=== PATIENT | male | born 1945 | race Caucasian/White ===

== ENCOUNTER 2018-10-14 09:51 | Inpatient (IN) | payer OTHER, MEDICARE ==
[2018-10-14] MEDS ORDERED: SODIUM CHLORIDE 0.9% 500 ML INFUS.BAG IV ONE ×2 (10:48→13:15)
[2018-10-14] MEDS ORDERED: PIPERACILLIN/TAZOB 3.375 GM 3.375 GM in DEXTROSE 5%-WATER - 50 ML IVPB ONE (10:48)
[2018-10-14] MEDS ORDERED: ACETAMINOPHEN 1000 MG/100 ML VIAL (NON FORMULARY) IVPB ONE (10:48)
[2018-10-14] MEDS ORDERED: ACETAMINOPHEN INJECTION 100 ML IVPB ONE (11:03)
[2018-10-14] MEDS ORDERED: PIPERACILLIN/TAZOB 3.375 GM 3.375 GM/50 ML BAG IVPB ONE (11:04)
[2018-10-14 11:12] LABS: BASO % 0.4 % (0-2.0); HEMATOCRIT 39.5 % (35.4-49); HEMOGLOBIN 13.2 GM/dL (11.7-16.9); LYMPH % 9.4 % (8-40); MCH 31.5 pg (25.7-33.7); MCHC 33.4 g/dl (32.0-35.9); MEAN CELL VOLUME 94.1 fl (80-96); MEAN PLT VOLUME 10.1 fl (7.5-11.1); MONO % 7.1 % (3.8-10.2); NEUT % 83.1 % (42.8-82.8); PLATELET COUNT 66 K/MM3 (134-434); RDW 14.4 % (11.9-15.9); WHITE BLOOD COUNT 3.6 K/mm3 (4.0-10.0)
[2018-10-14 11:15] LABS: VENOUS PC02 43.5 mmHg (38-52); VENOUS PH 7.4 (7.32-7.42); VENOUS PO2 30.5 mmHg (28-48)
[2018-10-14 11:27] LABS: INR 1.04 (0.83-1.09); PROTHROMBIN TIME (PATIENT) 12.3 SEC (9.7-13.0)
--- NOTE | 2018-10-14 11:35 | PDOC ---
History of Present Illness - General Chief Complaint: Respiratory Stated Complaint: COUGHING Time Seen by Provider: 10/14/18 10:43 - History of Present Illness Initial Comments: Curtis Meek is a 73yo man with a PMH of b/l kidney transplant on immunosuppresive therapy (tacrolimus, mycophenylate, prednisone), CAD s/p SC, s/ p unknown heart valve surgery, HTN, HLD who presents with 4 days of fever, productive cough, hiccups, and watery diarrhea. He reports that he is most concerned with the hiccups, but he does note a productive cough with blood-tinged sputum. He and his daughter felt that the cough might be due to breathing in dust at work several days ago. He has additionally had a subjective fever at home, but he has not taken any acetaminophen or any other medication for the fever. Mr Meek usually follows at [facility], but his daughter brought him to [facility] today because she was concerned the ED wait at [facility] would be too long. Neither knows whether Mr Meek received a flu shot this year, but they do report that he is compliant with his medications. He denies any nasal congestion , sore throat, known sick contacts, vomiting, or chills. He does report that his hiccups are continuos and prevent him from sleeping. He states that he has been eating/drinking normally but admits to some nausea and multiple episodes of watery diarrhea yesterday. Past History - Past Medical History Allergies/Adverse Reactions: Allergies Allergy/AdvReac Type Severity Reaction Status Date / Time No Known Allergies Allergy Verified 10/14/18 09:58 Home Medications: Ambulatory Orders Nifedipine [Nifedical Xl] 30 mg PO DAILY 08/24/16 Prednisone 5 mg PO DAILY 08/24/16 Tacrolimus [Prograf] 1 mg PO QID 08/24/16 Aspirin [ASA -] 81 mg PO DAILY 10/14/18 Atorvastatin Ca [Lipitor] 10 mg PO HS 10/14/18 Dapsone 100 mg PO DAILY 10/14/18 Mycophenolate Sodium [Mycophenolic Acid] 360 mg PO BID 10/14/18 Pantoprazole Sodium [Protonix -] 40 mg PO DAILY 10/14/18 Anemia: No Asthma: No Cancer: No Cardiac Disorders: Yes (2014) CVA: Yes (stroke 2006) COPD: No Dementia: No Diabetes: No GI Disorders: No Disorders: No HTN: Yes Liver Disease: No Seizures: No Thyroid Disease: No - Surgical History Cardiac Surgery: Yes (heart valve replacement 2014) Orthopedic Surgery: Yes (right knee fluid drained) - Suicide/Smoking/Psychosocial Hx Smoking History: Never smoked Have you smoked in the past 12 months: No Hx Alcohol Use: No Drug/Substance Use Hx: No Substance Use Type: None Review of Systems - Review of Systems Comments:: General: No weight or appetite change, no malaise. +Fever, +immunosuppressed HEENT: No changes in vision, no changes in hearing, no congestion, no sore throat CV: No chest pain, no palpitations, no LE edema. h/o SC and valve replacement Pulm: +Cough, see HPI GI: +nausea, +diarrhea. No vomiting. : No frequency, no urgency, no dysuria. h/o b/l kidney transplant Musc: No back pain, no joint swelling, no recent injury Skin: No rash, no lesions, no erythema Endo: No excessive thirst, no heat/cold intolerance Heme: No unusual bruising or bleeding, no swollen glands Neuro: No syncope, no numbness/tingling, no focal weakness Vasc: No claudication Psych: No recent change in mood, no SI or HI *Physical Exam - Vital Signs Last Vital Signs Temp Pulse Resp BP Pulse Ox 101.7 F H 94 H 20 111/56 L 97 10/14/18 09:54 10/14/18 09:54 10/14/18 09:54 10/14/18 09:54 10/14/18 09:54 - Physical Exam Comments: General: Comfortable, no acute distress HEENT: PERRL, EOMI, MMM, voice normal, normal neck ROM, no LAD Cards: RRR, no murmur appreciated Pulm: Comfortable on room air, cough with deep breaths Abd: Soft, nontender, nondistended Ext: Atraumatic. No LE edema. ROM intact. Strength 5/5 and equal bilaterally Vasc: Extremities WWP. Palpable radial and pedal pulses bilaterally Skin: Normal color, no rashes or lesions Neuro: A&Ox3, CN grossly intact, normal speech, motor/sensory grossly intact and symmetric Psych: Mood appropriate to situation Moderate Sedation - Procedure Monitoring Vital Signs: Procedure Monitoring Vital Signs Temperature 101.7 F H 10/14/18 09:54 Pulse Rate 94 H 10/14/18 09:54 Respiratory Rate 20 10/14/18 09:54 Blood Pressure 111/56 L 10/14/18 09:54 O2 Sat by Pulse Oximetry (%) 97 10/14/18 09:54 ED Treatment Course - LABORATORY CBC & Chemistry Diagram: 10/14/18 11:00 10/14/18 11:00 - RADIOLOGY Radiology Studies Ordered: Category Date Time Status CHEST X-RAY PORTABLE* [RAD] Stat Radiology 10/14/18 10:47 Ordered Medical Decision Making - Medical Decision Making 10/14/18 10:51 Curtis Meek is a 73yo man with a PMH of b/l kidney transplant on immunosuppresive therapy (tacrolimus, mycophenylate, prednisone), CAD s/p SC, s/ p unknown heart valve surgery, HTN, HLD who presents with 4 days of fever, productive cough, hiccups, and watery diarrhea. He was febrile to 101.7F on arrival to the ED. - Given fever and immunosuppresion, will start sepsis workup. With cough and diarrhea, may have influenza. - CBC, CMP, coags, trop, EKG, CXR, lactate, blood cultures, influenza - Will check tacrolimus level - 1L NS for sepsis, 1g IV tylenol for fever - Empiric vanc/zosyn 10/14/18 11:45 - Labs pending - CXR completed. Shows elevated R hemidiaphragm (previously seen) and RLL infiltrate. - EKG completed. NSR w/ a PVC. - Plan to admit for pneumonia once labs resulted. 10/14/18 12:28 - Labs reviewed. Notable for elevated Cr at 1.4, likely ALONSO. Trop 0.3. Though this could be chronic given h/o kidney transplant, valve replacement or related to elevated HR at 94, will need to repeat trop. - Will page for admission for pneumonia, trop elevation, ALONSO. 10/14/18 13:14 - Spoke with hospitalist, will accept for admission to telemetry. Requested cardiology consult, 1x dose plavix. 10/14/18 13:28 - Pt follows with Dr Murray; spoke to Dr Yun (on-call surgical scrub technician covering for Dr Murray). Reports that pt had TAVR on 05/27/16. Also has h/o DVT, mitral regurgitation, osteoporosis. Had most recent cath in 05/03/16 shows 2nd diagonal stenosis. He will either see Mr Meek or make sure that Dr Murray is Discussed with Dr Love. Sierra Palomo PGY1 *DC/Admit/Observation/Transfer Diagnosis at time of Disposition: Elevated troponin, Elevated serum creatinine, Pneumonia - Discharge Dispostion Decision to Admit order: Yes - Referrals - Patient Instructions - Post Discharge Activity
[2018-10-14 11:49] LABS: ALBUMIN 3.7 g/dl (3.4-5.0); ALK PHOS 52 U/L (45-117); ANION GAP 10 MMOL/L (8-16); BILIRUBIN,TOTAL 1.1 mg/dL (0.2-1); BLOOD UREA NITROGEN 21 mg/dL (7-18); CALCIUM 8.1 mg/dL (8.5-10.1); CHLORIDE 97 mmol/L (98-107); CO2 26 mmol/L (21-32); CREATININE 1.4 mg/dL (0.55-1.3); GLUCOSE,RANDOM 119 mg/dL (74-106); POTASSIUM 3.9 mmol/L (3.5-5.1); SGOT/AST 66 U/L (15-37); SGPT/ALT 21 U/L (13-61); SODIUM 133 mmol/L (136-145); TOT PROT 6.2 g/dl (6.4-8.2)
--- NOTE | 2018-10-14 11:57 | PDOC ---
Attending Attestation - Medical Decision Making 10/14/18 13:[address] Murray, patient's railcar carpenter, call returned from Dr. David Yun (pet resort concierge for Dr. Murray) case discussed with resident Dr. Palomo. <James Navarro - Last Filed: 10/14/18 13:22> - Resident Resident Name: Sierra Palomo - ED Attending Attestation I have performed the following: I have examined & evaluated the patient, The case was reviewed & discussed with the resident, I agree w/resident's findings & plan, Exceptions are as noted - HPI HPI: 10/14/18 11:51 The patient is a 73 year old male, with a significant past medical history of hypertension, hyperlipidemia, GERD, CAD (s/p [place] and unknown valve replacement), and kidney transplants, who presents to the emergency department with, 3 days of congestion, cough and fever. He denies any recent headache or dizziness. He denies any recent nausea, vomit, diarrhea or constipation. He denies any recent chest pain or shortness of breath. He denies any recent dysuria, frequency, urgency or hematuria. Allergies: NKDA Past surgical history: Bilateral kidney transplant, Unknown valve replaced. Social History: Nonsmoker. Denies EtOH use and recreational drug use. - Physicial Exam PE: 10/14/18 11:57 GENERAL: Awake, alert, and fully oriented, in no acute distress. HEAD: No signs of trauma EYES: PERRLA, EOMI, sclera anicteric, conjunctiva clear ENT: Auricles normal inspection, hearing grossly normal, nares patent, oropharynx clear without exudates. Moist mucosa NECK: Nontender, no stepoffs, Normal ROM, supple, no lymphadenopathy, JVD, or masses LUNGS: Breath sounds equal, clear to auscultation bilaterally. No wheezes, and no crackles HEART: Regular rate and rhythm, normal S1 and S2, no murmurs, rubs or gallops ABDOMEN: Soft, nontender, normoactive bowel sounds. No guarding, no rebound. No masses EXTREMITIES: Normal range of motion, no edema. No clubbing or cyanosis. No cords, erythema, or tenderness NEUROLOGICAL: Cranial nerves II through XII intact. 5/5 strength and sensation in all extremities, Normal speech, normal gait, normal cerebellar function SKIN: Warm, Dry, normal turgor, no rashes or lesions noted. - Critical Care Time Total Critical Care Time: 60 Critical Care Statement: The care of this patient involved high complexity decision making to prevent further life threatening deterioration of the patient 's condition and/or to evaluate & treat vital organ system(s) failure or risk of failure. - Medical Decision Making 10/14/18 11:57 73 M with renal transplant, on immunosuppression, presenting with fever. Will evaluate for sepsis. - Labs, cultures - CXR, UA - IVF, tylenol - Vanc, zosyn - Admit 10/14/18 12:08 CXR shows RLL PNA <Caleb Love - Last Filed: 10/18/18 09:40> Attestations - Attestations 10/14/18 13:25 Documentation prepared by James Navarro, acting as resident medical officer for Caleb Love MD. <James Navarro - Last Filed: 10/14/18 13:22>
[2018-10-14] MEDS ORDERED: CLOPIDOGREL BISULFATE 75 MG TABLET (FP) PO ONE (13:15)
[2018-10-14] MEDS ORDERED: CLOPIDOGREL BISULFATE 75 MG TABLET (FP) ONE (13:32)
[2018-10-14 13:53] LABS: URINE APPEARANCE CLEAR; URINE BILIRUBIN NEGATIVE (<2.0 mg/dL); URINE GLUCOSE (UA) NEGATIVE (NEGATIVE); URINE KETONE NEGATIVE (NEGATIVE); URINE LEUK ESTERASE NEGATIVE (NEGATIVE); URINE NITRITE NEGATIVE (NEGATIVE); URINE PROTEIN 2+ (NEGATIVE); URINE UROBILINOGEN NEGATIVE mg/dL (0.2-1.0)
[2018-10-14 14:07] LABS: URINE COLOR DK YELLOW
[2018-10-14 14:08] LABS: EPI CELLS RARE /HPF (FEW); URINE MUCUS RARE
[2018-10-14] MEDS ORDERED: AZITHROMYCIN IVPB 500 MG/250 ML BAG IVPB ONE (14:25)
--- NOTE | 2018-10-14 14:25 | HP ---
CHIEF COMPLAINT:cough , fever and hiccough PCP: Damian HISTORY OF PRESENT ILLNESS: The patient is a 73 year old male, with a significant past medical history of hypertension, hyperlipidemia, GERD, CAD (s/p AR and unknown valve replacement), and kidney transplants, who presents to the emergency department with, 3 days of congestion, cough and fever. He denies any recent headache or dizziness. He denies any recent nausea, vomit, diarrhea or constipation. He denies any recent chest pain or shortness of breath. He denies any recent dysuria, frequency, urgency or hematuria. Daughter on bed side and ER course was notable for: (1)pneumonia (2)elevated troponin (3) immuno suppressed Recent Travel:non PAST MEDICAL HISTORY: hypertension, hyperlipidemia, GERD, CAD (s/p AR and unknown valve replacement) , and kidney transplants, PAST SURGICAL HISTORY: heart valve replacement Social History: Smoking:none Alcohol:none Drugs: none Family History: Allergies none No Known Allergies Allergy (Verified 10/14/18 09:58) HOME MEDICATIONS: Home Medications Medication Instructions Recorded Nifedipine [Nifedical Xl] 30 mg PO DAILY 08/24/16 Prednisone 5 mg PO DAILY 08/24/16 Tacrolimus [Prograf] 1 mg PO QID 08/24/16 Aspirin [ASA -] 81 mg PO DAILY 10/14/18 Atorvastatin Ca [Lipitor] 10 mg PO HS 10/14/18 Dapsone 100 mg PO DAILY 10/14/18 Mycophenolate Sodium [Mycophenolic 360 mg PO BID 10/14/18 Acid] Pantoprazole Sodium [Protonix -] 40 mg PO DAILY 10/14/18 REVIEW OF SYSTEMS CONSTITUTIONAL: present fever, chills, diaphoresis, generalized weakness, malaise, loss of appetite, weight change HEENT: Absent: rhinorrhea, nasal congestion, throat pain, throat swelling, difficulty swallowing, mouth swelling, ear pain, eye pain, visual changes CARDIOVASCULAR: Absent: chest pain, syncope, palpitations, irregular heart rate, lightheadedness , peripheral edema RESPIRATORY: cough, shortness of breath, dyspnea with exertion, wheezing, negative stridor , hemoptysis GASTROINTESTINAL: Absent: abdominal pain, abdominal distension, nausea, vomiting, diarrhea, constipation, melena, hematochezia GENITOURINARY: Absent: dysuria, frequency, urgency, hesitancy, hematuria, flank pain, genital pain MUSCULOSKELETAL: Absent: myalgia, arthralgia, joint swelling, back pain, neck pain SKIN: Absent: rash, itching, pallor HEMATOLOGIC/IMMUNOLOGIC: Absent: easy bleeding, easy bruising, lymphadenopathy, frequent infections ENDOCRINE: Absent: unexplained weight gain, unexplained weight loss, heat intolerance, cold intolerance NEUROLOGIC: Absent: headache, focal weakness or paresthesias, dizziness, unsteady gait, seizure, mental status changes, bladder or bowel incontinence PSYCHIATRIC: Absent: anxiety, depression, suicidal or homicidal ideation, hallucinations. PHYSICAL EXAMINATION Vital Signs - 24 hr 10/14/18 10/14/18 09:54 11:20 Temperature 101.7 F H Pulse Rate 94 H Respiratory 20 Rate Blood Pressure 111/56 L O2 Sat by Pulse 97 98 Oximetry (%) GENERAL: Awake, alert, and fully oriented, congested HEAD: Normal with no signs of trauma. EYES: Pupils equal, round and reactive to light, extraocular movements intact, sclera anicteric, conjunctiva clear. No lid lag. EARS, NOSE, THROAT: Ears normal, nares patent, oropharynx clear without exudates. Moist mucous membranes. NECK: Normal range of motion, supple without lymphadenopathy, JVD, or masses. LUNGS: Breath sounds equal, he has bronchial breathing rt lower lung HEART: Regular rate and rhythm, normal S1 and S2 with murmur, rub or gallop. ABDOMEN: Soft, nontender, not distended, normoactive bowel sounds, no guarding, no rebound, no masses. No hepatomegaly or splenomegaly. MUSCULOSKELETAL: Normal range of motion at all joints. No bony deformities or tenderness. No CVA tenderness. UPPER EXTREMITIES: 2+ pulses, warm, well-perfused. No cyanosis. No clubbing. No peripheral edema. LOWER EXTREMITIES: 2+ pulses, warm, well-perfused. No calf tenderness. No peripheral edema. NEUROLOGICAL: Cranial nerves II-XII intact. Normal speech. Normal gait. PSYCHIATRIC: Cooperative. Good eye contact. Appropriate mood and affect. SKIN: Warm, dry, normal turgor, no rashes or lesions noted, normal capillary refill. Laboratory Results - last 24 hr 10/14/18 10/14/18 10/14/18 11:00 11:00 11:00 WBC 3.6 L RBC 4.20 Hgb 13.2 Hct 39.5 MCV 94.1 MCH 31.5 MCHC 33.4 RDW 14.4 Plt Count 66 L MPV 10.1 D Absolute Neuts (auto) 3.0 Neutrophils % 83.1 H Lymphocytes % 9.4 D Monocytes % 7.1 Eosinophils % 0.0 D Basophils % 0.4 Nucleated RBC % 0 PT with INR 12.30 INR 1.04 PTT (Actin FS) 31.0 VBG pH 7.40 POC VBG pCO2 43.5 POC VBG pO2 30.5 Mixed VBG HCO3 26.2 H Sodium Potassium Chloride Carbon Dioxide Anion Gap BUN Creatinine Creat Clearance w eGFR Random Glucose Lactic Acid Calcium Total Bilirubin AST ALT Alkaline Phosphatase Troponin I Total Protein Albumin Urine Color Urine Appearance Urine pH Ur Specific Cocoa Urine Protein Urine Glucose (UA) Urine Ketones Urine Blood Urine Nitrite Urine Bilirubin Urine Urobilinogen Ur Leukocyte Esterase Urine WBC (Auto) Urine RBC (Auto) Ur Epithelial Cells Urine Mucus Influenza A (Rapid) Influenza B (Rapid) 10/14/18 10/14/18 10/14/18 11:00 11:00 11:00 WBC RBC Hgb Hct MCV MCH MCHC RDW Plt Count MPV Absolute Neuts (auto) Neutrophils % Lymphocytes % Monocytes % Eosinophils % Basophils % Nucleated RBC % PT with INR INR PTT (Actin FS) VBG pH POC VBG pCO2 POC VBG pO2 Mixed VBG HCO3 Sodium 133 L Potassium 3.9 Chloride 97 L Carbon Dioxide 26 Anion Gap 10 BUN 21 H Creatinine 1.4 H Creat Clearance w eGFR 49.96 Random Glucose 119 H Lactic Acid 1.4 Calcium 8.1 L Total Bilirubin 1.1 H AST 66 H ALT 21 Alkaline Phosphatase 52 Troponin I 0.30 H Total Protein 6.2 L Albumin 3.7 Urine Color Urine Appearance Urine pH Ur Specific Cocoa Urine Protein Urine Glucose (UA) Urine Ketones Urine Blood Urine Nitrite Urine Bilirubin Urine Urobilinogen Ur Leukocyte Esterase Urine WBC (Auto) Urine RBC (Auto) Ur Epithelial Cells Urine Mucus Influenza A (Rapid) Influenza B (Rapid) 10/14/18 10/14/18 11:00 13:45 WBC RBC Hgb Hct MCV MCH MCHC RDW Plt Count MPV Absolute Neuts (auto) Neutrophils % Lymphocytes % Monocytes % Eosinophils % Basophils % Nucleated RBC % PT with INR INR PTT (Actin FS) VBG pH POC VBG pCO2 POC VBG pO2 Mixed VBG HCO3 Sodium Potassium Chloride Carbon Dioxide Anion Gap BUN Creatinine Creat Clearance w eGFR Random Glucose Lactic Acid Calcium Total Bilirubin AST ALT Alkaline Phosphatase Troponin I Total Protein Albumin Urine Color Dk yellow Urine Appearance Clear Urine pH 5.0 Ur Specific Cocoa 1.034 Urine Protein 2+ H Urine Glucose (UA) Negative Urine Ketones Negative Urine Blood Negative Urine Nitrite Negative Urine Bilirubin Negative Urine Urobilinogen Negative Ur Leukocyte Esterase Negative Urine WBC (Auto) 1 Urine RBC (Auto) None Ur Epithelial Cells Rare Urine Mucus Rare Influenza A (Rapid) Negative Influenza B (Rapid) Negative ASSESSMENT/PLAN: The patient is a 73 year old male, with a significant past medical history of hypertension, hyperlipidemia, GERD, CAD (s/p AR and unknown valve replacement), and kidney transplants, who presents to the emergency department with, 3 days of congestion, cough and fever. Pneuomnia will start on pip and zithromax blood c/s oxygnen bronchodilator prn oxygen htn nefidipine elevaed cardiac enzymes admit to tele , aspirin cardiac consult called and md aware serial troponins Kidney transplant start on his usual medication high lipids start lipitor gerd protonox dvt prophylaxis zeus stocking no need for heaprin dw daughter in detail about prognosis.' 6 pm his 2nd troponin is coming down and he has no chest pains
[2018-10-14] MEDS: AZITHROMYCIN IVPB 500 MG/250 ML BAG IVPB SCH (14:27)
[2018-10-14] MEDS: DAPSONE 100 MG TABLET PO SCH ×2 (15:03→15:05)
[2018-10-14] MEDS ORDERED: PIPERACILLIN/TAZOBACTAM 4.5 GM VIAL IVPB SCH (18:00)
--- NOTE | 2018-10-14 18:14 | CON.CARD ---
Cardiology Consult (text) - Consultation Consultation Note: I had a long telephone conversation with Dr. Palomo in ED regarding Mr. Meek 's cardiac history at 2:00 PM. I did not realized it was an official consult. I did ask Dr. Palomo whether I should see the patient. Mr. Meek is a 73 year-old with a PMHx hypertension, non-obstructive CAD, cardiac cath 05/31/2016 at [facility] showed only D2 stenosis. 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 LVEF = 65%, normal function AV and mild MR. also history of TIA, cardiac arrest 04/14/15, received 200J shock x1 in the field, [facility] and hypothermia protocol , DVT, ESRD s/p first renal transplant 10/24/2001 amd re-transplant 01/22/2010 with good baseline transplant renal function, thrombocytopenia treated with steroids for ITP. Mr. Meek was brought to ED 10/14/2018 with 4 days of fever, productive cough, hiccups, and watery diarrhea. He was found to have RLL pneumonia. Mildly elevated troponin noted. There is no reported angina. Mr. Meek has no significant CAD. The mildly elevated troponin could be caused be demand ischemia. Therefore, he should not be treated for acute coronary syndrome. Please call us if additional question arises.
[2018-10-14] MEDS ORDERED: PIPERACILLIN/TAZOB 4.5 GM 4.5 GM/100 ML BAG IVPB ONE (18:30)
--- NOTE | 2018-10-14 18:30 | EKG ---
Test Reason : Blood Pressure : / mmHG Vent. Rate : 079 BPM Atrial Rate : 079 BPM P-R Int : 202 ms QRS Dur : 100 ms QT Int : 340 ms P-R-T Axes : 059 -27 040 degrees QTc Int : 389 ms SINUS RHYTHM WITH PREMATURE VENTRICULAR COMPLEXES WHEN COMPARED WITH ECG OF 25-MAY-2015 23:17, PREMATURE VENTRICULAR COMPLEXES ARE NOW PRESENT VENT. RATE HAS INCREASED BY 27 BPM Confirmed by DEEPA SCOTT, TRACEY ([id number]) on 10/14/2018 6:30:32 PM Referred By: Confirmed By:TRACEY ARENAS MD
[2018-10-14] MEDS: PIPERACILLIN/TAZOB 4.5 GM 4.5 GM in DEXTROSE 5%-WATER 100 ML IVPB SCH (18:35)
[2018-10-14] MEDS: TACROLIMUS ANHYDROUS 1 MG CAPSULE PO SCH ×2 (18:49→23:07)
[2018-10-14] MEDS ORDERED: ATORVASTATIN CA 10 MG TABLET (FP) ONE (23:04)
[2018-10-14] MEDS: ATORVASTATIN CA 10 MG TABLET (FP) PO SCH (23:06)
[2018-10-14] MEDS: MYCOPHENOLATE SODIUM 360 MG TABLET.DR PO SCH (23:06)
[2018-10-14] MEDS ORDERED: INSULIN (LEVEMIR) 100 UNITS/ML UNITS SQ ONE (23:50)
[2018-10-14] MEDS ORDERED: INSULIN (NOVOLOG) ASPART 100 UNITS/ML 10ML VIAL ONE (23:51)
[2018-10-15 00:58] VITALS: BMI 26.8
[2018-10-15] MEDS ORDERED: PIPERACILLIN/TAZOBACTAM 4.5 GM VIAL IVPB ONE ×2 (01:39→09:28)
[2018-10-15] MEDS ORDERED: DEXTROSE 5%-WATER 100 ML IVPB ONE ×2 (01:40→09:28)
[2018-10-15] MEDS: PIPERACILLIN/TAZOB 4.5 GM 4.5 GM in DEXTROSE 5%-WATER 100 ML IVPB SCH ×3 (01:42→20:44)
[2018-10-15 07:19] LABS: BASO % 0.3 % (0-2.0); HEMATOCRIT 37.5 % (35.4-49); HEMOGLOBIN 12.6 GM/dL (11.7-16.9); LYMPH % 12.9 % (8-40); MCH 31.6 pg (25.7-33.7); MCHC 33.6 g/dl (32.0-35.9); MEAN CELL VOLUME 93.9 fl (80-96); MONO % 6.3 % (3.8-10.2); NEUT % 80.5 % (42.8-82.8); PLATELET COUNT 61 K/MM3 (134-434); RDW 14.4 % (11.9-15.9); WHITE BLOOD COUNT 3.2 K/mm3 (4.0-10.0)
[2018-10-15 07:44] LABS: ALBUMIN 3.3 g/dl (3.4-5.0); ALK PHOS 43 U/L (45-117); ANION GAP 10 MMOL/L (8-16); BILIRUBIN,TOTAL 1.1 mg/dL (0.2-1); BLOOD UREA NITROGEN 19 mg/dL (7-18); CALCIUM 7.7 mg/dL (8.5-10.1); CHLORIDE 100 mmol/L (98-107); CO2 23 mmol/L (21-32); CREATININE 1.2 mg/dL (0.55-1.3); GLUCOSE,RANDOM 91 mg/dL (74-106); POTASSIUM 3.9 mmol/L (3.5-5.1); SGOT/AST 69 U/L (15-37); SGPT/ALT 20 U/L (13-61); SODIUM 133 mmol/L (136-145); TOT PROT 5.7 g/dl (6.4-8.2)
--- NOTE | 2018-10-15 07:57 | PN ---
Progress Note, Physician History of Present Illness: 24H events: -admitted for RLL PNA being treated with azithromycin and zosyn -called pts pharmacy to verify meds list, tacro dosing is 3mg BID -spoke with pt's transplant provider at [facility] Dr. Kavon Whitley -WBC continues to slowly downtrend -pt with pervasive hiccups, which interrupt his sleep -pt reports orthopnea - Current Medication List Current Medications: Active Medications Aspirin (Asa -) 81 mg PO DAILY [facility] Atorvastatin Calcium (Lipitor -) 10 mg PO HS [facility] Last Admin: 10/14/18 23:06 Dose: 10 mg Dapsone (Dapsone -) 100 mg PO DAILY [facility] Last Admin: 10/14/18 15:05 Dose: Not Given Azithromycin (Zithromax 500mg Ivpb (Pre-Docked)) 500 mg in 250 mls @ 250 mls/ hr IVPB DAILY [facility] Last Admin: 10/14/18 14:27 Dose: 250 mls/hr Piperacillin Sod/Tazobactam (Sod 4.5 gm/ Dextrose) 100 mls @ 200 mls/hr IVPB Q8H-IV [facility] Stop: 10/15/18 17:59 Last Admin: 10/15/18 01:42 Dose: 200 mls/hr Piperacillin Sod/Tazobactam (Sod 4.5 gm/ Dextrose) 100 mls @ 200 mls/hr IVPB Q8H-IV [facility] Ipratropium [place] (Atrovent 0.02% Nebulizer -) 1 amp NEB Q4H PRN PRN Reason: WHEEZING Mycophenolate Sodium (Mycophenolic Acid) 360 mg PO BID [facility] Last Admin: 10/14/18 23:06 Dose: 360 mg Nifedipine (Procardia Xl -) 30 mg PO DAILY [facility] Pantoprazole Sodium (Protonix -) 40 mg PO DAILY [facility] Prednisone (Deltasone -) 5 mg PO DAILY [facility] Tacrolimus (Prograf) 1 mg PO QID [facility] Last Admin: 10/14/18 23:07 Dose: 1 mg - Objective Vital Signs: Vital Signs Temperature 100.1 F H 10/15/18 06:00 Pulse Rate 91 H 10/15/18 06:00 Respiratory Rate 20 10/15/18 06:00 Blood Pressure 122/60 10/15/18 06:00 O2 Sat by Pulse Oximetry (%) 96 10/15/18 01:00 Constitutional: Yes: Calm, Mild Distress (due to hiccups) Eyes: Yes: Conjunctiva Clear HENT: Yes: Atraumatic, Normocephalic Neck: Yes: Supple Cardiovascular: Yes: Regular Rate and Rhythm Respiratory: Yes: Diminished, Orthopnea Gastrointestinal: Yes: Soft, Hypoactive Bowel Sounds ...Rectal Exam: Yes: Deferred Musculoskeletal: Yes: Muscle Weakness Extremities: Yes: WNL Edema: No Peripheral Pulses WNL: Yes Peripheral Pulses: Left Radial: 2+, Right Radial: 2+, Left Doralis Pedis: 1+, Right Dorsalis Pedis: 1+ Neurological: Yes: Alert, Oriented, Weakness ...Motor Strength: WNL Psychiatric: Yes: Alert, Oriented Labs: CBC, BMP 10/15/18 06:30 10/15/18 06:30 INR, PTT INR 1.04 (0.83-1.09) 10/14/18 11:00 Problem List - Problems (1) Right lower lobe pneumonia Assessment/Plan: -trend fever curve and WBC -APAP PRN temp > 101 -zosyn 3.375gm Q8hrs -consult ID for recommendations due to h/o renal transplant Code(s): J18.1 - LOBAR PNEUMONIA, UNSPECIFIED ORGANISM (2) Renal transplant recipient Assessment/Plan: pt written for tacro 1mg QID, will dose BID since 4x per day is not customary -tacro home dose is 3mg BID, decrease to 2mg BID in light of infectious process and leukopenia hold cellcept 360mg due to leukopenia dapsone 100mg daily prednisone 5mg daily Code(s): Z94.0 - KIDNEY TRANSPLANT STATUS (3) HTN (hypertension) Assessment/Plan: cardiac diet procardia XL 30mg Code(s): I10 - ESSENTIAL (PRIMARY) HYPERTENSION (4) Prophylactic measure Assessment/Plan: GI: senna and colace. PPI DVT PPX w/ SCDs, hold off on heparin SC due to thrombocytopenia DISPO: Full code Code(s): Z29.9 - ENCOUNTER FOR PROPHYLACTIC MEASURES, UNSPECIFIED (5) Hyperlipidemia Assessment/Plan: ASA 81mg daily lipitor 10mg qhs Code(s): E78.5 - HYPERLIPIDEMIA, UNSPECIFIED Impression/Plan Impression/Plan: bowel regimen with senna and colace Full code Visit type - Emergency Visit Emergency Visit: Yes ED Registration Date: 10/14/18 Care time: The patient presented to the Emergency Department on the above date and was hospitalized for further evaluation of their emergent condition. - New Patient This patient is new to me today: Yes Date on this admission: 10/15/18 - Critical Care Critical Care patient: No - Discharge Referral [facility]erred to [facility] No
[2018-10-15] MEDS ORDERED: SENNOSIDES 8.6MG TABLET (FP) PO PRN (08:00)
[2018-10-15] MEDS ORDERED: DOCUSATE SODIUM 100 MG CAPSULE (FP) PO PRN (08:00)
[2018-10-15] MEDS ORDERED: PT OWN MED DRAWER 7, Y5N ONE ×2 (09:29→21:21)
[2018-10-15] MEDS: MYCOPHENOLATE SODIUM 360 MG TABLET.DR PO SCH (09:45)
[2018-10-15] MEDS: DAPSONE 100 MG TABLET PO SCH (09:45)
[2018-10-15] MEDS: ASPIRIN 81 MG CHEWABLE TABLETS PO SCH (09:45)
[2018-10-15] MEDS: predniSONE 5 MG TABLET (UD) PO SCH (09:45)
[2018-10-15] MEDS: NIFEdipine E.R. 30 MG TABLET (FP) PO SCH (09:45)
[2018-10-15] MEDS: TACROLIMUS ANHYDROUS 1 MG CAPSULE PO SCH ×3 (09:46→21:23)
[2018-10-15] MEDS: PANTOPRAZOLE 40 MG TABLET (FP) PO SCH (09:46)
[2018-10-15] MEDS ORDERED: TACROLIMUS ANHYDROUS 1 MG CAPSULE PO SCH (10:00)
--- NOTE | 2018-10-15 10:13 | CON.CARD ---
Consult Consult Specialty:: Cardiology Referred by:: ER Reason for Consultation:: elevated troponin - History of Present Illness Chief Complaint: cough, sob, hiccups, fever History of Present Illness: 73 year-old with a PMHx hypertension, non-obstructive CAD, cardiac cath [address] [facility] showed only D2 stenosis. 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 LVEF = 65%, normal function AV and mild MR. also history of TIA, cardiac arrest 04/14/15, received 200J shock x1 in the field, taken to [facility] where he was started on amiodarone and hypothermia protocol, DVT , ESRD s/p first renal transplant 10/24/2001 amd re-transplant 01/22/2010 with good baseline transplant renal function, thrombocytopenia treated with steroids for ITP. Now admitted 10/14/2018 with 4 days of fever, productive cough, hiccups, and watery diarrhea. He was found to have RLL pneumonia. Mildly elevated troponin noted. Pt was seen and examined today in [facility]. He continues to have hiccups and is uncomfortable due to this. Denies any chest pain no pnd, orthopnea or le edema, no lightheadedness or dizziness. - History Source History Provided By: Patient Limitations to Obtaining History: No Limitations - Past Medical History REFERRAL AGENT: Yes: CVA Cardio/Vascular: Yes: Aortic Stenosis, CAD, Deep Vein Thrombosis, HTN, Hyperlipdemia, Murmur Renal/: Yes: Renal Failure, Other (s/p renal TX) - Past Surgical History Past Surgical History: Yes: AV Fistula/Graft, Kidney Transplant - Alcohol/Substance Use Hx Alcohol Use: No History of Substance Use: reports: None - Smoking History Smoking history: Never smoked Have you smoked in the past 12 months: No - Social History ADL: Independent History of Recent Travel: No Home Medications - Allergies Allergies/Adverse Reactions: Allergies Allergy/AdvReac Type Severity Reaction Status Date / Time No Known Allergies Allergy Verified 10/14/18 09:58 - Home Medications Home Medications: Ambulatory Orders Nifedipine [Nifedical Xl] 30 mg PO DAILY 08/24/16 Prednisone 5 mg PO DAILY 08/24/16 Tacrolimus [Prograf] 1 mg PO QID 08/24/16 Aspirin [ASA -] 81 mg PO DAILY 10/14/18 Atorvastatin Ca [Lipitor] 10 mg PO HS 10/14/18 Dapsone 100 mg PO DAILY 10/14/18 Mycophenolate Sodium [Mycophenolic Acid] 360 mg PO BID 10/14/18 Pantoprazole Sodium [Protonix -] 40 mg PO DAILY 10/14/18 Family Disease History - Family Disease History Family History: Denies Review of Systems - Review of Systems Constitutional: reports: Chills, Fever, Malaise. denies: No Symptoms, Diaphoresis, Lethargy, Loss of Appetite, Night Sweats, Unintentional Wgt. Loss, Weakness, Other Eyes: denies: No Symptoms, Blind Spots, Blurred Vision, Double Vision, Eye Pain , Floaters, Photophobia, Recent Change in Vision, Other HENT: denies: No Symptoms, Difficult Swallowing, Ear Discharge, Ear Pain, Epistaxis, Gingival Bleeding, Hearing Loss, Mouth Swelling, Nasal Congestion, Ocular Prosthesis, Throat Pain, Toothache, Ringing in Ears, Other Neck: denies: No Symptoms, Decreased ROM, Lumps, Pain on Movement, Stiffness, Swollen Glands, Tenderness, Other Cardiovascular: reports: Shortness of Breath. denies: No Symptoms, Chest Pain, Edema, Palpitations, Other Respiratory: reports: Cough, SOB. denies: No Symptoms, Exercise Intolerance, Hemoptysis, Orthopnea, PND, Snoring, SOB on Exertion, Wheezing, Other Gastrointestinal: denies: No Symptoms, Abdominal Pain, Bloating, Constipation, Diarrhea, Dysphagia, Indigestion, Melena, Nausea, Rectal Bleeding, Vomiting, Vomiting Blood, Other Genitourinary: denies: No Symptoms, Burning, Discharge, Dysuria, Flank Pain, Frequency, Hematuria, Incontinence, Lesions, Menses, Pain, Testicular Mass, Testicular Pain, Testicular Swelling, Urgency, Vaginal Bleeding, Other Breasts: denies: No Symptoms Reported, See HPI, Breast Implants, Discharge from Nipple, Lumps, Pain, Skin Changes, Other Musculoskeletal: denies: No Symptoms, Back Pain, Crepitus, Decreased ROM, Extremity Pain, Joint Pain, Joint Swelling, Muscle Pain, Muscle Cramps, Muscle Weakness, Other Integumentary: denies: No Symptoms, Blister, Bruising, Change in Color, Eczema, Erythema, Incision, Lesions, Lump, Pallor, Pruritis, Rash, Wound, Other Neurological: denies: No Symptoms, Change in LOC, Change in Speech, Confusion, Dizziness, Headache, Incoordination, Numbness, Parasthesia, Pre-Existing Deficit , Seizure, Syncope, Tremors, Unsteady Gait, Weakness, Other Endocrine: denies: No Symptoms, Excessive Sweating, Flushing, Increased Hunger, Increased Thirst, Intolerance to Cold, Intolerance to Heat, Unexplained Weight Gain, Unexplained Weight Loss, Other Hematology/Lymphatic: denies: No Symptoms, Easily Bruised, Excessive Bleeding, Swollen Glands, Other Psychiatric: denies: No Symptoms, Altered Sleep Pattern, Anxiety, Depression, Hallucinations, Panic, Paranoia, Suicidal, Other Vital Signs: Vital Signs Temperature 100.1 F H 10/15/18 09:51 Pulse Rate 83 10/15/18 09:51 Respiratory Rate 20 10/15/18 09:51 Blood Pressure 131/76 10/15/18 09:51 O2 Sat by Pulse Oximetry (%) 96 10/15/18 01:00 Constitutional: Yes: No Distress, Calm Eyes: Yes: Conjunctiva Clear, EOM Intact HENT: Yes: Atraumatic, Normocephalic Neck: Yes: Supple, Trachea Midline Respiratory: Yes: Regular, Diminished, Rhonchi. No: Rales, SOB, Wheezes Gastrointestinal: Yes: Normal Bowel Sounds, Soft. No: Distention, Tenderness Cardiovascular: Yes: Regular Rate and Rhythm. No: Bradycardia, Tachycardia, Pulse Irregular, Gallop, Rub, Varicosities JVD: No Carotid Bruit: No PMI: Non-Displaced Heart Sounds: Yes: S1, S2. No: Split S2, S3, S4, Clicks, Gallop, Rub, Bruit Murmur: Yes: Systolic Murmur, Grade 2 Extremities: Yes: WNL Edema: No Peripheral Pulses WNL: Yes Neurological: Yes: Alert, Oriented Psychiatric: Yes: Alert, Oriented - Other Data Labs, Other Data: CBC, BMP 10/15/18 06:30 10/15/18 06:30 INR, PTT INR 1.04 (0.83-1.09) 10/14/18 11:00 Troponin, BNP 10/14/18 10/14/18 11:00 14:58 Troponin I 0.30 H 0.26 H Troponin, BNP 10/14/18 10/14/18 11:00 14:58 Troponin I 0.30 H 0.26 H ekg nsr, 79bpm with frequent pvcs, no sig St abnl Echo: Report Reviewed Prior Cardiac Procedures: Cardiac Catheterization, Valve Surgery Imaging - Results Chest X-ray: Report Reviewed, Image Reviewed EKG: Report Reviewed, Image Reviewed Other: Report Reviewed, Image Reviewed (tele-nsr, frequent pvcs, V couplets and V triplets, artifact) Assessment/Plan 73 year-old with a PMHx hypertension, non-obstructive CAD, cardiac cath [address] [facility] showed only D2 stenosis. 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 LVEF = 65%, normal function AV and mild MR. also history of TIA, cardiac arrest 04/14/15, received 200J shock x1 in the field, [facility] amiodarone and hypothermia protocol, DVT , ESRD s/p first renal transplant 10/24/2001 amd re-transplant 01/22/2010 with good baseline transplant renal function, thrombocytopenia treated with steroids for ITP. Now admitted 10/14/2018 with 4 days of fever, productive cough, hiccups, and watery diarrhea. He was found to have RLL pneumonia. Mildly elevated troponin noted. He continues to have hiccups and is uncomfortable due to this. Denies any chest pain no pnd, orthopnea or le edema, no lightheadedness or dizziness. Elevated troponin -mildly elevated and trending down with no chest pain and known mild non-obs CAD with only D2 stenosis on prior cardiac cath -unlikely ACS -more likely secondary to PNA, ADELINA -cont home cardiac meds, ASA 81mg daily, Lipitor -presume not currently on metoprolol due to history of bradycardia, last time listed as active in [facility] EMR was 11/09/17, can hold for now and re-evaluate as outpatient -no further inpatient ischemic or other cardiac work up is needed at this point. -cont treatment for PNA -ok to dc tele -close outpatient fup with Dr. Murray. Please call with any additional questions.
[2018-10-15 10:32] LABS: BILIRUBIN,DIRECT 0.4 mg/dL (0.0-0.2); MAGNESIUM 1.8 mg/dL (1.8-2.4); PHOSPHOROUS 2.9 mg/dL (2.5-4.9)
[2018-10-15] MEDS: AZITHROMYCIN IVPB 500 MG/250 ML BAG IVPB SCH (10:37)
[2018-10-15] MEDS: ACETAMINOPHEN 325 MG TABLET (FP) PO PRN (15:48)
[2018-10-15] MEDS ORDERED: PIPERACILLIN/TAZOBACTAM 3.375 GM VIAL IVPB ONE (17:37)
[2018-10-15] MEDS ORDERED: DEXTROSE 5%-WATER - 50 ML IVPB ONE (17:38)
[2018-10-15] MEDS: PIPERACILLIN/TAZOB 3.375 GM 3.375 GM in DEXTROSE 5%-WATER - 50 ML IVPB SCH (17:47)
[2018-10-15] MEDS: ATORVASTATIN CA 10 MG TABLET (FP) PO SCH (21:23)
--- NOTE | 2018-10-15 23:26 | PN ---
Progress Note (short form) - Note Progress Note: ID CONSULT DICTATED RLL PNEUMONIA S/P RENAL TRANSPLANT S/TAVR PENDING SEPSIS WORKUP EMPIRIC ZOSYN
--- NOTE | 2018-10-16 00:32 | CONS ---
DATE OF CONSULTATION: DATE OF DICTATION: 10/15/2018 HISTORY OF PRESENT ILLNESS: The patient is a 73-year-old male status post renal transplant, evaluated for pneumonia. Patient was admitted to the hospital on October 14, 2018, with a 4-day history of worsening shortness of breath, subjective fever and cough productive of blood-tinged sputum. He presented to the emergency room where a chest x-ray showed a right lower lobe infiltrate. He was empirically treated with Zithromax and Zosyn. Family member reports that he became ill after working outdoors. He was exposed to fumes and dust and this precipitated his respiratory tract illness. He denies any ill contacts. He is a nonsmoker. He is unsure whether or not he received influenza vaccine. The patient is status post renal transplant and is on immunosuppressive therapy. PAST MEDICAL HISTORY: Positive for renal transplant, DVT, coronary artery disease, myocardial infarction, hypertension, hyperlipidemia, history of cardiac arrest. PAST SURGICAL HISTORY: Status post renal transplant, status post TAVR in May 2016. ALLERGIES: No known allergies. MEDICATIONS: At the present time include prednisone 5 mg daily, Colace, nifedipine, Lipitor, Prograf, aspirin, dapsone, mycophenolate. SOCIAL HISTORY: He lives in the community with his family. He is a nonsmoker, nondrinker. REVIEW OF SYSTEMS: Neurologic: No loss of consciousness, seizure activity, focal weakness. Cardiac: Negative for chest pain or palpitations. Respiratory: As per HPI. Gastrointestinal: Negative vomiting or diarrhea. Genitourinary: Status post renal transplant. LABORATORY DATA: White count 3.2, 80 neutrophils, 11 lymphocytes, 6 monocytes. BUN 19, creatinine 1.2, total bilirubin 1.2, alkaline phosphatase 43, AST 69. Influenza swab is negative. Urinalysis: 1 white cell. Blood culture: Preliminarily negative. Urine legionella and pneumococcal antigens negative. PHYSICAL EXAMINATION: General: He is awake and alert. He is out of bed to chair. Vital Signs: Temperature 101.1, blood pressure 129/58, pulse 83 and regular, respirations 20 per minute. HEENT: Sclerae are anicteric. Heart Sounds: S1, S2. Lungs: Crepitations in the bases bilaterally. Abdomen: Soft, nontender. Extremities: 1+ edema. IMPRESSION: 1. Community-acquired versus atypical right lower lobe pneumonia. 2. Renal transplant on immunosuppressive therapy. 3. Status post transcatheter aortic valve replacement. 4. Leukopenia. PLAN: Await culture results. Obtain sputum culture. Continue empiric antibiotic coverage with Zosyn, pending cultures. Continue dapsone prophylaxis, antirejection medications. Will follow. Thank you for the kind referral. ALVAREZ ZIMMERMAN M.D. [id number]
[2018-10-16] MEDS ORDERED: PIPERACILLIN/TAZOBACTAM 3.375 GM VIAL IVPB ONE ×3 (02:24→16:29)
[2018-10-16] MEDS ORDERED: DEXTROSE 5%-WATER - 50 ML IVPB ONE ×3 (02:24→16:29)
[2018-10-16] MEDS: PIPERACILLIN/TAZOB 3.375 GM 3.375 GM in DEXTROSE 5%-WATER - 50 ML IVPB SCH ×3 (02:28→17:21)
[2018-10-16] MEDS: ACETAMINOPHEN 325 MG TABLET (FP) PO PRN (05:15)
[2018-10-16 07:12] LABS: HEMATOCRIT 38.3 % (35.4-49); HEMOGLOBIN 12.8 GM/dL (11.7-16.9); MCHC 33.5 g/dl (32.0-35.9); MEAN CELL VOLUME 92.6 fl (80-96); MEAN PLT VOLUME 10.7 fl (7.5-11.1); PLATELET COUNT 66 K/MM3 (134-434); RBC 4.14 M/mm3 (4.00-5.60); RDW 14.2 % (11.9-15.9); WHITE BLOOD COUNT 3.2 K/mm3 (4.0-10.0)
[2018-10-16 07:36] LABS: ALBUMIN 3.3 g/dl (3.4-5.0); ALK PHOS 44 U/L (45-117); ANION GAP 12 MMOL/L (8-16); BILIRUBIN,TOTAL 1.1 mg/dL (0.2-1); BLOOD UREA NITROGEN 19 mg/dL (7-18); CHLORIDE 98 mmol/L (98-107); CO2 23 mmol/L (21-32); CREATININE 1.1 mg/dL (0.55-1.3); GLUCOSE,RANDOM 93 mg/dL (74-106); MAGNESIUM 2.1 mg/dL (1.8-2.4); POTASSIUM 3.5 mmol/L (3.5-5.1); SGOT/AST 74 U/L (15-37); SGPT/ALT 21 U/L (13-61); SODIUM 133 mmol/L (136-145); TOT PROT 5.8 g/dl (6.4-8.2)
[2018-10-16] MEDS ORDERED: PT OWN MED DRAWER 7, Y5N ONE ×4 (09:24→22:12)
--- NOTE | 2018-10-16 09:26 | PN ---
Physical Exam: SUBJECTIVE: Patient seen and examined. tells me he has not slept since secondary to persistent hiccups. OBJECTIVE: case monitor with irregular hr, pvcs rate 80-90s bilateral kidney trsplat 2001 and 2009 persistent hiccups since , will give one dose of baclophen and monitor response Vital Signs Period Temp Pulse Resp BP Sys/Ko Pulse Ox Last 24 Hr 98.4 F-101.1 F 76-91 18-20 112-144/56-77 92 GENERAL: The patient is awake, alert, and fully oriented, in no acute distress. HEAD: Normal with no signs of trauma. EYES: PERRL, extraocular movements intact, sclera anicteric, conjunctiva clear. No ptosis. ENT: Ears normal, nares patent, oropharynx clear without exudates, moist mucous membranes. NECK: Trachea midline, full range of motion, supple. LUNGS: Breath sounds equal, diminished left lower lobe. has rll pna, but rll sounds clear HEART: Regular rate and rhythm, ABDOMEN: Soft, nontender, nondistended, normoactive bowel sounds EXTREMITIES: left upper arm fistula with engored vein NEUROLOGICAL: Normal speech, gait not observed. PSYCH: Normal mood, normal affect. SKIN: Warm, dry, normal turgor, no rashes or lesions noted Laboratory Results - last 24 hr 10/15/18 10/16/18 10/16/18 06:30 05:30 05:30 WBC 3.2 L RBC 4.14 Hgb 12.8 Hct 38.3 MCV 92.6 MCH 31.0 MCHC 33.5 RDW 14.2 Plt Count 66 L MPV 10.7 Sodium 133 L 133 L Potassium 3.9 3.5 Chloride 100 98 Carbon Dioxide 23 23 Anion Gap 10 12 BUN 19 H 19 H Creatinine 1.2 1.1 Creat Clearance w eGFR 59.68 > 60 Random Glucose 91 93 Calcium 7.7 L 8.0 L Phosphorus 2.9 Magnesium 1.8 2.1 Total Bilirubin 1.1 H 1.1 H Direct Bilirubin 0.4 H AST 69 H 74 H ALT 20 21 Alkaline Phosphatase 43 L 44 L Total Protein 5.7 L 5.8 L Albumin 3.3 L 3.3 L Active Medications Generic Name Dose Route Start Last Admin Trade Name Freq PRN Reason Stop Dose Admin Acetaminophen 650 mg 10/15/18 15:44 10/16/18 05:15 Tylenol - PO 650 mg Q6H PRN Administration FEVER Aspirin 81 mg 10/15/18 10:00 10/15/18 09:45 Asa - PO 81 mg DAILY LIDIA Administration Atorvastatin Calcium 10 mg 10/14/18 22:00 10/15/18 21:23 Lipitor - PO 10 mg HS LIDIA Administration Dapsone 100 mg 10/14/18 14:30 10/15/18 09:45 Dapsone - PO 100 mg DAILY LIDIA Administration Docusate Sodium 100 mg 10/15/18 08:00 Colace - PO BID PRN CONSTIPATION Piperacillin Sod/Tazobactam 50 mls @ 100 mls/hr 10/15/18 18:00 10/16/18 02:28 Sod 3.375 gm/ Dextrose IVPB 100 mls/hr Q8H-IV LIDIA Administration Protocol Ipratropium [place] 1 amp 10/14/18 14:07 Atrovent 0.02% Nebulizer - NEB Q4H PRN WHEEZING Nifedipine 30 mg 10/15/18 10:00 10/15/18 09:45 Procardia Xl - PO 30 mg DAILY LIDIA Administration Pantoprazole Sodium 40 mg 10/15/18 10:00 10/15/18 09:46 Protonix - PO 40 mg DAILY LIDIA Administration Prednisone 5 mg 10/15/18 10:00 10/15/18 09:45 Deltasone - PO 5 mg DAILY LIDIA Administration Senna 2 tab 10/15/18 08:00 Senna - PO HS PRN CONSTIPATION Tacrolimus 2 mg 10/15/18 22:00 10/15/18 21:23 Prograf PO 2 mg BID LIDIA Administration ASSESSMENT/PLAN: Patient is a 73 year male with a significant past medical history of hypertension, hyperlipidemia, GERD, CAD (s/p SD and unknown valve replacement), and bilateral kidney transplants. He presents to the Ed with 3 days of congestion, cough and fever. imaging: chest xray with rll Pulmonary Right lower lobe pneumonia Monitor closely patient is immunocompromised 2/2 to anti rejection meds for kidney transplants. Trend fevers, vitals and labs On supplemental oxygen, maintain saturations >90% on 2-3 liters. wean off as tolerated. On Zosyn (day #2) ID following. Renal: s/p bilateral kidney replacement Has left upper arm active fistula with engorged veins renal function is improving. Renal consulted On prednisone, cellcept, dapsone renal dose medications. Card: Hypertension On procardia xl 30mg daily HLD. on asa 81mg daily lipitor 10mg @ hs fen tolerating po monitor electrolytes renal diet prophylaxis senna/colace SCDs, ambulation Visit type - Emergency Visit Emergency Visit: Yes ED Registration Date: 10/14/18 Care time: The patient presented to the Emergency Department on the above date and was hospitalized for further evaluation of their emergent condition. - New Patient This patient is new to me today: Yes Date on this admission: 10/16/18 - Critical Care Critical Care patient: No - Discharge Referral Referred to [facility] Med [facility] No
[2018-10-16] MEDS: DAPSONE 100 MG TABLET PO SCH (09:38)
[2018-10-16] MEDS: ASPIRIN 81 MG CHEWABLE TABLETS PO SCH (09:38)
[2018-10-16] MEDS: TACROLIMUS ANHYDROUS 1 MG CAPSULE PO SCH ×2 (09:39→22:10)
[2018-10-16] MEDS: predniSONE 5 MG TABLET (UD) PO SCH (09:39)
[2018-10-16] MEDS: NIFEdipine E.R. 30 MG TABLET (FP) PO SCH (09:39)
[2018-10-16] MEDS: PANTOPRAZOLE 40 MG TABLET (FP) PO SCH (09:39)
[2018-10-16] MEDS ORDERED: BACLOFEN 10 MG TABLET (FP) PO ONE (09:43)
--- NOTE | 2018-10-16 09:45 | CONSULT ---
Consult Consult Specialty:: Nephrology Referred by:: Nory Reason for Consultation:: Hx of renal transplant x2 - History of Present Illness Chief Complaint: Cough, SOB History of Present Illness: The patient is a 73 year old male, with a significant past medical history of hypertension, hyperlipidemia, GERD, CAD (s/p SD and unknown valve replacement), and kidney transplants, also history of TIA, cardiac arrest 04/14/15, received 200J shock x1 in the field, taken to [facility] where he was started on amiodarone and hypothermia protocol, DVT, ESRD s/p first renal transplant 10/24/2001 and re-transplant 01/22/2010 with good baseline transplant renal function, thrombocytopenia treated with steroids for ITP, who presents to the emergency department with, 3 days of congestion, cough and fever, and we were consulted because of hx of renal transplant. Pt is a poor historian does not know his baseline Cr or or antirejection medication. C/O of hiccups since , and cough. No hematuria, oliguria, flank pain, n/v. 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 Cardio/Vascular: Yes: Aortic Stenosis, CAD, Deep Vein Thrombosis, HTN, Hyperlipdemia, Murmur Renal/: Yes: Renal Failure, Other (s/p renal TX) - Past Surgical History Past Surgical History: Yes: AV Fistula/Graft, Kidney Transplant - Alcohol/Substance Use Hx Alcohol Use: No History of Substance Use: reports: None - Smoking History Smoking history: Never smoked Have you smoked in the past 12 months: No - Social History ADL: Independent History of Recent Travel: No Home Medications - Allergies Allergies/Adverse Reactions: Allergies Allergy/AdvReac Type Severity Reaction Status Date / Time No Known Allergies Allergy Verified 10/14/18 09:58 - Home Medications Home Medications: Ambulatory Orders Nifedipine [Nifedical Xl] 30 mg PO DAILY 08/24/16 Prednisone 5 mg PO DAILY 08/24/16 Tacrolimus [Prograf] 1 mg PO QID 08/24/16 Aspirin [ASA -] 81 mg PO DAILY 10/14/18 Atorvastatin Ca [Lipitor] 10 mg PO HS 10/14/18 Dapsone 100 mg PO DAILY 10/14/18 Mycophenolate Sodium [Mycophenolic Acid] 360 mg PO BID 10/14/18 Pantoprazole Sodium [Protonix -] 40 mg PO DAILY 10/14/18 Review of Systems - Review of Systems Constitutional: denies: Fever Cardiovascular: denies: Chest Pain Respiratory: reports: Cough Gastrointestinal: denies: Abdominal Pain, Vomiting Genitourinary: denies: Burning, Discharge, Dysuria, Flank Pain Musculoskeletal: reports: No Symptoms Neurological: denies: Change in LOC, Confusion Physical Exam Vital Signs: Vital Signs Temperature 100.3 F H 10/16/18 05:15 Pulse Rate 90 10/16/18 05:15 Respiratory Rate 10/16/18 05:15 Blood Pressure 144/77 10/16/18 05:15 O2 Sat by Pulse Oximetry (%) 92 L 10/15/18 20:28 Constitutional: Yes: Well Nourished Eyes: Yes: EOM Intact HENT: Yes: Atraumatic Neck: Yes: Supple Cardiovascular: Yes: S1, S2 Respiratory: Yes: CTA Bilaterally Gastrointestinal: Yes: Other (R transplant kidney palpable, soft, bruit present) . No: Distention Renal/: No: Anuria, Bladder Distention Edema: Yes Edema: LLE: Trace, RLE: Trace Peripheral Pulses WNL: Yes Neurological: Yes: Alert, Oriented ...Motor Strength: WNL, LUE, LLE, RUE, RLE Psychiatric: Yes: Alert, Oriented Labs: CBC, BMP 10/16/18 05:30 10/16/18 05:30 Imaging - Results Chest X-ray: Report Reviewed Assessment/Plan The patient is a 73 year old male, with a signif PMHx of HTN, HLD, GERD, CAD (s/ p SD and unknown valve replacement), and kidney transplants x2, also history of TIA, cardiac arrest 04/14/15, received 200J shock x1 in the field[facility] amiodarone and hypothermia protocol, DVT, ESRD s/p first renal transplant 10/24/2001 and re-transplant 2009 with good baseline transplant renal function, thrombocytopenia treated with steroids for ITP, who presents to the emergency department with, 3 days of congestion, cough and fever, and we were consulted because of hx of renal transplant. 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 - New Patient This patient is new to me today: Yes Date on this admission: 10/16/18 - Critical Care Critical Care patient: No
--- NOTE | 2018-10-16 17:04 | PN ---
Teaching Attending Note Name of Resident: Nancy Campos (Nephrology) ATTENDING PHYSICIAN STATEMENT I saw and evaluated the patient. I reviewed the resident's note and discussed the case with the resident. I agree with the resident's findings and plan as documented. Nephrology Pt is a 73 year old male with pmhx of CKD, kidney transplant, gerd cad, cardiac arrest and hld who presents to the ER with cough and fever. He was admited for treatments of PNA. He is awake and alert. He complains of cough but feels that it is improving. 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 His renal function is improving. I did call the transplant center. Will cont prograf and prednisone and will hold myfortic until he improves. Pt is also leukopenic. Pt is a poor historian. He denies dysuria or hematuria. He denies abdominal pain. pmhx ckd cad gerd cad cardiac arrest pshx kidney transplant nkda family hx denies soc hx neg ros cough Current Medications Generic Name Dose Route Start Last Admin Trade Name Freq PRN Reason Stop Dose Admin Acetaminophen 650 mg 10/15/18 15:44 10/16/18 05:15 Tylenol - PO 650 mg Q6H PRN Administration FEVER Aspirin 81 mg 10/15/18 10:00 10/16/18 09:38 Asa - PO 81 mg DAILY LIDIA Administration Atorvastatin Calcium 10 mg 10/14/18 22:00 10/15/18 21:23 Lipitor - PO 10 mg HS LIDIA Administration Dapsone 100 mg 10/14/18 14:30 10/16/18 09:38 Dapsone - PO 100 mg DAILY LIDIA Administration Docusate Sodium 100 mg 10/15/18 08:00 Colace - PO BID PRN CONSTIPATION Piperacillin Sod/Tazobactam 50 mls @ 100 mls/hr 10/15/18 18:00 10/16/18 09:40 Sod 3.375 gm/ Dextrose IVPB 100 mls/hr Q8H-IV LIDIA Administration Protocol Ipratropium [place] 1 amp 10/14/18 14:07 Atrovent 0.02% Nebulizer - NEB Q4H PRN WHEEZING Nifedipine 30 mg 10/15/18 10:00 10/16/18 09:39 Procardia Xl - PO 30 mg DAILY LIDIA Administration Pantoprazole Sodium 40 mg 10/15/18 10:00 10/16/18 09:39 Protonix - PO 40 mg DAILY LIDIA Administration Prednisone 5 mg 10/15/18 10:00 10/16/18 09:39 Deltasone - PO 5 mg DAILY LIDIA Administration Senna 2 tab 10/15/18 08:00 Senna - PO HS PRN CONSTIPATION Tacrolimus 2 mg 10/15/18 22:00 10/16/18 09:39 Prograf PO 2 mg BID LIDIA Administration Laboratory Tests 10/14/18 10/14/18 10/16/18 11:00 13:45 05:30 Urine Protein 2+ H Urine Blood Negative Tacrolimus Pending Influenza A (Rapid) Negative Influenza B (Rapid) Negative Last Vital Signs Temp Pulse Resp BP Pulse Ox 98.9 F 84 18 135/73 91 L 10/16/18 14:18 10/16/18 14:18 10/16/18 14:18 10/16/18 14:18 10/16/18 09:00 cardio s1s2 pulm wheeze GI soft gu graft soft and non tender ext neg edema neuro awake and alert skin neg rash Impression 1. kidney transplant 2. ckd 3. gerd 4. dev 5. PNA 6. leukopenia 7. cad 8. 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
[2018-10-16] MEDS: IPRATROPIUM BR 0.02% 0.5 MG/2.5 ML VIAL.NEB. NEB PRN ×2 (18:05→21:15)
[2018-10-16] MEDS: ATORVASTATIN CA 10 MG TABLET (FP) PO SCH (22:10)
--- NOTE | 2018-10-16 22:11 | HOSP ---
Subjective - Review of Symptoms Events since last encounter: Hospitalist Encounter Notified by primary RN, that the patient reports increased dyspnea, spo2 80's with Venturi Mask 50%. Subjective: Arrived to bedside, patient is awake, alert and oriented x2, confused to place sitting upright in bed on Venturi Mask + abdominal accessory muscles. Patient reports having difficulty breathing x 4 days, he was unable to discern if breathing is worse now. Per RN patient just completed Atrovent neb treatment PE see EMR Assessment: Patient is a 73 year male with a significant past medical history of hypertension, hyperlipidemia, GERD, CAD (s/p [place] and unknown valve replacement), and bilateral kidney transplants. He presents to the ED with 3 days of congestion, cough and fever. imaging: chest xray with RLL infiltrate Plan: Stat ABG Consider BIPAP- pending ABG results Will add Albuterol neb to medication regimen Continue current regimen Pulmonary: Yes: Dyspnea Neurological: Yes: Confusion Physical Examination Vital Signs: Vital Signs Temperature 97.8 F 10/16/18 18:00 Pulse Rate 90 10/16/18 18:00 Respiratory Rate 18 10/16/18 18:00 Blood Pressure 147/66 10/16/18 18:00 O2 Sat by Pulse Oximetry (%) 91 L 10/16/18 09:00 Constitutional: Yes: Mild Distress, Pallor Eyes: Yes: WNL, Conjunctiva Clear, EOM Intact, PERRL HENT: Yes: WNL, Atraumatic, Normocephalic Neck: Yes: WNL, Supple, Trachea Midline Cardiovascular: Yes: Pulse Irregular, S1, S2 Respiratory: Yes: Accessory Muscle Use, Diminished, On Venti-Mask, Orthopnea, SOB, SOB on Exertion Gastrointestinal: Yes: WNL, Normal Bowel Sounds, Soft Breast(s): Yes: WNL Musculoskeletal: Yes: WNL Extremities: Yes: WNL Peripheral Pulses WNL: Yes Neurological: Yes: WNL, Alert, Oriented, Cran Nerves II-XII Intact ...Motor Strength: WNL Psychiatric: Yes: WNL, Alert, Oriented (x2) Labs: CBC, BMP 10/16/18 05:30 10/16/18 05:30 Laboratory Results - last 24 hr 10/14/18 10/16/18 10/16/18 11:00 05:30 05:30 WBC 3.2 L RBC 4.14 Hgb 12.8 Hct 38.3 MCV 92.6 MCH 31.0 MCHC 33.5 RDW 14.2 Plt Count 66 L MPV 10.7 Sodium 133 L Potassium 3.5 Chloride 98 Carbon Dioxide 23 Anion Gap 12 BUN 19 H Creatinine 1.1 Creat Clearance w eGFR > 60 Random Glucose 93 Calcium 8.0 L Magnesium 2.1 Total Bilirubin 1.1 H AST 74 H ALT 21 Alkaline Phosphatase 44 L Total Protein 5.8 L Albumin 3.3 L U Random Total Protein Ur Random Sodium Ur Random Potassium Ur Random Chloride Urine Creatinine Protein/Creatinin Ratio Tacrolimus 2.1 10/16/18 10/16/18 12:50 12:50 WBC RBC Hgb Hct MCV MCH MCHC RDW Plt Count MPV Sodium Potassium Chloride Carbon Dioxide Anion Gap BUN Creatinine Creat Clearance w eGFR Random Glucose Calcium Magnesium Total Bilirubin AST ALT Alkaline Phosphatase Total Protein Albumin U Random Total Protein 51.0 H Cancelled Ur Random Sodium < 18 L Ur Random Potassium 12.8 L Ur Random Chloride < 11 L Urine Creatinine 67.0 H Cancelled Protein/Creatinin Ratio 0.760 Cancelled Tacrolimus Hospitalist Encounter Outcome: ABG-normal PH 7.35, PCO2 35, PO2 70.2, HCO3 22.9, PO2 91% Patient took off leads and Venti Mask and was found walking in the hallway Nat restraint ordered Fall precautions Patient placed on NRB Will continue to monitor
[2018-10-16] MEDS: BACLOFEN 10 MG TABLET (FP) PO SCH (22:14)
[2018-10-16 23:00] LABS: ARTERIAL BLD GAS O2 SATURATION 91.4 % (90-98.9); ARTERIAL BLOOD GAS BASE EXCESS -0.5 meq/l (-2-2); ARTERIAL BLOOD GAS PO2 70.2 mmHg (70-100); ARTERIAL BLOOD GAS pH 7.43 (7.35-7.45)
[2018-10-16 23:18] LABS: ALLENS TEST POSITIVE
[2018-10-17] MEDS: ALBUTEROL SO4 0.083% IH SOL 2.5 MG/3 ML VIAL.NEB. NEB PRN ×3 (00:07→20:29)
[2018-10-17] MEDS ORDERED: PIPERACILLIN/TAZOBACTAM 3.375 GM VIAL IVPB ONE ×2 (01:43→09:26)
[2018-10-17] MEDS ORDERED: DEXTROSE 5%-WATER - 50 ML IVPB ONE ×2 (01:44→09:26)
[2018-10-17] MEDS: PIPERACILLIN/TAZOB 3.375 GM 3.375 GM in DEXTROSE 5%-WATER - 50 ML IVPB SCH ×2 (01:49→09:40)
[2018-10-17] MEDS: ACETAMINOPHEN 325 MG TABLET (FP) PO PRN ×2 (01:49→13:20)
[2018-10-17] MEDS: BACLOFEN 10 MG TABLET (FP) PO SCH ×3 (07:02→21:07)
[2018-10-17] MEDS ORDERED: PT OWN MED DRAWER 7, Y5N ONE ×5 (07:16→21:04)
[2018-10-17 07:25] LABS: BASO % 0.4 % (0-2.0); HEMATOCRIT 38.5 % (35.4-49); HEMOGLOBIN 12.7 GM/dL (11.7-16.9); LYMPH % 13.1 % (8-40); MCH 30.8 pg (25.7-33.7); MCHC 33.1 g/dl (32.0-35.9); MEAN CELL VOLUME 93.2 fl (80-96); MEAN PLT VOLUME 11.3 fl (7.5-11.1); MONO % 7.6 % (3.8-10.2); NEUT % 78.9 % (42.8-82.8); PLATELET COUNT 83 K/MM3 (134-434); RBC 4.13 M/mm3 (4.00-5.60); RDW 14.9 % (11.9-15.9); WHITE BLOOD COUNT 3.8 K/mm3 (4.0-10.0)
[2018-10-17 08:04] LABS: ALBUMIN 3.4 g/dl (3.4-5.0); ALK PHOS 45 U/L (45-117); ANION GAP 11 MMOL/L (8-16); BILIRUBIN,TOTAL 1.2 mg/dL (0.2-1); BLOOD UREA NITROGEN 17 mg/dL (7-18); CALCIUM 7.9 mg/dL (8.5-10.1); CHLORIDE 97 mmol/L (98-107); CO2 23 mmol/L (21-32); CREATININE 1.1 mg/dL (0.55-1.3); GLUCOSE,RANDOM 99 mg/dL (74-106); POTASSIUM 3.9 mmol/L (3.5-5.1); SGOT/AST 79 U/L (15-37); SGPT/ALT 25 U/L (13-61); SODIUM 132 mmol/L (136-145)
--- NOTE | 2018-10-17 08:50 | PN ---
Physical Exam: SUBJECTIVE: Patient seen and examined at the bedside. His son is present. overnight notes reviewed, he required more oxygen to maintain sats in the 90s, now on a nrb [phone] OBJECTIVE: fevers overnight, accessory muscle use chest xray now maintain on nrb. bi pap ordered icu consulted-accepted but no beds available at [facility]. 1pm: called [facility] and discussed case with Dr. Julien who accepted patient to [facility] ICU. Vital Signs Period Temp Pulse Resp BP Sys/Ko Pulse Ox Last 24 Hr 97.8 F-100.8 F 82-101 18-20 127-147/61-84 91-93 GENERAL: The patient is awake, lethargic sitting in chair. now with nrb with sats of only 88-92%. abg normal, no c02 retention. HEAD: Normal with no signs of trauma. EYES: PERRL, extraocular movements intact, sclera anicteric, conjunctiva clear. No ptosis. ENT: Ears normal, nares patent, oropharynx clear without exudates, moist mucous membranes. NECK: Trachea midline, full range of motion, supple. LUNGS: diminished right lung, left lung diminished, clear with accessory muscle use HEART: Regular rate and rhythm, ABDOMEN: Soft, nontender, nondistended, normoactive bowel sounds EXTREMITIES: left upper arm fistula with engorged vein NEUROLOGICAL: Normal speech PSYCH: calm, cooperative, weak appearing Laboratory Results - last 24 hr 10/14/18 10/16/18 10/16/18 11:00 12:50 12:50 WBC RBC Hgb Hct MCV MCH MCHC RDW Plt Count MPV Absolute Neuts (auto) Neutrophils % Lymphocytes % Monocytes % Eosinophils % Basophils % Nucleated RBC % Anticoagulation Therapy Puncture Site ABG pH ABG pCO2 at Pt Temp ABG pO2 at Pt Temp ABG HCO3 ABG O2 Sat (Measured) ABG O2 Content ABG Base Excess Yimi Test O2 Delivery Device Oxygen Flow Rate Vent Mode Vent Rate Mechanical Rate Pressure Support Vent Sodium Potassium Chloride Carbon Dioxide Anion Gap BUN Creatinine Creat Clearance w eGFR Random Glucose Calcium Total Bilirubin AST ALT Alkaline Phosphatase Total Protein Albumin U Random Total Protein 51.0 H Cancelled Ur Random Sodium < 18 L Ur Random Potassium 12.8 L Ur Random Chloride < 11 L Urine Creatinine 67.0 H Cancelled Protein/Creatinin Ratio 0.760 Cancelled Tacrolimus 2.1 10/16/18 10/17/18 10/17/18 21:26 07:00 07:00 WBC 3.8 L RBC 4.13 Hgb 12.7 Hct 38.5 MCV 93.2 MCH 30.8 MCHC 33.1 RDW 14.9 Plt Count 83 L D MPV 11.3 H Absolute Neuts (auto) 3.0 Neutrophils % 78.9 Lymphocytes % 13.1 Monocytes % 7.6 Eosinophils % 0.0 Basophils % 0.4 Nucleated RBC % 0 Anticoagulation Therapy No Result Required. Puncture Site Right brachial ABG pH 7.43 ABG pCO2 at Pt Temp 35.0 ABG pO2 at Pt Temp 70.2 ABG HCO3 22.9 ABG O2 Sat (Measured) 91.4 ABG O2 Content 15.1 ABG Base Excess -0.5 Yimi Test Positive O2 Delivery Device Ventimask Oxygen Flow Rate 50 Vent Mode No Result Required. Vent Rate No Result Required. Mechanical Rate No Result Required. Pressure Support Vent No Result Required. Sodium 132 L Potassium 3.9 Chloride 97 L Carbon Dioxide 23 Anion Gap 11 BUN 17 Creatinine 1.1 Creat Clearance w eGFR > 60 Random Glucose 99 Calcium 7.9 L Total Bilirubin 1.2 H AST 79 H ALT 25 Alkaline Phosphatase 45 Total Protein 6.0 L Albumin 3.4 U Random Total Protein Ur Random Sodium Ur Random Potassium Ur Random Chloride Urine Creatinine Protein/Creatinin Ratio Tacrolimus Active Medications Generic Name Dose Route Start Last Admin Trade Name Freq PRN Reason Stop Dose Admin Acetaminophen 650 mg 10/15/18 15:44 10/17/18 01:49 Tylenol - PO 650 mg Q6H PRN Administration FEVER Albuterol Sulfate 1 amp 10/16/18 23:07 10/17/18 00:07 Ventolin 0.083% Nebulizer Soln - NEB 1 amp Q6H PRN Administration SHORT OF BREATH/WHEEZING Aspirin 81 mg 10/15/18 10:00 10/16/18 09:38 Asa - PO 81 mg DAILY LIDIA Administration Atorvastatin Calcium 10 mg 10/14/18 22:00 10/16/18 22:10 Lipitor - PO 10 mg HS LIDIA Administration Baclofen 10 mg 10/16/18 22:00 10/17/18 07:02 Lioresal - PO 10 mg TID LIDIA Administration Dapsone 100 mg 10/14/18 14:30 10/16/18 09:38 Dapsone - PO 100 mg DAILY LIDIA Administration Docusate Sodium 100 mg 10/15/18 08:00 Colace - PO BID PRN CONSTIPATION Piperacillin Sod/Tazobactam 50 mls @ 100 mls/hr 10/15/18 18:00 10/17/18 01:49 Sod 3.375 gm/ Dextrose IVPB 100 mls/hr Q8H-IV LIDIA Administration Protocol Ipratropium [place] 1 amp 10/14/18 14:07 10/16/18 21:15 Atrovent 0.02% Nebulizer - NEB 1 amp Q4H PRN Administration WHEEZING Nifedipine 30 mg 10/15/18 10:00 10/16/18 09:39 Procardia Xl - PO 30 mg DAILY LIDIA Administration Pantoprazole Sodium 40 mg 10/15/18 10:00 10/16/18 09:39 Protonix - PO 40 mg DAILY LIDIA Administration Prednisone 5 mg 10/15/18 10:00 10/16/18 09:39 Deltasone - PO 5 mg DAILY LIDIA Administration Senna 2 tab 10/15/18 08:00 Senna - PO HS PRN CONSTIPATION Tacrolimus 2 mg 10/15/18 22:00 10/16/18 22:10 Prograf PO 2 mg BID LIDIA Administration ASSESSMENT/PLAN: Patient is a 73 year male with a significant past medical history of hypertension, hyperlipidemia, GERD, CAD (s/p [place] and unknown valve replacement). Per cardiology his other medical history includes: non-obstructive CAD, cardiac cath 05/31/2016 at [facility] showed only D2 stenosis. 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 LVEF = 65%, normal function AV and mild MR. also history of TIA, cardiac arrest 04/14/15. His other medical history includes bilateral kidney transplants (2001 and 2009) and hx of thrombocytopenia. He presents to the ED with 3 days of congestion, cough and fever. Hospitalization complicated when patient became increasingly short of breath overnight with accessory muscle use, requiring placement of a non rebreather mask to maintain his saturations stable. However, even with the NRB, his saturations were between 88-92%. ABG were within normal limits and without c02 retention. Bipap placed to ease the work of breathing. A chest xray showed worsening right lower lobe pneumonia. He was seen by ID and his antibiotics were switched to meropenem and vancomycin from zosyn. Seen by cardiology, pulmonary and renal. Patient will be transferred to [facility] to medical ICU. He was accepted to the ICU here at [facility], however no beds available at this time. Further, his primary senior financial accountant and primary renal physician are both located at [facility]. Patient is immnocompromised 2/ 2 to bilateral kidney transplants and now with a worsening pneumonia. Currently patient is receiving his anti rejection medications, hower, myfortic on hold secondary to acute infection (pneumonia). Plan: given lasix 40mg x 1 continue bipap, may need intubation if respiratory status continues to decline Pulmonary following, recommendation appreciated Discussed with ICU resident, patient accepted. also dicussed with Dr. Poole. No icu beds available. transfer to [facility] ICU imaging: chest xray 10/17/2018 with right lower lobe worsening pneumonia Pulmonary Right lower lobe pneumonia, worse. now requiring bipap therapy. febrile overnight. seen by ID. Zosyn stopped and started on Vanco and Meropenem. Monitor closely patient is immunocompromised 2/2 to anti rejection meds for kidney transplants. Trend fevers, vitals and labs Keep on bipap ID following. Renal: s/p bilateral kidney replacement Has left upper arm active fistula with engorged veins renal function is improving and stable. Renal consulted and following, noted reviewed On prednisone, cellcept, dapsone myfortic on hold renal dose medications. Card: Hypertension On procardia xl 30mg daily HLD. on asa 81mg daily lipitor 10mg @ hs fen tolerating po monitor electrolytes renal diet prophylaxis senna/colace SCDs, ambulation Disposition: Transfer to [facility] for further management. He has been accepted to [facility] ICU by Dr. Padilla. All transfer forms filled out. Visit type - Emergency Visit Emergency Visit: Yes ED Registration Date: 10/14/18 Care time: The patient presented to the Emergency Department on the above date and was hospitalized for further evaluation of their emergent condition. - New Patient This patient is new to me today: No - Critical Care Critical Care patient: Yes Total Critical Care Time (in minutes): 60 Critical Care Statement: The care of this patient involved high complexity decision making to prevent further life threatening deterioration of the patient 's condition and/or to evaluate & treat vital organ system(s) failure or risk of failure.
[2018-10-17] MEDS: predniSONE 5 MG TABLET (UD) PO SCH (09:41)
[2018-10-17] MEDS: PANTOPRAZOLE 40 MG TABLET (FP) PO SCH (09:41)
[2018-10-17] MEDS: NIFEdipine E.R. 30 MG TABLET (FP) PO SCH (09:41)
[2018-10-17] MEDS: ASPIRIN 81 MG CHEWABLE TABLETS PO SCH (09:41)
[2018-10-17] MEDS: DAPSONE 100 MG TABLET PO SCH (09:43)
[2018-10-17] MEDS: TACROLIMUS ANHYDROUS 1 MG CAPSULE PO SCH ×2 (09:44→21:07)
[2018-10-17] MEDS: IPRATROPIUM BR 0.02% 0.5 MG/2.5 ML VIAL.NEB. NEB PRN (09:55)
--- NOTE | 2018-10-17 10:15 | PN ---
Progress Note, Physician History of Present Illness: Pt seen and examined at bedside. He had a fever last night. He also feels more short of breath today. - Current Medication List Current Medications: Active Medications Acetaminophen (Tylenol -) 650 mg PO Q6H PRN PRN Reason: FEVER Last Admin: 10/17/18 01:49 Dose: 650 mg Albuterol Sulfate (Ventolin 0.083% Nebulizer Soln -) 1 amp NEB Q6H PRN PRN Reason: SHORT OF BREATH/WHEEZING Last Admin: 10/17/18 00:07 Dose: 1 amp Aspirin (Asa -) 81 mg PO DAILY [facility] Last Admin: 10/17/18 09:41 Dose: 81 mg Atorvastatin Calcium (Lipitor -) 10 mg PO HS [facility] Last Admin: 10/16/18 22:10 Dose: 10 mg Baclofen (Lioresal -) 10 mg PO TID [facility] Last Admin: 10/17/18 07:02 Dose: 10 mg Dapsone (Dapsone -) 100 mg PO DAILY [facility] Last Admin: 10/17/18 09:43 Dose: 100 mg Docusate Sodium (Colace -) 100 mg PO BID PRN PRN Reason: CONSTIPATION Piperacillin Sod/Tazobactam (Sod 3.375 gm/ Dextrose) 50 mls @ 100 mls/hr IVPB Q8H-IV LIDIA; Protocol Last Admin: 10/17/18 09:40 Dose: 100 mls/hr Ipratropium [place] (Atrovent 0.02% Nebulizer -) 1 amp NEB Q4H PRN PRN Reason: WHEEZING Last Admin: 10/17/18 09:55 Dose: 1 amp Nifedipine (Procardia Xl -) 30 mg PO DAILY [facility] Last Admin: 10/17/18 09:41 Dose: 30 mg Pantoprazole Sodium (Protonix -) 40 mg PO DAILY [facility] Last Admin: 10/17/18 09:41 Dose: 40 mg Prednisone (Deltasone -) 5 mg PO DAILY [facility] Last Admin: 10/17/18 09:41 Dose: 5 mg Senna (Senna -) 2 tab PO HS PRN PRN Reason: CONSTIPATION Tacrolimus (Prograf) 2 mg PO BID [facility] Last Admin: 10/17/18 09:44 Dose: 2 mg - Objective Vital Signs: Vital Signs Temperature 98.1 F 10/17/18 05:53 Pulse Rate 82 10/17/18 05:53 Respiratory Rate 18 10/17/18 05:53 Blood Pressure 144/82 10/17/18 05:53 O2 Sat by Pulse Oximetry (%) 96 10/17/18 09:59 Constitutional: Yes: Mild Distress Eyes: Yes: Conjunctiva Clear Cardiovascular: Yes: S1, S2 Respiratory: Yes: On Venti-Mask, Rales Gastrointestinal: Yes: Soft Genitourinary: Yes: WNL, Other (graft soft and non tender) Musculoskeletal: Yes: WNL Edema: No Integumentary: Yes: WNL Neurological: Yes: Oriented Psychiatric: Yes: Oriented Labs: CBC, BMP 10/17/18 07:00 10/17/18 07:00 INR, PTT INR 1.04 (0.83-1.09) 10/14/18 11:00 - ....Imaging Chest X-ray: Report Reviewed Problem List - Problems (1) Elevated serum creatinine Code(s): R79.89 - OTHER SPECIFIED ABNORMAL FINDINGS OF BLOOD CHEMISTRY (2) HTN (hypertension) Code(s): I10 - ESSENTIAL (PRIMARY) HYPERTENSION (3) Renal transplant recipient Code(s): Z94.0 - KIDNEY TRANSPLANT STATUS Assessment/Plan Current Medications Generic Name Dose Route Start Last Admin Trade Name Freq PRN Reason Stop Dose Admin Acetaminophen 650 mg 10/15/18 15:44 10/17/18 01:49 Tylenol - PO 650 mg Q6H PRN Administration FEVER Albuterol Sulfate 1 amp 10/16/18 23:07 10/17/18 00:07 Ventolin 0.083% Nebulizer Soln - NEB 1 amp Q6H PRN Administration SHORT OF BREATH/WHEEZING Aspirin 81 mg 10/15/18 10:00 10/17/18 09:41 Asa - PO 81 mg DAILY LIDIA Administration Atorvastatin Calcium 10 mg 10/14/18 22:00 10/16/18 22:10 Lipitor - PO 10 mg HS LIDIA Administration Baclofen 10 mg 10/16/18 22:00 10/17/18 07:02 Lioresal - PO 10 mg TID LIDIA Administration Dapsone 100 mg 10/14/18 14:30 10/17/18 09:43 Dapsone - PO 100 mg DAILY LIDIA Administration Docusate Sodium 100 mg 10/15/18 08:00 Colace - PO BID PRN CONSTIPATION Piperacillin Sod/Tazobactam 50 mls @ 100 mls/hr 10/15/18 18:00 10/17/18 09:40 Sod 3.375 gm/ Dextrose IVPB 100 mls/hr Q8H-IV LIDIA Administration Protocol Ipratropium [place] 1 amp 10/14/18 14:07 10/17/18 09:55 Atrovent 0.02% Nebulizer - NEB 1 amp Q4H PRN Administration WHEEZING Nifedipine 30 mg 10/15/18 10:00 10/17/18 09:41 Procardia Xl - PO 30 mg DAILY LIDIA Administration Pantoprazole Sodium 40 mg 10/15/18 10:00 10/17/18 09:41 Protonix - PO 40 mg DAILY LIDIA Administration Prednisone 5 mg 10/15/18 10:00 10/17/18 09:41 Deltasone - PO 5 mg DAILY LIDIA Administration Senna 2 tab 10/15/18 08:00 Senna - PO HS PRN CONSTIPATION Tacrolimus 2 mg 10/15/18 22:00 10/17/18 09:44 Prograf PO 2 mg BID LIDIA Administration Laboratory Tests 10/14/18 10/16/18 11:00 05:30 Tacrolimus 2.1 Pending Impression 1. kidney transplant 2. ckd 3. gerd 4. dev 5. PNA 6. leukopenia 7. cad 8. hx of cardiac arrest Plan - follow repeat prograf level - myfortic on hold - cont prednisone - called renal transplant center to give update, waiting for callback - discussed with family and daughter - pulm/ICU eval - consider transfer to [facility] care center - monitor wbc - cont to monitor renal function closely Dr Hobson
--- NOTE | 2018-10-17 12:29 | PN ---
Progress Note (short form) - Note Progress Note: PULMONARY CONSULTATION DICTATED 10/17/18 IMP ACUTE HYPOXEMIC RESPIRATORY FAILURE EXTENSIVE R LUNG PNEUMONIA S/P RENAL TRANSPLANT ON IMMUNOSUPPRESIVE THERAPY ASHD S/P TX S/P AVR H/O CARDIAC ARREST + TROPONINS HTN HLD THROMBOCYTOPENIA HYPONATREMIA HICCUPS PLAN IV ABX PER ID CULTURES MEDROL INHALED BRONCHODILATORS O2 NIPPV TO HELP REDUCE WORK OF BREATHING F/U CHEST X-RAYS CHEST CT WHEN STABLE MONITOR LYTES,NA MONITOR PLT CT TREND TROPONINS ICU MONITORING DR FARAH Problem List - Problems (1) Acute hypoxemic respiratory failure Code(s): J96.01 - ACUTE RESPIRATORY FAILURE WITH HYPOXIA (2) Elevated troponin Code(s): R74.8 - ABNORMAL LEVELS OF OTHER SERUM ENZYMES (3) HTN (hypertension) Code(s): I10 - ESSENTIAL (PRIMARY) HYPERTENSION (4) Hyperlipidemia Code(s): E78.5 - HYPERLIPIDEMIA, UNSPECIFIED (5) Pneumonia Code(s): J18.9 - PNEUMONIA, UNSPECIFIED ORGANISM (6) Renal transplant recipient Code(s): Z94.0 - KIDNEY TRANSPLANT STATUS (7) Right lower lobe pneumonia Code(s): J18.1 - LOBAR PNEUMONIA, UNSPECIFIED ORGANISM (8) Intractable hiccups Code(s): R06.6 - HICCOUGH (9) Aortic valve replaced Code(s): Z95.2 - PRESENCE OF PROSTHETIC HEART VALVE (10) ASHD (arteriosclerotic heart disease) Code(s): I25.10 - ATHSCL HEART DISEASE OF [place] CORONARY ARTERY W/O ANG PCTRS
--- NOTE | 2018-10-17 12:35 | PN ---
Progress Note, Physician Chief Complaint: Shortness of breath - Current Medication List Current Medications: Active Medications Acetaminophen (Tylenol -) 650 mg PO Q6H PRN PRN Reason: FEVER Last Admin: 10/17/18 01:49 Dose: 650 mg Albuterol Sulfate (Ventolin 0.083% Nebulizer Soln -) 1 amp NEB Q6H PRN PRN Reason: SHORT OF BREATH/WHEEZING Last Admin: 10/17/18 11:55 Dose: 1 amp Aspirin (Asa -) 81 mg PO DAILY [facility] Last Admin: 10/17/18 09:41 Dose: 81 mg Atorvastatin Calcium (Lipitor -) 10 mg PO HS [facility] Last Admin: 10/16/18 22:10 Dose: 10 mg Baclofen (Lioresal -) 10 mg PO TID [facility] Last Admin: 10/17/18 07:02 Dose: 10 mg Dapsone (Dapsone -) 100 mg PO DAILY [facility] Last Admin: 10/17/18 09:43 Dose: 100 mg Docusate Sodium (Colace -) 100 mg PO BID PRN PRN Reason: CONSTIPATION Piperacillin Sod/Tazobactam (Sod 3.375 gm/ Dextrose) 50 mls @ 100 mls/hr IVPB Q8H-IV LIDIA; Protocol Last Admin: 10/17/18 09:40 Dose: 100 mls/hr Ipratropium [place] (Atrovent 0.02% Nebulizer -) 1 amp NEB Q4H PRN PRN Reason: WHEEZING Last Admin: 10/17/18 09:55 Dose: 1 amp Nifedipine (Procardia Xl -) 30 mg PO DAILY [facility] Last Admin: 10/17/18 09:41 Dose: 30 mg Pantoprazole Sodium (Protonix -) 40 mg PO DAILY [facility] Last Admin: 10/17/18 09:41 Dose: 40 mg Prednisone (Deltasone -) 5 mg PO DAILY [facility] Last Admin: 10/17/18 09:41 Dose: 5 mg Senna (Senna -) 2 tab PO HS PRN PRN Reason: CONSTIPATION Tacrolimus (Prograf) 2 mg PO BID [facility] Last Admin: 10/17/18 09:44 Dose: 2 mg - Objective Vital Signs: Vital Signs Temperature 99.8 F H 10/17/18 10:00 Pulse Rate 95 H 10/17/18 10:00 Respiratory Rate 20 10/17/18 10:00 Blood Pressure 138/64 10/17/18 10:00 O2 Sat by Pulse Oximetry (%) 92 L 10/17/18 11:56 Constitutional: Yes: Well Nourished, Mild Distress Eyes: Yes: WNL, Conjunctiva Clear, EOM Intact HENT: Yes: WNL Neck: Yes: WNL, Supple, Trachea Midline Cardiovascular: Yes: WNL, Regular Rate and Rhythm, S1, S2 Respiratory: Yes: Accessory Muscle Use, Cough, On BiPap, Rhonchi, SOB Gastrointestinal: Yes: WNL, Normal Bowel Sounds, Soft ...Rectal Exam: Yes: Deferred Genitourinary: Yes: WNL Breast(s): Yes: WNL Musculoskeletal: Yes: WNL Extremities: Yes: WNL Edema: LLE: Trace, RLE: Trace Peripheral Pulses: Left Radial: 2+, Right Radial: 2+, Left Doralis Pedis: 2+, Right Dorsalis Pedis: 2+, Left Femoral: 2+, Right Femoral: 2+ Integumentary: Yes: WNL Neurological: Yes: WNL, Alert, Oriented ...Motor Strength: WNL Psychiatric: Yes: WNL Labs: CBC, BMP 10/17/18 07:00 10/17/18 07:00 INR, PTT INR 1.04 (0.83-1.09) 10/14/18 11:00 Assessment/Plan 73 year-old with a PMHx hypertension, non-obstructive CAD, cardiac cath 2015 at [facility] showed only D2 stenosis. 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 LVEF = 65%, normal function AV and mild MR. also history of TIA, cardiac arrest 04/14/15, received 200J shock x1 in the field, [facility] and hypothermia protocol, DVT , ESRD s/p first renal transplant 10/24/2001 amd re-transplant 01/22/2010 with good baseline transplant renal function, thrombocytopenia treated with steroids for ITP. Now admitted 10/14/2018 with 4 days of fever, productive cough, hiccups, and watery diarrhea. He was found to have RLL pneumonia. Mildly elevated troponin noted. The patient's respiratory status is somewhat worse today. He denies chest pains nor any other associated symptoms. Would give Lasix 40 mg IV, once. May repeat if symptoms do not improve. Continue BiPAP and antibiotics as currently. Would strongly consider a consultation with a card processing clerk. Cardiac stable at this point. No important events on telemetry at this point.
[2018-10-17] MEDS ORDERED: methylPREDNISolone NA SUCC 40 MG/1 ML VIAL IVPUSH SCH (12:45)
--- NOTE | 2018-10-17 13:01 | PN ---
Progress Note, Physician History of Present Illness: Breathing more labored today CXR worsening R infiltrate OOB in chair tachypneic on Bipap Low grade temp Leukopenic WBC 3.8 ANC 3.0 BC (-) Sputum c/s normal fransisca legionella/ pneumococcal ag (-) - Current Medication List Current Medications: Active Medications Acetaminophen (Tylenol -) 650 mg PO Q6H PRN PRN Reason: FEVER Last Admin: 10/17/18 01:49 Dose: 650 mg Albuterol Sulfate (Ventolin 0.083% Nebulizer Soln -) 1 amp NEB Q6H PRN PRN Reason: SHORT OF BREATH/WHEEZING Last Admin: 10/17/18 11:55 Dose: 1 amp Aspirin (Asa -) 81 mg PO DAILY [facility] Last Admin: 10/17/18 09:41 Dose: 81 mg Atorvastatin Calcium (Lipitor -) 10 mg PO HS [facility] Last Admin: 10/16/18 22:10 Dose: 10 mg Baclofen (Lioresal -) 10 mg PO TID [facility] Last Admin: 10/17/18 07:02 Dose: 10 mg Dapsone (Dapsone -) 100 mg PO DAILY [facility] Last Admin: 10/17/18 09:43 Dose: 100 mg Docusate Sodium (Colace -) 100 mg PO BID PRN PRN Reason: CONSTIPATION Piperacillin Sod/Tazobactam (Sod 3.375 gm/ Dextrose) 50 mls @ 100 mls/hr IVPB Q8H-IV [facility]; Protocol Last Admin: 10/17/18 09:40 Dose: 100 mls/hr Ipratropium [place] (Atrovent 0.02% Nebulizer -) 1 amp NEB Q4H PRN PRN Reason: WHEEZING Last Admin: 10/17/18 09:55 Dose: 1 amp Methylprednisolone Sodium Succinate (Solu-Medrol -) 60 mg IVPUSH DAILY [facility] Last Admin: 10/17/18 12:53 Dose: 60 mg Nifedipine (Procardia Xl -) 30 mg PO DAILY [facility] Last Admin: 10/17/18 09:41 Dose: 30 mg Pantoprazole Sodium (Protonix -) 40 mg PO DAILY [facility] Last Admin: 10/17/18 09:41 Dose: 40 mg Prednisone (Deltasone -) 5 mg PO DAILY [facility] Last Admin: 10/17/18 09:41 Dose: 5 mg Senna (Senna -) 2 tab PO HS PRN PRN Reason: CONSTIPATION Tacrolimus (Prograf) 2 mg PO BID [facility] Last Admin: 10/17/18 09:44 Dose: 2 mg - Objective Vital Signs: Vital Signs Temperature 99.8 F H 10/17/18 10:00 Pulse Rate 95 H 10/17/18 10:00 Respiratory Rate 10/17/18 10:00 Blood Pressure 138/64 10/17/18 10:00 O2 Sat by Pulse Oximetry (%) 92 L 10/17/18 11:56 Constitutional: Yes: Mild Distress Eyes: Yes: Conjunctiva Clear Cardiovascular: Yes: Regular Rate and Rhythm, S1, S2 Respiratory: Yes: Other (+ crepitations at bases) Gastrointestinal: Yes: Normal Bowel Sounds, Soft. No: Tenderness Edema: Yes Edema: LLE: 1+, RLE: 1+ Labs: CBC, BMP 10/17/18 07:00 10/17/18 07:00 INR, PTT INR 1.04 (0.83-1.09) 10/14/18 11:00 Assessment/Plan R pneumonia S/P renal transplant S/P TAVR Leukopenia In light of worsening resp status and CXR will broden coverage IV meropenem/ vancomycin Pt on PCP prophylaxis Transfer to transplant center Discussed with pulmonary
[2018-10-17] MEDS ORDERED: FUROSEMIDE 40 MG/4 ML INJECTABLE VIAL IVPUSH ONE (13:15)
--- NOTE | 2018-10-17 13:16 | EKG ---
Test Reason : Blood Pressure : / mmHG Vent. Rate : 096 BPM Atrial Rate : 096 BPM P-R Int : 180 ms QRS Dur : 110 ms QT Int : 356 ms P-R-T Axes : 046 -26 049 degrees QTc Int : 449 ms SINUS RHYTHM WITH OCCASIONAL PREMATURE VENTRICULAR COMPLEXES AND PREMATURE ATRIAL COMPLEXES OTHERWISE NORMAL ECG WHEN COMPARED WITH ECG OF 14-OCT-2018 11:08, PREMATURE ATRIAL COMPLEXES ARE NOW PRESENT QT HAS LENGTHENED PATIENT SITTING IN CHAIR DURING EKG Confirmed by LINDSEY ALMARAZ MD ([id number]) on 10/17/2018 1:16:33 PM Referred By: Tata BEJARANO Confirmed By:LINDSEY ALMARAZ MD
--- NOTE | 2018-10-17 13:17 | CONS ---
DATE OF CONSULTATION: 10/17/2018 REFERRING PHYSICIAN: Allie Cueto NP HISTORY: The patient is a 73-year-old male, past medical history of bilateral renal transplant on immunosuppressive therapy of tacrolimus, mycophenolate, and prednisone; ASHD status post GA, status post aortic valve replacement in 2004, hypertension, hyperlipidemia, nonsmoker, admitted to [facility] with the complaint of 4-day history of fevers, cough productive of yellow sputum, hiccups, and watery diarrhea. Patient states that he started developing symptoms approximately 3 days prior to admission. He was apparently cleaning out his back yard of some construction material and was exposed to bat droppings, rat droppings, and chemicals. He also states that his has been ill at home with flu-like symptoms. He started developing increasing shortness of breath, cough, and chest congestion. He denied any nausea, vomiting, or diaphoresis. He did have diarrhea. He presented to the emergency room with the above. In the ER he was noted to have small right lower lobe infiltrate. He was started on broad-spectrum antibiotics per infectious disease. Yesterday he started developing increasing respiratory distress and became progressively hypoxemic requiring first 50% O2 Ventimask and then subsequently placed on BiPAP with some improvement. Followup chest x-ray reveals worsening right-sided pneumonia. He is unsure whether received a flu shot this year. There is no history of recent travel. He is retired. He was born in [place], moved to the [facility] approximately 50 years ago. 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 He denies any history of COPD or asthma in the past. complaining of hiccups for approximately a week. PAST MEDICAL HISTORY: Again includes renal transplants on immunosuppressive therapy, tacrolimus, mycophenolate, and prednisone. ASHD status post GA, status post aortic valve replacement. Hypertension, hyperlipidemia. REVIEW OF SYSTEMS: Positive shortness of breath, positive cough, positive chest congestion, positive hiccups, positive fever, chills. No nausea, no vomiting. Positive diarrhea. CURRENT MEDICATIONS: Include Tylenol, piperacillin, prednisone 5, senna, Atrovent, , Lipitor, Prograf, aspirin, Protonix, and dapsone. PHYSICAL EXAMINATION: General: The patient is a well-developed, well-nourished male, awake, alert, dyspneic and tachypneic on nasal O2. O2 saturation is 83%. Vital Signs: Temperature is 99.8, blood pressure 138/64, respiratory rate is 20. HEENT: Exam is normocephalic, atraumatic. Neck: Supple. Heart: Regular, S1, S2. Chest: Diffuse crackles on the right. Abdomen: Soft. Bowel sounds are positive. Extremities: No cyanosis or edema. LABORATORY: WBC is 3.8, hemoglobin 12.7, hematocrit 38.5, with a platelet count of 83,000. INR is 1.04. Blood gas: pH of 7.43, PCO2 of 35, a PO2 of 70, bicarbonate of 22, and saturating 91.4 on 50% Ventimask. Sodium is 132, BUN 17, creatinine 1.1. ALT is 79, troponin 0.16. Chest x-ray: Progressive right-sided infiltrate. IMPRESSION: Acute hypoxemic respiratory failure secondary to: 1. Right-sided pneumonia. 2. Positive troponins, likely demand ischemia. 3. Status post renal transplants on immunosuppressive therapy. 4. 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 5. Status post aortic valve replacement. 6. Hypertension. 7. Hiccups. 8. Hyponatremia. PLAN: IV antibiotics, supplemental O2, BiPAP, Medrol, and cultures. Also transfer to ICU for further close monitoring of respiratory status. Obtain followup chest x-ray as well as CT scan of the chest when clinically stable. Also trend troponins, monitor electrolytes. Monitor sodium level. [address] LANE/[id number]
[2018-10-17] MEDS ORDERED: FUROSEMIDE 40 MG/4 ML INJECTABLE VIAL ONE (13:18)
[2018-10-17] MEDS ORDERED: VANCOMYCIN 1 GRAM (PRE-DOCKED) 1,000 MG/250 ML BAG IVPB SCH (13:30)
--- NOTE | 2018-10-17 15:02 | ECHO ---
Name: GRAY YORKIO Exam:Adult Echocardiogram Study Date: 10/17/2018 01:50 PM Age: 73 yrs Reason For Study: SOB Height: 65 in Weight: 161 lb BSA: 1.8 m2 MMode/2D Measurements & Calculations IVSd: 1.2 cm Ao root diam: 3.2 cm LVIDd: 5.5 cm LA dimension: 4.5 cm LVIDs: 4.1 cm LVPWd: 1.2 cm EDV(Teich): 150.1 ml ESV(Teich): 73.1 ml Doppler Measurements & Calculations MV E max roman: 99.3 cm/sec Ao V2 max: 325.8 cm/sec MV A max roman: 132.7 cm/sec Ao max P.5 mmHg MV E/A: 0.75 AI P1/2t: 359.1 msec MV dec time: 0.27 sec AI max roman: 379.0 cm/sec LV V1 max P.0 mmHg AI max P.5 mmHg LV V1 max: 100.3 cm/sec AI dec slope: 309.1 cm/sec2 MR max roman: 393.1 cm/sec TR max roman: 257.0 cm/sec MR max P.8 mmHg TR max P.5 mmHg Med Peak E' Roman: 5.9 cm/sec Med E/e': 16.8 Lat Peak E' Roman: 3.9 cm/sec Lat E/e': 25.2 Procedure A two-dimensional transthoracic echocardiogram with color flow and Doppler was performed. The study w as technically difficult with many images being suboptimal in quality. Left Ventricle The left ventricular size, thickness and function are normal. The left ventricular ejection fraction is normal. E/A reversal consistent with but not diagnostic of poor LV compliance. The left ventricular w all motion is normal. Right Ventricle The right ventricle is normal in size and function. Atria The left atrium is moderately dilated. The right atrium is moderately dilated. Mitral Valve There is mild mitral valve thickening. The mitral valve is not well visualized. cannot r/o significan t mitral stenosis. There is trace mitral regurgitation. Tricuspid Valve There is mild tricuspid valve thickening. There is no tricuspid stenosis. There is mild tricuspid regurgitation. Right ventricular systolic pressure is elevated at 30-40mmHg. Aortic Valve The aortic valve is not well visualized. Hemodynamically significant valvular aortic stenosis cannot be excluded. Mild to moderate aortic regurgitation. Pulmonic Valve The pulmonic valve is not well visualized. Great Vessels The aortic root is normal size. Pericardium/Pleura There is no pericardial effusion. Interpretation Summary The left ventricular size, thickness and function are normal The left ventricular ejection fraction is normal. The left ventricular wall motion is normal. The left atrium is moderately dilated. The right atrium is moderately dilated. There is mild tricuspid regurgitation. Right ventricular systolic pressure is elevated at 30-40mmHg. Mild to moderate aortic regurgitation. Hemodynamically significant valvular aortic stenosis cannot be excluded. The study was technically difficult with many images being suboptimal in quality. The mitral valve is not well visualized. cannot r/o significant mitral stenosis There is trace mitral regurgitation. E/A reversal consistent with but not diagnostic of poor LV compliance MD Eriberto Davis 10/17/2018 03:01 PM
[2018-10-17] MEDS: MEROPENEM 1 GM in DEXTROSE 5%-WATER 100 ML IVPB SCH ×2 (15:38→18:02)
--- NOTE | 2018-10-17 18:33 | DS ---
Physical Exam: SUBJECTIVE: Patient seen and examined Patient seen and examined at the bedside. His son is present. overnight notes reviewed, he required more oxygen to maintain sats in the 90s, now on a nrb OBJECTIVE: fevers overnight, accessory muscle use chest xray now maintain on nrb. bi pap ordered icu consulted-accepted but no beds available at [facility]. 1pm: called [facility] and discussed case with Dr. Julien who accepted patient to [facility] ICU. Vital Signs Period Temp Pulse Resp BP Sys/Ko Pulse Ox Last 24 Hr 98.1 F-100.8 F 82-101 18-29 127-144/64-84 90-96 PHYSICAL EXAM GENERAL: The patient is awake, lethargic sitting in chair. now with nrb with sats of only 88-92%. abg normal, no c02 retention. HEAD: Normal with no signs of trauma. EYES: PERRL, extraocular movements intact, sclera anicteric, conjunctiva clear. No ptosis. ENT: Ears normal, nares patent, oropharynx clear without exudates, moist mucous membranes. NECK: Trachea midline, full range of motion, supple. LUNGS: diminished right lung, left lung diminished, clear with accessory muscle use HEART: Regular rate and rhythm, ABDOMEN: Soft, nontender, nondistended, normoactive bowel sounds EXTREMITIES: left upper arm fistula with engorged vein NEUROLOGICAL: Normal speech PSYCH: calm, cooperative, weak appearing LABS Laboratory Results - last 24 hr 10/16/18 10/16/18 10/17/18 12:50 21:26 07:00 WBC 3.8 L RBC 4.13 Hgb 12.7 Hct 38.5 MCV 93.2 MCH 30.8 MCHC 33.1 RDW 14.9 Plt Count 83 L D MPV 11.3 H Absolute Neuts (auto) 3.0 Neutrophils % 78.9 Lymphocytes % 13.1 Monocytes % 7.6 Eosinophils % 0.0 Basophils % 0.4 Nucleated RBC % 0 Anticoagulation Therapy No Result Required. Puncture Site Right brachial ABG pH 7.43 ABG pCO2 at Pt Temp 35.0 ABG pO2 at Pt Temp 70.2 ABG HCO3 22.9 ABG O2 Sat (Measured) 91.4 ABG O2 Content 15.1 ABG Base Excess -0.5 Yimi Test Positive O2 Delivery Device Ventimask Oxygen Flow Rate 50 Vent Mode No Result Required. Vent Rate No Result Required. Mechanical Rate No Result Required. Pressure Support Vent No Result Required. Sodium Potassium Chloride Carbon Dioxide Anion Gap BUN Creatinine Creat Clearance w eGFR Random Glucose Calcium Total Bilirubin AST ALT Alkaline Phosphatase Troponin I Total Protein Albumin Ur Random Potassium 12.8 L 10/17/18 07:00 WBC RBC Hgb Hct MCV MCH MCHC RDW Plt Count MPV Absolute Neuts (auto) Neutrophils % Lymphocytes % Monocytes % Eosinophils % Basophils % Nucleated RBC % Anticoagulation Therapy Puncture Site ABG pH ABG pCO2 at Pt Temp ABG pO2 at Pt Temp ABG HCO3 ABG O2 Sat (Measured) ABG O2 Content ABG Base Excess Yimi Test O2 Delivery Device Oxygen Flow Rate Vent Mode Vent Rate Mechanical Rate Pressure Support Vent Sodium 132 L Potassium 3.9 Chloride 97 L Carbon Dioxide 23 Anion Gap 11 BUN 17 Creatinine 1.1 Creat Clearance w eGFR > 60 Random Glucose 99 Calcium 7.9 L Total Bilirubin 1.2 H AST 79 H ALT 25 Alkaline Phosphatase 45 Troponin I 0.16 H Total Protein 6.0 L Albumin 3.4 Ur Random Potassium HOSPITAL COURSE: Date of Admission:10/14/18 Date of Discharge: 10/17/18 Patient is a 73 year male with a significant past medical history of hypertension, hyperlipidemia, GERD, CAD (s/p IL and unknown valve replacement). Per cardiology his other medical history includes: non-obstructive CAD, cardiac cath 05/31/2016 at [facility] showed only D2 stenosis. 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 LVEF = 65%, normal function AV and mild MR. also history of TIA, cardiac arrest 04/14/15. His other medical history includes bilateral kidney transplants (2001 and 2009) and hx of thrombocytopenia. He presents to the ED with 3 days of congestion, cough and fever. Hospitalization complicated when patient became increasingly short of breath overnight with accessory muscle use, requiring placement of a non rebreather mask to maintain his saturations stable. However, even with the NRB, his saturations were between 88-92%. ABG were within normal limits and without c02 retention. Bipap placed to ease the work of breathing. A chest xray showed worsening right lower lobe pneumonia. He was seen by ID and his antibiotics were switched to meropenem and vancomycin from zosyn. Seen by cardiology, pulmonary and renal. Patient will be transferred to [facility] to medical ICU. He was accepted to the ICU here at [facility], however no beds available at this time. Further, his primary turbine mechanic and primary renal physician are both located at [facility]. Patient is immnocompromised 2/ 2 to bilateral kidney transplants and now with a worsening pneumonia. Currently patient is receiving his anti rejection medications, hower, myfortic on hold secondary to acute infection (pneumonia). Plan: given lasix 40mg x 1 continue bipap, may need intubation if respiratory status continues to decline Pulmonary following, recommendation appreciated Discussed with ICU resident, patient accepted. also dicussed with Dr. Poole. No icu beds available. transfer to [facility] ICU imaging: chest xray 10/17/2018 with right lower lobe worsening pneumonia Pulmonary Right lower lobe pneumonia, worse. now requiring bipap therapy. febrile overnight. seen by ID. Zosyn stopped and started on Vanco and Meropenem. Monitor closely patient is immunocompromised 2/2 to anti rejection meds for kidney transplants. Trend fevers, vitals and labs Keep on bipap ID following. Renal: s/p bilateral kidney replacement Has left upper arm active fistula with engorged veins renal function is improving and stable. Renal consulted and following, noted reviewed On prednisone, cellcept, dapsone myfortic on hold renal dose medications. Card: Hypertension On procardia xl 30mg daily HLD. on asa 81mg daily lipitor 10mg @ hs fen tolerating po monitor electrolytes renal diet prophylaxis senna/colace SCDs, ambulation Disposition: Transfer to [facility] for further management. He has been accepted to [facility] ICU by Dr. Padilla. All transfer forms filled out. Minutes to complete discharge: 60 Discharge Summary Reason For Visit: HGIH SERUM CREATINE,ELEV TROPO LEVEL,PNEUMONIA Current Active Problems ASHD (arteriosclerotic heart disease) (Acute) Acute hypoxemic respiratory failure (Acute) Aortic valve replaced (Acute) Elevated serum creatinine (Acute) Elevated troponin (Acute) HTN (hypertension) (Acute) Hyperlipidemia (Acute) Intractable hiccups (Acute) Pneumonia (Acute) Prophylactic measure (Acute) Renal transplant recipient (Acute) Right lower lobe pneumonia (Acute) Condition: Critical - Instructions Diet, Activity, Other Instructions: TRANSFER TO [facility] ICU Disposition: TRANSFER ACUTE CARE/OTHER HOSP - Home Medications Comprehensive Discharge Medication List: Ambulatory Orders Nifedipine [Nifedical Xl] 30 mg PO DAILY 08/24/16 Prednisone 5 mg PO DAILY 08/24/16 Tacrolimus [Prograf] 1 mg PO QID 08/24/16 Aspirin [ASA -] 81 mg PO DAILY 10/14/18 Atorvastatin Ca [Lipitor] 10 mg PO HS 10/14/18 Dapsone 100 mg PO DAILY 10/14/18 Mycophenolate Sodium [Mycophenolic Acid] 360 mg PO BID 10/14/18 Pantoprazole Sodium [Protonix -] 40 mg PO DAILY 10/14/18 Prednisone 5 mg PO DAILY 10/16/18 This patient is new to me today: No Emergency Visit: Yes ED Registration Date: 10/14/18 Care time: The patient presented to the Emergency Department on the above date and was hospitalized for further evaluation of their emergent condition. Critical Care patient: Yes Total Critical Care Time (in minutes): 60 Critical Care Statement: The care of this patient involved high complexity decision making to prevent further life threatening deterioration of the patient 's condition and/or to evaluate & treat vital organ system(s) failure or risk of failure. - Discharge Referral Referred to [facility] Med P.[facility].: No
[2018-10-17 20:25] VITALS: BP 128/73; PULSE 79; TEMP 97.8
[2018-10-17] MEDS: ATORVASTATIN CA 10 MG TABLET (FP) PO SCH (21:07)
[2018-10-17] MEDS ORDERED: MUPIROCIN 2% TOPICAL OINTMENT FOR DECOLONIZATION NS SCH (22:00)
[2018-10-17] MEDS ORDERED: CHLORHEXIDINE GLUCONATE 4% CLEANSER FOR DECOLONIZATION TP SCH (22:00)
== END 2018-10-17 22:00 | disposition short-term general hospital (02) | DRG 193 ==
LOC: JER 09:51 → JERBED 12:32 → J4S 10-15 00:08
PROVIDERS: ADMIT Internal Medicine; ATTEND Nurse Practitioner Family
DX: J18.9 Pneumonia, unspecified organism (principal); J96.01 Acute respiratory failure with hypoxia; Z94.0 Kidney transplant status; E87.1 Hypo-osmolality and hyponatremia; I25.10 Atherosclerotic heart disease of native coronary artery without angina pectoris; I25.2 Old myocardial infarction; I10 Essential (primary) hypertension; E78.5 Hyperlipidemia, unspecified; Z95.2 Presence of prosthetic heart valve; M81.0 Age-related osteoporosis without current pathological fracture; K21.9 Gastro-esophageal reflux disease without esophagitis; Z86.74 Personal history of sudden cardiac arrest; R06.6 Hiccough; D69.6 Thrombocytopenia, unspecified; D72.819 Decreased white blood cell count, unspecified
CPT/HCPCS: 36415; 36600; 71045-TC-FY; 80053; 80076; 80197; 81003; 81015; 82436; 82550; 82553; 82570; 82803; 83605; 83735; 84100; 84133; 84156; 84300; 84484; 85025; 85027; 85610; 85730; 87040; 87070; 87086; 87205; 87804; 87899; 93005; 93010; 93306-TC; 94640; 97116-GP; 97161-GP; 99285-25; J0131; J0475

== ENCOUNTER 2019-04-11 15:00 | Inpatient (IN) | payer OTHER, MEDICARE ==
--- NOTE | 2019-04-11 15:12 | PDOC ---
Rapid Medical Evaluation Chief Complaint: Cold Symptoms Time Seen by Provider: 04/11/19 15:09 Medical Evaluation: Allergies Allergy/AdvReac Type Severity Reaction Status Date / Time No Known Allergies Allergy Verified 10/14/18 09:58 04/11/19 15:10 I have performed a brief in-person evaluation of this patient. The patient presents with a chief complaint of: ? UTI, fevers, + hematuria- post kidney transplant 2009 Pertinent physical exam findings: pale, mild abd pain I have ordered the following: UA/ UcG The patient will proceed to the ED for further evaluation. Discharge Disposition - Diagnosis Fever - Referrals - Patient Instructions - Post Discharge Activity
[2019-04-11 15:13] VITALS: BMI 26.9
[2019-04-11 15:48] LABS: HYALINE CASTS 27 /lpf (0-8); URINE APPEARANCE TURBID; URINE BACTERIA 4345.9 /hpf (NEGATIVE); URINE BILIRUBIN 1+ (NEGATIVE); URINE COLOR ORANGE; URINE GLUCOSE (UA) NEGATIVE (NEGATIVE); URINE KETONE TRACE (NEGATIVE); URINE LEUK ESTERASE 3+ (NEGATIVE); URINE NITRITE POSITIVE (NEGATIVE); URINE PROTEIN 2+ (NEGATIVE); URINE RBC 8 /hpf (0-4); URINE WBC 520 /hpf (0-5)
[2019-04-11] MEDS ORDERED: SODIUM CHLORIDE 2,204 ML IV ONE (17:17)
--- NOTE | 2019-04-11 17:19 | PDOC ---
History of Present Illness - General Chief Complaint: Urinary Problem Stated Complaint: FEVER/ BLOOD IN THE URINE Time Seen by Provider: 04/11/19 15:09 - History of Present Illness Initial Comments: 04/11/19 17:12 CHIEF COMPLAINT: urinary problem HISTORY OF PRESENT ILLNESS: 74 yo M with hx of cardiac arrest (2015), heart valve replacement (2016), b/l kidney transplants, and stroke "years ago" ago presents to ED with weakness,burning with urination, chills, and fever, since yesterday. Patient reports the symptoms have improved but he still has intermittment burning on urination. Patient denies current nausea but states he did have it yesterday and earlier today. Denies vomiting but reports 3-4 episodes of twice this morning. Patient's daughter reports that his transplant doctor Dr. Schuster at 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 No recent travel or sick contacts. PAST MEDICAL HISTORY: as per HPI FAMILY HISTORY: Denies SOCIAL HISTORY: Denies tobacco, alcohol, illicit drug use. SURGICAL HISTORY: valve replacement, kidney transplants ALLERGIES: No known drug allergies REVIEW OF SYSTEMS General/Constitutional: Fever, chills, weakness, x 2 days. HEENT: Denies change in vision. Denies ear pain or discharge. Denies sore throat. Cardiovascular: Denies chest pain or shortness of breath. Respiratory: Denies cough, wheezing, or hemoptysis. Gastrointestinal: Denies nausea, vomiting, diarrhea or constipation. Denies rectal bleeding. Genitourinary: Dysuria, hematuria x 2 days. Denies frequency, or change in urination. Musculoskeletal: Denies joint or muscle swelling or pain. Denies neck or back pain. Skin and breasts: Denies rash or easy bruising. Neurologic: Denies headache, vertigo, loss of consciousness, or loss of sensation. PHYSICAL EXAM General Appearance: Well-appearing, appropriately dressed. No apparent distress. HEENT: EOMI, PERRLA, normal ENT inspection, normal voice, TMs normal, pharynx normal. No conjunctival pallor. No photophobia, scleral icterus. Neck: Supple. Trachea midline. No tenderness, rigidity, carotid bruit, stridor , lymphadenopathy, or thyromegaly. Respiratory/Chest: Lungs CTAB. No shortness of breath, chest tenderness, respiratory distress, accessory muscle use. No crackles, rales, rhonchi, stridor , wheezing, dullness Cardiovascular: RRR. S1, S2. No JVD, murmur, bradycardia, tachycardia. Vascular Pulses: Dorsalis-Pedis (R): 2+, Dorsalis-Pedis (L): 2+ Gastrointestinal/Abdominal: Normal bowel sounds. Abdomen soft, non-distended. No tenderness or rebound tenderness. No organomegaly, pulsatile mass, guarding , hernia, hepatomegaly, splenomegaly. Lymphatic: No adenopathy, tenderness. Musculoskeletal/Extremities: Normal inspection. FROM of all extremities, normal capillary refill. Pelvis Stable. No CVA tenderness. No tenderness to extremities, pedal edema, swelling, erythema or deformity. Integumentary: Appropriate color, dry, warm. 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 Fully oriented, alert. Appropriate mood/affect. Motor strength 5/5. No appreciable EOM palsy, facial droop or sensory deficit. 04/13/19 01:00 Past History - Past Medical History Allergies/Adverse Reactions: Allergies Allergy/AdvReac Type Severity Reaction Status Date / Time No Known Allergies Allergy Verified 04/11/19 15:14 Home Medications: Ambulatory Orders Nifedipine [Nifedical Xl] 30 mg PO BID 08/24/16 Prednisone 5 mg PO DAILY 08/24/16 Tacrolimus [Prograf] 3 mg PO BID 08/24/16 Aspirin [ASA -] 81 mg PO DAILY 10/14/18 Atorvastatin Ca [Lipitor] 10 mg PO HS 10/14/18 Dapsone 100 mg PO DAILY 10/14/18 Mycophenolate Sodium [Mycophenolic Acid] 360 mg PO BID 10/14/18 Pantoprazole Sodium [Protonix -] 40 mg PO DAILY 10/14/18 Prednisone 5 mg PO DAILY 10/16/18 Ergocalciferol (Vitamin D2) [Vitamin D2] 50,000 unit PO Q7D 04/12/19 Anemia: No Asthma: No Cancer: No Cardiac Disorders: Yes (CAD, [place], CARDIAC CATH 2015; VALVE REPLA) CVA: Yes (stroke 2006) COPD: No CHF: No Dementia: No Diabetes: No GI Disorders: No Disorders: No HTN: Yes Hypercholesterolemia: No Liver Disease: No Seizures: No Thyroid Disease: No Other medical history: b/l kidney transplant - Surgical History Abdominal Surgery: No (b/l kidney transplant) Appendectomy: No Cardiac Surgery: Yes (heart valve replacement 2014) Cholecystectomy: No Lung Surgery: No Neurologic Surgery: No Orthopedic Surgery: Yes (right knee fluid drained) - Suicide/Smoking/Psychosocial Hx Smoking History: Never smoked Have you smoked in the past 12 months: No Information on smoking cessation initiated: No Hx Alcohol Use: No Drug/Substance Use Hx: No Substance Use Type: None Hx Substance Use Treatment: No *Physical Exam - Vital Signs Last Vital Signs Temp Pulse Resp BP Pulse Ox 98.6 F 72 19 97/60 95 04/11/19 15:14 04/11/19 15:14 04/11/19 15:10 04/11/19 15:14 04/11/19 15:14 ED Treatment Course - LABORATORY CBC & Chemistry Diagram: 04/12/19 07:10 04/12/19 07:10 - ADDITIONAL ORDERS Additional order review: Laboratory Results 04/11/19 15:30 Urine Color [place] Urine Appearance Turbid Urine pH 5.0 Ur Specific [place] 1.026 Urine Protein 2+ H Urine Glucose (UA) Negative Urine Ketones Trace H Urine Blood 2+ H Urine Nitrite Positive H Urine Bilirubin 1+ H Urine Urobilinogen 1.0 Ur Leukocyte Esterase 3+ H Urine WBC (Auto) 520 Urine RBC (Auto) 8 Urine Casts (Auto) 27 U Pathogenic Cast Auto None seen U Epithel Cells (Auto) 7.0 Urine Bacteria (Auto) 4345.9 Medical Decision Making - Medical Decision Making 04/11/19 17:27 74 yo M with hx of cardiac arrest (2014), heart valve replacement (2015), b/l kidney transplants, and stroke "years ago" ago presents to ED with weakness, burning with urination, chills, and fever, since yesterday. -cbc, cmp, lactic acid, blood cx -ua, ucx -saline lock 04/11/19 20:14 spoke with admitting md zapien, who accepts patient for inpatient admission *DC/Admit/Observation/Transfer Diagnosis at time of Disposition: Fever, Urinary tract infection, Renal transplant recipient - Discharge Dispostion Decision to Admit order: Yes - Referrals - Patient Instructions - Post Discharge Activity
[2019-04-11 19:18] LABS: BASO % 0.4 % (0-2.0); HEMATOCRIT 43.5 % (35.4-49); HEMOGLOBIN 14.5 GM/dL (11.7-16.9); LYMPH % 3.7 % (8-40); MCH 29.7 pg (25.7-33.7); MCHC 33.4 g/dl (32.0-35.9); MEAN CELL VOLUME 88.8 fl (80-96); MEAN PLT VOLUME 9.7 fl (7.5-11.1); MONO % 7.5 % (3.8-10.2); NEUT % 88.4 % (42.8-82.8); PLATELET COUNT 75 K/MM3 (134-434); RBC 4.89 M/mm3 (4.00-5.60); RDW 15.4 % (11.9-15.9); WHITE BLOOD COUNT 17.1 K/mm3 (4.0-10.0)
[2019-04-11 19:41] LABS: ALBUMIN 3.7 g/dl (3.4-5.0); BLOOD UREA NITROGEN 26.8 mg/dL (7-18); CALCIUM 8.8 mg/dL (8.5-10.1); CREATININE 1.7 mg/dL (0.55-1.3); TOT PROT 6.8 g/dl (6.4-8.2)
[2019-04-11 19:42] LABS: INR 1.14 (0.83-1.09); POTASSIUM 4.1 mmol/L (3.5-5.1); PROTHROMBIN TIME (PATIENT) 13.5 SEC (9.7-13.0)
[2019-04-11 19:44] LABS: ACTIVATED PTT 31.8 SECONDS (25.2-36.5)
[2019-04-11] MEDS ORDERED: VANCOMYCIN 1 GM in D5W (PRE-DOCKED) 1,000 MG/250 ML IVPB ONE (19:47)
[2019-04-11] MEDS ORDERED: PIPERACILLIN/TAZOB 3.375 GM 3.375 GM in DEXTROSE 5%-WATER - 50 ML IVPB ONE (19:47)
[2019-04-11] MEDS ORDERED: PIPERACILLIN/TAZOB 3.375 GM 3.375 GM/50 ML BAG IVPB ONE (19:57)
[2019-04-11] MEDS ORDERED: VANCOMYCIN 1 GRAM (PRE-DOCKED) 1,000 MG/250 ML BAG IVPB ONE (19:57)
--- NOTE | 2019-04-11 20:08 | PN ---
Teaching Attending Note Name of Resident: Faiza Del Rosario ATTENDING PHYSICIAN STATEMENT I saw and evaluated the patient. I reviewed the resident's note and discussed the case with the resident. I agree with the resident's findings and plan as documented. SUBJECTIVE: Patient is a 74 year old man with PMH of Cardiac arrest(2014), Heart valve replacement (2015), Bilateral kidney transplants (2009), and Stroke "years ago" who presents to ER with weakness, burning with urination, chills and fever since yesterday. Patient reports the symptoms have improved but he still has intermittent burning on urination. Patient denies current nausea but states he did have it yesterday and earlier today. Vomited twice this morning. Patient's daughter reports that his transplant doctor Dr. Schuster at [facility] "but the ER is too crazy there so we come here." No headache, chest pain, diarrhea or SOB. No recent travel or sick contacts. OBJECTIVE: Alert Vital Signs Period Temp Pulse Resp BP Sys/Ko Pulse Ox Last 24 Hr 98 F-98.6 F 72-81 19 91-97/47-60 95-96 HEENT: No Jaundice, eye redness or discharge, PERRLA, EOMI. Normocephalic, atraumatic. External ears are normal and hearing is grossly intact. No nasal discharge. Neck: Supple, nontender. No palpable adenopathy or thyromegaly. No JVD Chest: Good effort. Clear to auscultation and percussion. Heart: Regular. No S3, rub or murmur Abdomen: Not distended, soft, nontender and no HSM. No rebound or guarding. No tenderness over transplant kidney. Normal bowel sounds. Ext: Peripheral pulses intact. No leg edema. Skin: Warm and dry. No petechiae, rash or ecchymosis. Neuro: Alert. Oriented x3. CN 2-12 grossly intact. Sensation grossly intact in all four extremities and DTR are symmetric. Psych: Appropriate mood and affect. Good insight. Current Medications Generic Name Dose Route Start Last Admin Trade Name Freq PRN Reason Stop Dose Admin Piperacillin Sod/Tazobactam 50 mls @ 100 mls/hr 04/11/19 19:47 Sod 3.375 gm/ Dextrose IVPB 04/11/19 20:16 ONCE ONE Protocol Home Medications Medication Instructions Recorded Nifedipine [Nifedical Xl] 30 mg PO DAILY 08/24/16 Prednisone 5 mg PO DAILY 08/24/16 Tacrolimus [Prograf] 1 mg PO QID 08/24/16 Aspirin [ASA -] 81 mg PO DAILY 10/14/18 Atorvastatin Ca [Lipitor] 10 mg PO HS 10/14/18 Dapsone 100 mg PO DAILY 10/14/18 Mycophenolate Sodium [Mycophenolic 360 mg PO BID 10/14/18 Acid] Pantoprazole Sodium [Protonix -] 40 mg PO DAILY 10/14/18 Prednisone 5 mg PO DAILY 10/16/18 Abnormal Lab Results 04/11/19 04/11/19 04/11/19 15:30 18:22 18:22 WBC 17.1 H Plt Count 75 L Absolute Neuts (auto) 15.2 H Neutrophils % 88.4 H Lymphocytes % 3.7 L D PT with INR 13.50 H INR 1.14 H Sodium BUN Creatinine Random Glucose Total Bilirubin ALT Urine Protein 2+ H Urine Ketones Trace H Urine Blood 2+ H Urine Nitrite Positive H Urine Bilirubin 1+ H Ur Leukocyte Esterase 3+ H 04/11/19 18:22 WBC Plt Count Absolute Neuts (auto) Neutrophils % Lymphocytes % PT with INR INR Sodium 132 L BUN 26.8 H Creatinine 1.7 H Random Glucose 164 H Total Bilirubin 3.0 H ALT 10 L Urine Protein Urine Ketones Urine Blood Urine Nitrite Urine Bilirubin Ur Leukocyte Esterase ASSESSMENT AND PLAN: 1. UTI - Will treat with IV Rocephin pending culture report. Gentle hydration. No acute abnormality on CXR and EKG shows Afib (?new onset) with a rate of 81/ minute and no significant ST-T wave changes. Will get TSH, ECHO and consult cardiology. Low platelets is unexplained - may be drug side effect - will monitor daily. Will get RUQ sonogram to evaluate elevated bilirubin and consult GI. 2. Kidney transplant recipient - Continue anti-rejection medications and consult nephrology. Avoid all nephrotoxic agents. 3. Hypertension - Restart suitable outpatient antihypertensive drugs when clinically appropriate. Revise regimen to ensure good BP control. Nonpharmacologic measures to control hypertension like weight loss, salt restriction and exercise discussed. 4. DVT prophylaxis - Heparin 5000u sq bid -monitor platelets daily. 5. Advance directives - Full code
--- NOTE | 2019-04-11 21:12 | HP ---
CHIEF COMPLAINT:UTI PCP: HISTORY OF PRESENT ILLNESS: 74 M with PMH of B/L kidney transplants (2001 and 2009), cardiac arrest (2014), valve replacement (2015), UTI, HTN, remote history of stroke who presents with 1 day history of subjective fevers. He had multiple episodes of diarrhea the previous day, along with dysuria and some hematuria. His diarrhea subsided today after he took peptobismol. Vomited twice this morning. He denied any sick contacts, and no one in the house has similar symptoms to his. His fever and chills began yesterday. He denies any abdominal pains, and chest pains, any weakness, dizziness, and headaches. ER course was notable for: (1)Vancomycin and Zosyn were given in the ED. (2)EKG found new onset A-Fib. (3)Chest X-ray found no infiltrate. Recent Travel: No PAST MEDICAL HISTORY: Cardiac Arrest (2014), Heart Valve replacement (2015, unknown type) B/L Kidney replacement (2001,2009), UTI, HTN PAST SURGICAL HISTORY: kidney replacement, heart valve placement Social History: Smoking: Denies Alcohol:Denies Drugs: Denies Family History: Denies significant family hx Allergies No Known Allergies Allergy (Verified 04/11/19 15:14) HOME MEDICATIONS: Home Medications Medication Instructions Recorded Nifedipine [Nifedical Xl] 30 mg PO BID 08/24/16 Prednisone 5 mg PO DAILY 08/24/16 Tacrolimus [Prograf] 3 mg PO BID 08/24/16 Aspirin [ASA -] 81 mg PO DAILY 10/14/18 Atorvastatin Ca [Lipitor] 10 mg PO HS 10/14/18 Dapsone 100 mg PO DAILY 10/14/18 Mycophenolate Sodium [Mycophenolic 360 mg PO BID 10/14/18 Acid] Pantoprazole Sodium [Protonix -] 40 mg PO DAILY 10/14/18 Prednisone 5 mg PO DAILY 10/16/18 REVIEW OF SYSTEMS In addition to above CONSTITUTIONAL: fever, chills, loss of appetite Absent: diaphoresis, generalized weakness, malaise, weight change, headache HEENT: Absent: rhinorrhea, nasal congestion, throat pain, throat swelling, difficulty swallowing, CARDIOVASCULAR: Absent: chest pain, syncope, palpitations, irregular heart rate, lightheadedness , peripheral edema RESPIRATORY: Absent: cough, shortness of breath, dyspnea with exertion, orthopnea, wheezing, stridor, hemoptysis GASTROINTESTINAL:nausea, vomiting, diarrhea Absent: abdominal pain, abdominal distension, constipation, melena, hematochezia GENITOURINARY: dysuria, hematuria Absent: frequency, urgency, hesitancy, flank pain, genital pain MUSCULOSKELETAL: Absent: myalgia, arthralgia, joint swelling, back pain, neck pain SKIN: Absent: rash, itching, pallor HEMATOLOGIC/IMMUNOLOGIC: Absent: easy bleeding, easy bruising, lymphadenopathy, frequent infections ENDOCRINE: Absent: unexplained weight gain, unexplained weight loss, heat intolerance, cold intolerance PHYSICAL EXAMINATION Vital Signs - 24 hr 04/11/19 04/11/19 15:10 15:14 Temperature 98 F 98.6 F Pulse Rate 81 Pulse Rate [ 72 Right Radial] Respiratory 19 Rate Blood Pressure 91/47 L Blood Pressure 97/60 [Left Arm] O2 Sat by Pulse 96 95 Oximetry (%) GENERAL: Awake, alert, and fully oriented, in no acute distress. HEAD: Normal with no signs of trauma. EYES: Pupils equal, round and reactive to light, extraocular movements intact, sclera anicteric, conjunctiva clear. EARS, NOSE, THROAT: Ears normal, nares patent, oropharynx clear without exudates. Moist mucous membranes. NECK: Normal range of motion, supple without lymphadenopathy, JVD, or masses. LUNGS: Breath sounds equal, clear to auscultation bilaterally. No wheezes, and no crackles. No accessory muscle use. HEART: Irregularly irregular, no murmur, rub or gallop. ABDOMEN: Soft, nontender, not distended, normoactive bowel sounds, no guarding, no rebound, no masses. UPPER EXTREMITIES: 2+ pulses, warm, well-perfused. No cyanosis. No clubbing. No peripheral edema. LOWER EXTREMITIES: 2+ pulses, warm, well-perfused. No calf tenderness. No peripheral edema. SKIN: Warm, dry, normal turgor, no rashes or lesions noted, normal capillary refill. Laboratory Results - last 24 hr 04/11/19 04/11/19 04/11/19 15:30 18:22 18:22 WBC 17.1 H RBC 4.89 Hgb 14.5 Hct 43.5 MCV 88.8 MCH 29.7 MCHC 33.4 RDW 15.4 Plt Count 75 L MPV 9.7 D Absolute Neuts (auto) 15.2 H Neutrophils % 88.4 H Lymphocytes % 3.7 L D Monocytes % 7.5 Eosinophils % 0.0 Basophils % 0.4 Nucleated RBC % 0 PT with INR 13.50 H INR 1.14 H PTT (Actin FS) 31.8 Sodium Potassium Chloride Carbon Dioxide Anion Gap BUN Creatinine Est GFR (CKD-EPI)AfAm Est GFR (CKD-EPI)NonAf Random Glucose Lactic Acid Calcium Total Bilirubin AST ALT Alkaline Phosphatase Total Protein Albumin Urine Color [place] Urine Appearance Turbid Urine pH 5.0 Ur Specific [place] 1.026 Urine Protein 2+ H Urine Glucose (UA) Negative Urine Ketones Trace H Urine Blood 2+ H Urine Nitrite Positive H Urine Bilirubin 1+ H Urine Urobilinogen 1.0 Ur Leukocyte Esterase 3+ H Urine WBC (Auto) 520 Urine RBC (Auto) 8 Urine Casts (Auto) 27 U Pathogenic Cast Auto None seen U Epithel Cells (Auto) 7.0 Urine Bacteria (Auto) 4345.9 04/11/19 04/11/19 18:22 18:22 WBC RBC Hgb Hct MCV MCH MCHC RDW Plt Count MPV Absolute Neuts (auto) Neutrophils % Lymphocytes % Monocytes % Eosinophils % Basophils % Nucleated RBC % PT with INR INR PTT (Actin FS) Sodium 132 L Potassium 4.1 Chloride 98 Carbon Dioxide 25 Anion Gap 9 BUN 26.8 H Creatinine 1.7 H Est GFR (CKD-EPI)AfAm 45.68 Est GFR (CKD-EPI)NonAf 39.41 Random Glucose 164 H Lactic Acid 1.9 Calcium 8.8 Total Bilirubin 3.0 H AST 15 ALT 10 L Alkaline Phosphatase 80 Total Protein 6.8 Albumin 3.7 Urine Color Urine Appearance Urine pH Ur Specific [place] Urine Protein Urine Glucose (UA) Urine Ketones Urine Blood Urine Nitrite Urine Bilirubin Urine Urobilinogen Ur Leukocyte Esterase Urine WBC (Auto) Urine RBC (Auto) Urine Casts (Auto) U Pathogenic Cast Auto U Epithel Cells (Auto) Urine Bacteria (Auto) ASSESSMENT/PLAN: 74 M with PMHx significant for cardiac arrest, heart valve replacement, b/l kidney transplants, UTI, HTN who presents today with UTI and potential new Afib. 1) UTI Ceftriaxone IV 1 gram given Follow up urine culture Nephrology consult 2)Afib Anticoagulation with Apixaban 5mg PO BID Consult Cardiology 3)S/P Renal transplant Continue home medications 4)Hyperbilirubinemia Right Quadrant ultra sound 5)HTN Continue home medications DVT prophylaxis: Anticoagulation started with Apixaban 5mg PO BID F: no fluids running at the moment E: Follow BMP N: Sodium controlled diet Dispo: Admit to telemetry Problem List - Problem (1) Elevated serum creatinine Code(s): R79.89 - OTHER SPECIFIED ABNORMAL FINDINGS OF BLOOD CHEMISTRY (2) HTN (hypertension) Code(s): I10 - ESSENTIAL (PRIMARY) HYPERTENSION (3) Hyperlipidemia Code(s): E78.5 - HYPERLIPIDEMIA, UNSPECIFIED (4) Renal transplant recipient Code(s): Z94.0 - KIDNEY TRANSPLANT STATUS Visit type - Emergency Visit Emergency Visit: Yes ED Registration Date: 04/11/19 Care time: The patient presented to the Emergency Department on the above date and was hospitalized for further evaluation of their emergent condition. - New Patient This patient is new to me today: Yes Date on this admission: 04/11/19 - Critical Care Critical Care patient: No ATTENDING PHYSICIAN STATEMENT I saw and evaluated the patient. I reviewed the resident's note and discussed the case with the resident. I agree with the resident's findings and plan as documented. SUBJECTIVE: OBJECTIVE: ASSESSMENT AND PLAN:
[2019-04-11] MEDS ORDERED: CEFTRIAXONE 1 GM in DEXTROSE 5%-WATER - 50 ML IVPB ONE (23:13)
[2019-04-11] MEDS ORDERED: CEFTRIAXONE 1 GM/50 ML BAG ONE (23:25)
[2019-04-11] MEDS ORDERED: ACETAMINOPHEN 500 MG TABLET (FP) PO ONE (23:27)
[2019-04-11] MEDS: MYCOPHENOLATE SODIUM 360 MG TABLET.DR PO SCH (23:40)
[2019-04-11] MEDS: TACROLIMUS ANHYDROUS 1 MG CAPSULE PO SCH (23:40)
[2019-04-11] MEDS ORDERED: ACETAMINOPHEN INJECTION 100 ML IVPB ONE (23:49)
[2019-04-12 08:19] LABS: ALBUMIN 3.1 g/dl (3.4-5.0); BILIRUBIN,TOTAL 2.3 mg/dL (0.2-1); CREATININE 1.3 mg/dL (0.55-1.3); MAGNESIUM 1.9 mg/dL (1.8-2.4); POTASSIUM 3.9 mmol/L (3.5-5.1); TOT PROT 5.9 g/dl (6.4-8.2)
[2019-04-12 08:30] LABS: BASO % 0.3 % (0-2.0); EOS % 0.1 % (0-4.5); HEMATOCRIT 39.8 % (35.4-49); HEMOGLOBIN 13.3 GM/dL (11.7-16.9); LYMPH % 4.1 % (8-40); MCH 29.8 pg (25.7-33.7); MCHC 33.4 g/dl (32.0-35.9); MEAN CELL VOLUME 89.2 fl (80-96); MEAN PLT VOLUME 10.6 fl (7.5-11.1); MONO % 9.9 % (3.8-10.2); NEUT % 85.6 % (42.8-82.8); PLATELET COUNT 62 K/MM3 (134-434); RBC 4.47 M/mm3 (4.00-5.60); RDW 15.1 % (11.9-15.9); WHITE BLOOD COUNT 13.7 K/mm3 (4.0-10.0)
[2019-04-12] MEDS: TACROLIMUS ANHYDROUS 1 MG CAPSULE PO SCH ×2 (10:00→22:12)
[2019-04-12] MEDS ORDERED: ASPIRIN 81 MG CHEWABLE TABLETS PO SCH (10:00)
[2019-04-12] MEDS: predniSONE 5 MG TABLET (UD) PO SCH (10:00)
[2019-04-12] MEDS: MYCOPHENOLATE SODIUM 360 MG TABLET.DR PO SCH ×2 (10:00→22:11)
[2019-04-12] MEDS: PANTOPRAZOLE 40 MG TABLET (FP) PO SCH (10:00)
[2019-04-12] MEDS: NIFEdipine E.R. 30 MG TABLET (FP) PO SCH ×2 (10:00→21:11)
[2019-04-12] MEDS: CEFTRIAXONE 1 GM in DEXTROSE 5%-WATER - 50 ML IVPB SCH (10:15)
[2019-04-12] MEDS ORDERED: CEFTRIAXONE 1 GM/50 ML BAG ONE (10:28)
[2019-04-12] MEDS: APIXABAN 5 MG TABLET PO SCH ×2 (10:54→21:11)
--- NOTE | 2019-04-12 12:52 | EKG ---
Test Reason : Blood Pressure : / mmHG Vent. Rate : 081 BPM Atrial Rate : 070 BPM P-R Int : 000 ms QRS Dur : 084 ms QT Int : 362 ms P-R-T Axes : 000 -12 049 degrees QTc Int : 420 ms ATRIAL FIBRILLATION ABNORMAL ECG WHEN COMPARED WITH ECG OF 17-OCT-2018 09:54, ATRIAL FIBRILLATION HAS REPLACED SINUS RHYTHM QRS DURATION HAS DECREASED POOR DATA QUALITY, INTERPRETATION MAY BE ADVERSELY AFFECTED Confirmed by ALVAREZ SCHROEDER MD ([id number]) on 04/12/2019 12:52:10 PM Referred By: Confirmed By:ALVAREZ SCHROEDER MD
--- NOTE | 2019-04-12 13:31 | PN ---
Physical Exam: SUBJECTIVE: Patient seen and examined at bedside. pt states he only has some tingling when he urinates. pt states that he had some hematuria yesterday. he states he does not have hematuria today but his urine is dark OBJECTIVE: Vital Signs Period Temp Pulse Resp BP Sys/Ko Pulse Ox Last 24 Hr 98 F-101 F 72-98 18-20 91-133/47-64 95-98 GENERAL: The patient is awake, alert, and fully oriented, in no acute distress. LUNGS: Breath sounds equal, clear to auscultation bilaterally, no wheezes, no crackles, no accessory muscle use. NECK: + Hepatojugular reflex HEART: Regular rate and rhythm, S1, S2 systolic murmur, rub or gallop. ABDOMEN: Soft, nontender, nondistended, normoactive bowel sounds. no cva tenderness EXTREMITIES: 2+ pulses, warm, well-perfused, no edema. PSYCH: Normal mood, normal affect. SKIN: Warm, dry, normal turgor, no rashes or lesions noted Rectal exam: good sphincter tone, no external hemmorrhoid visualized, no internal hemorrhoid felt, no active bleeding noted, no blood on tip of glove Laboratory Results - last 24 hr 04/11/19 04/11/19 04/11/19 15:30 18:22 18:22 WBC 17.1 H RBC 4.89 Hgb 14.5 Hct 43.5 MCV 88.8 MCH 29.7 MCHC 33.4 RDW 15.4 Plt Count 75 L MPV 9.7 D Absolute Neuts (auto) 15.2 H Neutrophils % 88.4 H Lymphocytes % 3.7 L D Monocytes % 7.5 Eosinophils % 0.0 Basophils % 0.4 Nucleated RBC % 0 PT with INR 13.50 H INR 1.14 H PTT (Actin FS) 31.8 Sodium Potassium Chloride Carbon Dioxide Anion Gap BUN Creatinine Est GFR (CKD-EPI)AfAm Est GFR (CKD-EPI)NonAf Random Glucose Lactic Acid Calcium Magnesium Total Bilirubin AST ALT Alkaline Phosphatase Troponin I Total Protein Albumin Urine Color [place] Urine Appearance Turbid Urine pH 5.0 Ur Specific [place] 1.026 Urine Protein 2+ H Urine Glucose (UA) Negative Urine Ketones Trace H Urine Blood 2+ H Urine Nitrite Positive H Urine Bilirubin 1+ H Urine Urobilinogen 1.0 Ur Leukocyte Esterase 3+ H Urine WBC (Auto) 520 Urine RBC (Auto) 8 Urine Casts (Auto) 27 U Pathogenic Cast Auto None seen U Epithel Cells (Auto) 7.0 Urine Bacteria (Auto) 4345.9 Stool Occult Blood 04/11/19 04/11/19 04/12/19 18:22 18:22 07:10 WBC 13.7 H RBC 4.47 Hgb 13.3 Hct 39.8 MCV 89.2 MCH 29.8 MCHC 33.4 RDW 15.1 Plt Count 62 L MPV 10.6 Absolute Neuts (auto) 11.8 H Neutrophils % 85.6 H Lymphocytes % 4.1 L Monocytes % 9.9 Eosinophils % 0.1 D Basophils % 0.3 Nucleated RBC % 0 PT with INR INR PTT (Actin FS) Sodium 132 L Potassium 4.1 Chloride 98 Carbon Dioxide 25 Anion Gap 9 BUN 26.8 H Creatinine 1.7 H Est GFR (CKD-EPI)AfAm 45.68 Est GFR (CKD-EPI)NonAf 39.41 Random Glucose 164 H Lactic Acid 1.9 Calcium 8.8 Magnesium Total Bilirubin 3.0 H AST 15 ALT 10 L Alkaline Phosphatase 80 Troponin I 0.06 H Total Protein 6.8 Albumin 3.7 Urine Color Urine Appearance Urine pH Ur Specific [place] Urine Protein Urine Glucose (UA) Urine Ketones Urine Blood Urine Nitrite Urine Bilirubin Urine Urobilinogen Ur Leukocyte Esterase Urine WBC (Auto) Urine RBC (Auto) Urine Casts (Auto) U Pathogenic Cast Auto U Epithel Cells (Auto) Urine Bacteria (Auto) Stool Occult Blood 04/12/19 04/12/19 07:10 12:08 WBC RBC Hgb Hct MCV MCH MCHC RDW Plt Count MPV Absolute Neuts (auto) Neutrophils % Lymphocytes % Monocytes % Eosinophils % Basophils % Nucleated RBC % PT with INR INR PTT (Actin FS) Sodium 134 L Potassium 3.9 Chloride 101 Carbon Dioxide 25 Anion Gap 8 BUN 26.0 H Creatinine 1.3 Est GFR (CKD-EPI)AfAm 63.18 Est GFR (CKD-EPI)NonAf 54.51 Random Glucose 135 H Lactic Acid Calcium 8.0 L Magnesium 1.9 Total Bilirubin 2.3 H AST 8 L ALT 7 L Alkaline Phosphatase 67 Troponin I Total Protein 5.9 L Albumin 3.1 L Urine Color Urine Appearance Urine pH Ur Specific [place] Urine Protein Urine Glucose (UA) Urine Ketones Urine Blood Urine Nitrite Urine Bilirubin Urine Urobilinogen Ur Leukocyte Esterase Urine WBC (Auto) Urine RBC (Auto) Urine Casts (Auto) U Pathogenic Cast Auto U Epithel Cells (Auto) Urine Bacteria (Auto) Stool Occult Blood Negative Active Medications Generic Name Dose Route Start Last Admin Trade Name Bandar PRN Reason Stop Dose Admin Apixaban 5 mg 04/12/19 10:00 04/12/19 10:54 Eliquis - PO 5 mg BID LIDIA Administration Aspirin 81 mg 04/12/19 10:00 04/12/19 10:00 Asa - PO 81 mg DAILY LIDIA Administration Atorvastatin Calcium 10 mg 04/12/19 22:00 Lipitor - PO HS LIDIA Ceftriaxone Sodium 1 gm/ 50 mls @ 100 mls/hr 04/12/19 10:00 04/12/19 10:15 Dextrose IVPB 100 mls/hr DAILY LIDIA Administration Protocol Mycophenolate Sodium 360 mg 04/11/19 23:14 04/12/19 10:00 Mycophenolic Acid PO 360 mg BID LIDIA Administration Nifedipine 30 mg 04/12/19 10:00 04/12/19 10:00 Procardia Xl - PO 30 mg BID LIDIA Administration Pantoprazole Sodium 40 mg 04/12/19 10:00 04/12/19 10:00 Protonix - PO 40 mg DAILY LIDIA Administration Prednisone 5 mg 04/12/19 10:00 04/12/19 10:00 Deltasone - PO 5 mg DAILY LIDIA Administration Tacrolimus 3 mg 04/11/19 23:15 04/12/19 10:00 Prograf PO 3 mg BID LIDIA Administration ASSESSMENT/PLAN: 74 M with PMH of B/L kidney transplants (2001, 2009), cardiac arrest (2014), valve replacement (2015), HTN, remote history of stroke p/w with 1 day history of dysuria, fevers, rigors. In ED pt was febrile to 101. empiric tx with vanc and zosyn. In ED pt was found with AFIB that was rate control Sepsis likely 2/2 UTI -+UA, awaiting U Cx -pt has since been afebrile -WBC downtrending, 17.1--> 13.7 -awaiting BCx -no CVA tenderness -c/w rocephin ALONSO -Cr improving 1.7-->1.3 -pt s/p b/l kidney transplant -Nephrology consulted -pt should c/w mycophenolate and tacrolimus -will check tacrolimus level -awaiting u/s of the kidney -c/w fluids Thrombocytopenia -75-->62 -hold anticoagulation Hyperbilirubinema -GI recommendations appreciated -Will monitor LFTs -pending hepatic panel Afib -possibly 2/2 infection -no cardiac complaints -will hold apixaban(as per cardio recs) bc of thrombocytopenia -continue tele monitoring Visit type - Emergency Visit Emergency Visit: Yes ED Registration Date: 04/11/19 Care time: The patient presented to the Emergency Department on the above date and was hospitalized for further evaluation of their emergent condition. - New Patient This patient is new to me today: Yes Date on this admission: 04/12/19 - Critical Care Critical Care patient: No - Discharge Referral Referred to [facility] Med [facility] No ATTENDING PHYSICIAN STATEMENT I saw and evaluated the patient. I reviewed the resident's note and discussed the case with the resident. I agree with the resident's findings and plan as documented. SUBJECTIVE: OBJECTIVE: ASSESSMENT AND PLAN:
--- NOTE | 2019-04-12 14:31 | CON.CARD ---
Consult Consult Specialty:: Cardiology Referred by:: lauren Michel Reason for Consultation:: Afib - History of Present Illness Chief Complaint: diarrhea/chills History of Present Illness: 74 year old male with a pmhx of htn, ESRD s/p kidney Tx 2001 and 2009, nonobs CAD, h/o TIA, and s/p TAVR 2015, and cardiac arrest 2014 admitted with fevers/ diarrhea/ and dysuria. Also noted two episodes of vomiting. Denies any chest pain, sob, or palpitations. No pnd, orthopnea or edema. Found to be in afib with rate control. 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 Cardio/Vascular: Yes: Aortic Stenosis, CAD, Deep Vein Thrombosis, HTN, Hyperlipdemia, Murmur Renal/: Yes: Renal Failure, Other (s/p renal [place]) - Past Surgical History Past Surgical History: Yes: AV Fistula/Graft, Kidney Transplant - Alcohol/Substance Use Hx Alcohol Use: No History of Substance Use: reports: None - Smoking History Smoking history: Never smoked Have you smoked in the past 12 months: No - Social History ADL: Independent History of Recent Travel: No Home Medications - Allergies Allergies/Adverse Reactions: Allergies Allergy/AdvReac Type Severity Reaction Status Date / Time No Known Allergies Allergy Verified 04/11/19 15:14 - Home Medications Home Medications: Ambulatory Orders Nifedipine [Nifedical Xl] 30 mg PO BID 08/24/16 Prednisone 5 mg PO DAILY 08/24/16 Tacrolimus [Prograf] 3 mg PO BID 08/24/16 Aspirin [ASA -] 81 mg PO DAILY 10/14/18 Atorvastatin Ca [Lipitor] 10 mg PO HS 10/14/18 Dapsone 100 mg PO DAILY 10/14/18 Mycophenolate Sodium [Mycophenolic Acid] 360 mg PO BID 10/14/18 Pantoprazole Sodium [Protonix -] 40 mg PO DAILY 10/14/18 Prednisone 5 mg PO DAILY 10/16/18 Ergocalciferol (Vitamin D2) [Vitamin D2] 50,000 unit PO Q7D 04/12/19 Vital Signs: Vital Signs Temperature 98.6 F 04/12/19 10:01 Pulse Rate 77 04/12/19 10:01 Respiratory Rate 18 04/12/19 10:01 Blood Pressure 113/58 L 04/12/19 10:01 O2 Sat by Pulse Oximetry (%) 98 04/12/19 10:01 Constitutional: Yes: No Distress Neck: Yes: Supple Respiratory: Yes: CTA Bilaterally Gastrointestinal: Yes: Soft Cardiovascular: Yes: Pulse Irregular JVD: No Carotid Bruit: No PMI: Non-Displaced Heart Sounds: Yes: S1, S2 Murmur: Yes: Systolic Murmur Edema: No - Other Data Labs, Other Data: CBC, BMP 04/12/19 07:10 04/12/19 07:10 INR, PTT INR 1.14 (0.83-1.09) H 04/11/19 18:22 Troponin, BNP 04/11/19 18:22 Troponin I 0.06 H Troponin, BNP 04/11/19 18:22 Troponin I 0.06 H Imaging - Results EKG: Image Reviewed Assessment/Plan 74 year old male with a pmhx of htn, ESRD s/p kidney Tx 2001 and 2009, nonobs CAD, h/o TIA, and s/p TAVR 2015, and cardiac arrest 2014 admitted with fevers/ diarrhea/ and dysuria. Also noted two episodes of vomiting. Denies any chest pain, sob, or palpitations. No pnd, orthopnea or edema. Found to be in afib with rate control. 1) Afib New afib in setting of possible infection. No cardiac complaints Started on AC with apixaban Would admit to tele for 24 hours and will see if any need for av flora blockers -Treat underlying illness and infection
--- NOTE | 2019-04-12 15:03 | CONSULT ---
Consult Consult Specialty:: Nephrology Reason for Consultation:: kidney transplant - History of Present Illness Chief Complaint: dysuria fevers and chills History of Present Illness: Pt is a 74 year old male with pmhx of esrd with kidney tranplant x 2, cardiac arrest in 2015, heart valve replacement, and cva who presents to the ER with dysuria. He also complains of fevers and chills. He denies nausea. He did vomit yesterday. He follows with Dr Schuster in [facility]. I was called to evaluate him as he has a kidney transplant and his supervisor wheel shop was elevated. He responded to fluids and antibiotics. His renal function is improving. He says that he feels better today and that the fevers and chills have resolved. He denies dysuria. 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 Cardio/Vascular: Yes: Aortic Stenosis, CAD, Deep Vein Thrombosis, HTN, Hyperlipdemia, Murmur Renal/: Yes: Renal Failure, Other (s/p renal [place]) - Past Surgical History Past Surgical History: Yes: AV Fistula/Graft, Kidney Transplant - Alcohol/Substance Use Hx Alcohol Use: No History of Substance Use: reports: None - Smoking History Smoking history: Never smoked Have you smoked in the past 12 months: No - Social History ADL: Independent History of Recent Travel: No Home Medications - Allergies Allergies/Adverse Reactions: Allergies Allergy/AdvReac Type Severity Reaction Status Date / Time No Known Allergies Allergy Verified 04/11/19 15:14 - Home Medications Home Medications: Ambulatory Orders Nifedipine [Nifedical Xl] 30 mg PO BID 08/24/16 Prednisone 5 mg PO DAILY 08/24/16 Tacrolimus [Prograf] 3 mg PO BID 08/24/16 Aspirin [ASA -] 81 mg PO DAILY 10/14/18 Atorvastatin Ca [Lipitor] 10 mg PO HS 10/14/18 Dapsone 100 mg PO DAILY 10/14/18 Mycophenolate Sodium [Mycophenolic Acid] 360 mg PO BID 10/14/18 Pantoprazole Sodium [Protonix -] 40 mg PO DAILY 10/14/18 Prednisone 5 mg PO DAILY 10/16/18 Ergocalciferol (Vitamin D2) [Vitamin D2] 50,000 unit PO Q7D 04/12/19 Family Disease History - Family Disease History Family History: Denies Review of Systems - Review of Systems Constitutional: reports: Chills, Fever, Malaise Eyes: reports: No Symptoms HENT: reports: No Symptoms Neck: reports: No Symptoms Cardiovascular: reports: No Symptoms Respiratory: reports: No Symptoms Gastrointestinal: reports: Vomiting Genitourinary: reports: Burning Musculoskeletal: reports: No Symptoms Integumentary: reports: No Symptoms Neurological: reports: No Symptoms Endocrine: reports: No Symptoms Hematology/Lymphatic: reports: No Symptoms Psychiatric: reports: No Symptoms Physical Exam Vital Signs: Vital Signs Temperature 98.6 F 04/12/19 10:01 Pulse Rate 77 04/12/19 10:01 Respiratory Rate 18 04/12/19 10:01 Blood Pressure 113/58 L 04/12/19 10:01 O2 Sat by Pulse Oximetry (%) 98 04/12/19 10:01 Constitutional: Yes: Calm Eyes: Yes: Conjunctiva Clear HENT: Yes: Atraumatic Cardiovascular: Yes: S1, S2 Respiratory: Yes: CTA Bilaterally Gastrointestinal: Yes: Soft Renal/: Yes: Other (graft is soft and non tender) Musculoskeletal: Yes: WNL Edema: No Neurological: Yes: Oriented Psychiatric: Yes: Oriented Labs: CBC, BMP 04/12/19 07:10 04/12/19 07:10 Laboratory Tests 04/11/19 04/11/19 04/11/19 15:30 18:22 18:22 WBC 17.1 H Hgb 14.5 Sodium 132 L Potassium Chloride Carbon Dioxide Anion Gap BUN 26.8 H Creatinine 1.7 H Random Glucose Calcium Total Bilirubin 3.0 H Total Protein Urine Protein 2+ H Urine Blood 2+ H Urine Nitrite Positive H Urine Bilirubin 1+ H Ur Leukocyte Esterase 3+ H Stool Occult Blood 04/12/19 04/12/19 04/12/19 07:10 07:10 12:08 WBC 13.7 H Hgb 13.3 Sodium 134 L Potassium 3.9 Chloride 101 Carbon Dioxide 25 Anion Gap 8 BUN 26.0 H Creatinine 1.3 Random Glucose 135 H Calcium 8.0 L Total Bilirubin 2.3 H Total Protein 5.9 L Urine Protein Urine Blood Urine Nitrite Urine Bilirubin Ur Leukocyte Esterase Stool Occult Blood Negative Imaging - Results Chest X-ray: Report Reviewed Problem List - Problems (1) CKD (chronic kidney disease) Code(s): N18.9 - CHRONIC KIDNEY DISEASE, UNSPECIFIED (2) DEV (acute kidney injury) Code(s): N17.9 - ACUTE KIDNEY FAILURE, UNSPECIFIED (3) Fever Code(s): R50.9 - FEVER, UNSPECIFIED (4) Renal transplant recipient Code(s): Z94.0 - KIDNEY TRANSPLANT STATUS Assessment/Plan Current Medications Generic Name Dose Route Start Last Admin Trade Name Bandar PRN Reason Stop Dose Admin Apixaban 5 mg 04/12/19 10:00 04/12/19 10:54 Eliquis - PO 5 mg BID LIDIA Administration Aspirin 81 mg 04/12/19 10:00 04/12/19 10:00 Asa - PO 81 mg DAILY LIDIA Administration Atorvastatin Calcium 10 mg 04/12/19 22:00 Lipitor - PO HS LIDIA Ceftriaxone Sodium 1 gm/ 50 mls @ 100 mls/hr 04/12/19 10:00 04/12/19 10:15 Dextrose IVPB 100 mls/hr DAILY LIDIA Administration Protocol Mycophenolate Sodium 360 mg 04/11/19 23:14 04/12/19 10:00 Mycophenolic Acid PO 360 mg BID LIDIA Administration Nifedipine 30 mg 04/12/19 10:00 04/12/19 10:00 Procardia Xl - PO 30 mg BID LIDIA Administration Pantoprazole Sodium 40 mg 04/12/19 10:00 04/12/19 10:00 Protonix - PO 40 mg DAILY LIDIA Administration Prednisone 5 mg 04/12/19 10:00 04/12/19 10:00 Deltasone - PO 5 mg DAILY LIDIA Administration Tacrolimus 3 mg 04/11/19 23:15 04/12/19 10:00 Prograf PO 3 mg BID LIDIA Administration Impression 1. kidney transplant 2. ckd 3. gerd 4. dev 5. UTI 6. valve replacement 7. cad 8. hx of cardiac arrest Plan - renal function is improving - cont abx - follow cultures - cont prograf, mmf and prednisone - clinically he is improving - check prograf level - check transplant ultrasound - will give another liter of saline
[2019-04-12] MEDS ORDERED: SODIUM CHLORIDE 1,000 ML IV SCH (15:15)
--- NOTE | 2019-04-12 16:18 | CON.GI ---
Consult Consult Specialty:: GI Referred by:: Hospitalist Service Reason for Consultation:: Elevated bilirubin - History of Present Illness Chief Complaint: Shakes, sweating History of Present Illness: 74M admitted through [facility] for what he says was shaking and diaphoresis. The admit notes mentions dysuria and hematuria. It also mentions diarrhea. He denies significant diarrhea. He currently states feeling well. Prior to admission he denies abdominal pain, nausea, vomiting, dysphagia, odynophagia. He believes that he had an unrevealing colonoscopy 4 months ago at [facility]. Prior to that he said he had one 5 years prior that led to the removal of a colon polyp. Currently asked to evaluate elevated bilirubin. There is an isolated hyperbilirubinemia and direct bilirubin has not been checked. In review of the [employer] system it appears as though he has had elevations of bilirubin in the past. He denies alcohol use or known history of liver disease. 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 Cardio/Vascular: Yes: Aortic Stenosis (Severe), CAD, Deep Vein Thrombosis, HTN, Hyperlipdemia, Murmur Renal/: Yes: Renal Failure, Other (s/p renal [place]) - Past Surgical History Past Surgical History: Yes: AV Fistula/Graft, Kidney Transplant Additional Surgical History: TAVR - Alcohol/Substance Use Hx Alcohol Use: No History of Substance Use: reports: None - Smoking History Smoking history: Never smoked Have you smoked in the past 12 months: No - Social History Usual Living Arrangement: With Spouse ADL: Independent Occupation: Retired: worked for a [employer] Place of : Other ([place]) Came to [place]year[place] 1964 History of Recent Travel: No Home Medications - Allergies Allergies/Adverse Reactions: Allergies Allergy/AdvReac Type Severity Reaction Status Date / Time No Known Allergies Allergy Verified 04/11/19 15:14 - Home Medications Home Medications: Ambulatory Orders Nifedipine [Nifedical Xl] 30 mg PO BID 08/24/16 Prednisone 5 mg PO DAILY 08/24/16 Tacrolimus [Prograf] 3 mg PO BID 08/24/16 Aspirin [ASA -] 81 mg PO DAILY 10/14/18 Atorvastatin Ca [Lipitor] 10 mg PO HS 10/14/18 Dapsone 100 mg PO DAILY 10/14/18 Mycophenolate Sodium [Mycophenolic Acid] 360 mg PO BID 10/14/18 Pantoprazole Sodium [Protonix -] 40 mg PO DAILY 10/14/18 Prednisone 5 mg PO DAILY 10/16/18 Ergocalciferol (Vitamin D2) [Vitamin D2] 50,000 unit PO Q7D 04/12/19 Family Disease History - Family Disease History Family Disease History: Other: Father (: Old age), Mother (: 86: Cancer (points towards his axilla)), Brother (: diabetic complications), Sister ( : intraabdominal cancer) Review of Systems - Review of Systems Constitutional: reports: Chills, Diaphoresis, Fever Cardiovascular: denies: Chest Pain Respiratory: denies: Cough, SOB Gastrointestinal: denies: Abdominal Pain, Melena, Rectal Bleeding, Vomiting Physical Exam-GI Vital Signs: Vital Signs Temperature 98.6 F 04/12/19 10:01 Pulse Rate 77 04/12/19 10:01 Respiratory Rate 18 04/12/19 10:01 Blood Pressure 113/58 L 04/12/19 10:01 O2 Sat by Pulse Oximetry (%) 98 04/12/19 10:01 Constitutional: Yes: Calm Eyes: Yes: Sclera Icterus Cardiovascular: Yes: Regular Rate and Rhythm, Murmur (+ holosystolic murmur at the RSB and + JOSE at the LSB) Respiratory: Yes: CTA Bilaterally Gastrointestinal Inspection: No: Distention, Scars ...Auscultate: Yes: Normoactive Bowel Sounds ...Palpate: Yes: Soft. No: Hepatomegaly, Splenomegaly, Tenderness Edema: No (No LE edema) Neurological: Yes: Alert Labs: CBC, BMP 04/12/19 07:10 04/12/19 07:10 INR, PTT INR 1.14 (0.83-1.09) H 04/11/19 18:22 Hepatic Panel Total Bilirubin 2.3 mg/dL (0.2-1) H 04/12/19 07:10 AST 8 U/L (15-37) L 04/12/19 07:10 ALT 7 U/L (13-61) L 04/12/19 07:10 Alkaline Phosphatase 67 U/L (45-117) 04/12/19 07:10 Albumin 3.1 g/dl (3.4-5.0) L 04/12/19 07:10 Problem List - Problems (1) Elevated bilirubin Assessment/Plan: Unclear etiology of isolated hyperbilirubinemia. Unclear if this is direct or indirect. He has thrombocytopenia. Unclear what the etiology of this is either. ? preexisting liver disease, ? consumptive s/p TAVR / alternate etiology. ? if this has been worked up at [facility]. Advise: Contacting his medical doctor and transplant attending at [facility] to obtain more information regarding lab abnormalities, previous testing that was performed for further evaluation of this and to arrange further follow-up with his medical doctor, transplant doctor and systems support engineer who performed his colonoscopy 4 months ago. Check Hepatitis A IgG antibody, HCV antibody, Hepatitis B surface antigen, hepatitis B surface antibody, hepatitis B core antibody Check direct bilirubin (available in hepatic panel). If indirect hyperbilirubinemia, work-up per primary team Monitor LFTs Code(s): R17 - UNSPECIFIED JAUNDICE (2) Thickening of wall of gallbladder Assessment/Plan: with stone in neck of gallbladder. Currently asymptomatic and denied nausea, vomiting or abdominal pain prior to admission. Can obtain surgical opinion regarding this finding. Code(s): K82.8 - OTHER SPECIFIED DISEASES OF GALLBLADDER (3) UTI (urinary tract infection) Assessment/Plan: Immunocompromised patient on antirejection regimen. Consider ID evaluation Code(s): N39.0 - URINARY TRACT INFECTION, SITE NOT SPECIFIED
--- NOTE | 2019-04-12 19:08 | PN ---
Teaching Attending Note Name of Resident: Mariia Leo ATTENDING PHYSICIAN STATEMENT I saw and evaluated the patient. I reviewed the resident's note and discussed the case with the resident. I agree with the resident's findings and plan as documented. SUBJECTIVE: Feels well - dysuria improving. Fever overnight. No CP/palpitations/ SOB OBJECTIVE: Afebrile, hemodynamically Stable. Last Vital Signs Temp Pulse Resp BP Pulse Ox 98.6 F 77 18 113/58 L 95 04/12/19 10:01 04/12/19 10:01 04/12/19 10:01 04/12/19 10:01 04/12/19 17:32 HEENT - Atraumatic, Nromocephalic. Heart - S1, S2, irregular Lungs - clear to auscultation Abdomen- Soft, non-tender. Bowel Sounds normal. Extremities - no calf tenderness. Laboratory Results - last 24 hr 04/11/19 04/11/19 04/11/19 18:22 18:22 18:22 WBC 17.1 H RBC 4.89 Hgb 14.5 Hct 43.5 MCV 88.8 MCH 29.7 MCHC 33.4 RDW 15.4 Plt Count 75 L MPV 9.7 D Absolute Neuts (auto) 15.2 H Neutrophils % 88.4 H Lymphocytes % 3.7 L D Monocytes % 7.5 Eosinophils % 0.0 Basophils % 0.4 Nucleated RBC % 0 PT with INR 13.50 H INR 1.14 H PTT (Actin FS) 31.8 Sodium 132 L Potassium 4.1 Chloride 98 Carbon Dioxide 25 Anion Gap 9 BUN 26.8 H Creatinine 1.7 H Est GFR (CKD-EPI)AfAm 45.68 Est GFR (CKD-EPI)NonAf 39.41 Random Glucose 164 H Lactic Acid Calcium 8.8 Magnesium Total Bilirubin 3.0 H AST 15 ALT 10 L Alkaline Phosphatase 80 Troponin I 0.06 H Total Protein 6.8 Albumin 3.7 Stool Occult Blood 04/11/19 04/12/19 04/12/19 18:22 07:10 07:10 WBC 13.7 H RBC 4.47 Hgb 13.3 Hct 39.8 MCV 89.2 MCH 29.8 MCHC 33.4 RDW 15.1 Plt Count 62 L MPV 10.6 Absolute Neuts (auto) 11.8 H Neutrophils % 85.6 H Lymphocytes % 4.1 L Monocytes % 9.9 Eosinophils % 0.1 D Basophils % 0.3 Nucleated RBC % 0 PT with INR INR PTT (Actin FS) Sodium 134 L Potassium 3.9 Chloride 101 Carbon Dioxide 25 Anion Gap 8 BUN 26.0 H Creatinine 1.3 Est GFR (CKD-EPI)AfAm 63.18 Est GFR (CKD-EPI)NonAf 54.51 Random Glucose 135 H Lactic Acid 1.9 Calcium 8.0 L Magnesium 1.9 Total Bilirubin 2.3 H AST 8 L ALT 7 L Alkaline Phosphatase 67 Troponin I Total Protein 5.9 L Albumin 3.1 L Stool Occult Blood 04/12/19 12:08 WBC RBC Hgb Hct MCV MCH MCHC RDW Plt Count MPV Absolute Neuts (auto) Neutrophils % Lymphocytes % Monocytes % Eosinophils % Basophils % Nucleated RBC % PT with INR INR PTT (Actin FS) Sodium Potassium Chloride Carbon Dioxide Anion Gap BUN Creatinine Est GFR (CKD-EPI)AfAm Est GFR (CKD-EPI)NonAf Random Glucose Lactic Acid Calcium Magnesium Total Bilirubin AST ALT Alkaline Phosphatase Troponin I Total Protein Albumin Stool Occult Blood Negative Current Medications Generic Name Dose Route Start Last Admin Trade Name Freq PRN Reason Stop Dose Admin Apixaban 5 mg 04/12/19 10:00 04/12/19 10:54 Eliquis - PO 5 mg BID [facility] Administration Aspirin 81 mg 04/12/19 10:00 04/12/19 10:00 Asa - PO 81 mg DAILY [facility] Administration Atorvastatin Calcium 10 mg 04/12/19 22:00 Lipitor - PO HS [facility] Ceftriaxone Sodium 1 gm/ 50 mls @ 100 mls/hr 04/12/19 10:00 04/12/19 10:15 Dextrose IVPB 100 mls/hr DAILY [facility] Administration Protocol Sodium Chloride 1,000 mls @ 50 mls/hr 04/12/19 15:15 04/12/19 17:14 Normal Saline - IV 04/13/19 15:04 50 mls/hr ASDIR [facility] Administration Mycophenolate Sodium 360 mg 04/11/19 23:14 04/12/19 10:00 Mycophenolic Acid PO 360 mg BID [facility] Administration Nifedipine 30 mg 04/12/19 10:00 04/12/19 10:00 Procardia Xl - PO 30 mg BID [facility] Administration Pantoprazole Sodium 40 mg 04/12/19 10:00 04/12/19 10:00 Protonix - PO 40 mg DAILY [facility] Administration Prednisone 5 mg 04/12/19 10:00 04/12/19 10:00 Deltasone - PO 5 mg DAILY [facility] Administration Tacrolimus 3 mg 04/11/19 23:15 04/12/19 10:00 Prograf PO 3 mg BID [facility] Administration Home Medications Medication Instructions Recorded Nifedipine [Nifedical Xl] 30 mg PO BID 08/24/16 Prednisone 5 mg PO DAILY 08/24/16 Tacrolimus [Prograf] 3 mg PO BID 08/24/16 Aspirin [ASA -] 81 mg PO DAILY 10/14/18 Atorvastatin Ca [Lipitor] 10 mg PO HS 10/14/18 Dapsone 100 mg PO DAILY 10/14/18 Mycophenolate Sodium [Mycophenolic 360 mg PO BID 10/14/18 Acid] Pantoprazole Sodium [Protonix -] 40 mg PO DAILY 10/14/18 Prednisone 5 mg PO DAILY 10/16/18 Ergocalciferol (Vitamin D2) 50,000 unit PO Q7D 04/12/19 [Vitamin D2] ASSESSMENT AND PLAN: 74 year old male with Hx of HTN, ESRD s/p kidney Tx 2001 and 2009, non- obstructive CAD, h/o TIA, and s/p TAVR 2015, and cardiac arrest 2014, presents with fever, dysuria, vomiting (non-bloody, non-bilious), found to be in Atrial Fibrillation. 1. Sepsis secondary to UTI Urine Cx - GNB Started Empirically on Ceftriaxone 2. Atrial Fibrillation - new onset. CXR - Cardiomegaly Seen by Cardiology and started on Eliquis. Echo requested. Aspirin held. 3. 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 No bleeding/bruising. 4. ALONSO on background ESRD s/p Bilateral Renal Transplants - Continue Prograf, Mycophenolate, and Prednsione. Nephrology consulted. Creat improved with IV hydration. Further recommendations as per Nephrology. 5. HTN - Continue Nifedipine. 6. GERD - Continue PPI. 7. Thickened GB wall and 1cm calculus in neck of GB on Abdominal US with Hyperbilirubinemia - Abdomen non-tender. GI consulted - recommends Surgery referral (will be done as out-patient) and Hepatitis work-up. Direct/Indirect Bilirubin requested. DVT Px - Eliquis.
[2019-04-12 20:46] LABS: HYALINE CASTS 1 /lpf (0-8); PH,URINE 5.5 (5.0-8.0); URINE APPEARANCE CLEAR; URINE BACTERIA 2.9 /hpf (NEGATIVE); URINE BILIRUBIN NEGATIVE (NEGATIVE); URINE COLOR YELLOW; URINE GLUCOSE (UA) NEGATIVE (NEGATIVE); URINE KETONE NEGATIVE (NEGATIVE); URINE LEUK ESTERASE 2+ (NEGATIVE); URINE NITRITE NEGATIVE (NEGATIVE); URINE PROTEIN TRACE (NEGATIVE); URINE RBC 2 /hpf (0-4); URINE WBC 26 /hpf (0-5)
[2019-04-12] MEDS ORDERED: ATORVASTATIN CA 10 MG TABLET (FP) PO SCH (22:00)
[2019-04-13 08:13] LABS: HEMATOCRIT 39.1 % (35.4-49); HEMOGLOBIN 13.4 GM/dL (11.7-16.9); MCH 29.9 pg (25.7-33.7); MCHC 34.3 g/dl (32.0-35.9); MEAN CELL VOLUME 87.1 fl (80-96); MEAN PLT VOLUME 9.6 fl (7.5-11.1); PLATELET COUNT 87 K/MM3 (134-434); RBC 4.48 M/mm3 (4.00-5.60); RDW 15.4 % (11.9-15.9); WHITE BLOOD COUNT 7.2 K/mm3 (4.0-10.0)
[2019-04-13 08:16] LABS: BILIRUBIN,DIRECT 0.4 mg/dL (0.0-0.2); BILIRUBIN,TOTAL 1.2 mg/dL (0.2-1); BLOOD UREA NITROGEN 26.9 mg/dL (7-18); CALCIUM 8.3 mg/dL (8.5-10.1); CREATININE 1.2 mg/dL (0.55-1.3); PHOSPHOROUS 2.3 mg/dL (2.5-4.9); POTASSIUM 3.8 mmol/L (3.5-5.1)
--- NOTE | 2019-04-13 09:10 | PN.GI ---
GI Progress Note Subjective: NO NEW COMPLAINTS - DENIES ABDOMINAL PAIN / NAUSEA / VOMITING/ HE HAS BEEN TOLERATING FULL DIET - Objective Vital Signs: Vital Signs Temperature 99.5 F 04/13/19 06:21 Pulse Rate 82 04/13/19 06:21 Respiratory Rate 18 04/13/19 06:21 Blood Pressure 123/69 04/13/19 06:21 O2 Sat by Pulse Oximetry (%) 98 04/12/19 21:00 Constitutional: Well Nourished, No Distress, Calm Eyes: Yes: WNL HENT: Yes: WNL Neck: Yes: WNL Cardiovascular: Yes: WNL, Regular Rate and Rhythm Respiratory: Yes: WNL, Regular, CTA Bilaterally Gastrointestinal Inspection: Yes: WNL ...Auscultate: Yes: Normoactive Bowel Sounds Extremities: Yes: WNL Edema: No Labs: CBC, BMP 04/13/19 06:45 04/13/19 06:45 INR, PTT INR 1.14 (0.83-1.09) H 04/11/19 18:22 Problem List - Problems (1) Elevated bilirubin Assessment/Plan: ULTRASOUND REVIEWED -- GB NECK STONE -- SURGERY EVALUATION HEPATITIS PANEL PENDING DIET TOLERATED Code(s): R17 - UNSPECIFIED JAUNDICE (2) Thickening of wall of gallbladder Code(s): K82.8 - OTHER SPECIFIED DISEASES OF GALLBLADDER
[2019-04-13] MEDS ORDERED: cefTRIAXone SODIUM 1 GM VIAL ONE (10:46)
[2019-04-13] MEDS ORDERED: DEXTROSE 5%-WATER - 50 ML IVPB ONE (10:46)
[2019-04-13] MEDS ORDERED: PT OWN MED DRAWER 7, Y5N ONE (10:46)
[2019-04-13] MEDS: NIFEdipine E.R. 30 MG TABLET (FP) PO SCH (10:51)
[2019-04-13] MEDS: APIXABAN 5 MG TABLET PO SCH (10:51)
[2019-04-13] MEDS: PANTOPRAZOLE 40 MG TABLET (FP) PO SCH (10:51)
[2019-04-13] MEDS: TACROLIMUS ANHYDROUS 1 MG CAPSULE PO SCH (10:52)
[2019-04-13] MEDS: predniSONE 5 MG TABLET (UD) PO SCH (10:52)
[2019-04-13] MEDS: MYCOPHENOLATE SODIUM 360 MG TABLET.DR PO SCH (10:52)
[2019-04-13] MEDS: CEFTRIAXONE 1 GM in DEXTROSE 5%-WATER - 50 ML IVPB SCH (10:53)
--- NOTE | 2019-04-13 11:22 | PN ---
Teaching Attending Note Name of Resident: Amelia Gonzalez ATTENDING PHYSICIAN STATEMENT I saw and evaluated the patient. I reviewed the resident's note and discussed the case with the resident. I agree with the resident's findings and plan as documented. SUBJECTIVE: Feels well - no further dysuria. Urine cleared up as per patient. No fever overnight. No CP/palpitations/SOB OBJECTIVE: Afebrile, hemodynamically Stable. Tmax 99.5 Last Vital Signs Temp Pulse Resp BP Pulse Ox 99.5 F 82 18 123/69 98 04/13/19 06:21 04/13/19 06:21 04/13/19 06:21 04/13/19 06:21 04/12/19 21:00 Heart - S1, S2, irregular Lungs - clear to auscultation Abdomen- Soft, transplant kidney palpable. Non-tender. Bowel Sounds normal. Extremities - no edema/calf tenderness. Laboratory Results - last 24 hr 04/11/19 04/12/19 04/12/19 18:22 12:08 20:00 WBC RBC Hgb Hct MCV MCH MCHC RDW Plt Count MPV Sodium 132 L Potassium 4.1 Chloride 98 Carbon Dioxide 25 Anion Gap 9 BUN 26.8 H Creatinine 1.7 H Est GFR (CKD-EPI)AfAm 45.68 Est GFR (CKD-EPI)NonAf 39.41 Random Glucose 164 H Calcium 8.8 Phosphorus Magnesium Total Bilirubin 3.0 H Direct Bilirubin AST 15 ALT 10 L Alkaline Phosphatase 80 Troponin I 0.06 H Total Protein 6.8 Albumin 3.7 Urine Color Yellow Urine Appearance Clear Urine pH 5.5 Ur Specific [place] 1.013 Urine Protein Trace Urine Glucose (UA) Negative Urine Ketones Negative Urine Blood Negative Urine Nitrite Negative Urine Bilirubin Negative Urine Urobilinogen 1.0 Ur Leukocyte Esterase 2+ H Urine WBC (Auto) 26 Urine RBC (Auto) 2 Urine Casts (Auto) 1 U Epithel Cells (Auto) 2.0 Urine Bacteria (Auto) 2.9 Stool Occult Blood Negative 04/13/19 04/13/19 06:45 06:45 WBC 7.2 RBC 4.48 Hgb 13.4 Hct 39.1 MCV 87.1 MCH 29.9 MCHC 34.3 RDW 15.4 Plt Count 87 L D MPV 9.6 Sodium 138 Potassium 3.8 Chloride 104 Carbon Dioxide 24 Anion Gap 10 BUN 26.9 H Creatinine 1.2 Est GFR (CKD-EPI)AfAm 69.60 Est GFR (CKD-EPI)NonAf 60.05 Random Glucose 122 H Calcium 8.3 L Phosphorus 2.3 L Magnesium 2.0 Total Bilirubin 1.2 H Direct Bilirubin 0.4 H AST 11 L ALT 9 L Alkaline Phosphatase 69 Troponin I Total Protein 6.0 L Albumin 3.0 L Urine Color Urine Appearance Urine pH Ur Specific [place] Urine Protein Urine Glucose (UA) Urine Ketones Urine Blood Urine Nitrite Urine Bilirubin Urine Urobilinogen Ur Leukocyte Esterase Urine WBC (Auto) Urine RBC (Auto) Urine Casts (Auto) U Epithel Cells (Auto) Urine Bacteria (Auto) Stool Occult Blood Current Medications Generic Name Dose Route Start Last Admin Trade Name Freq PRN Reason Stop Dose Admin Apixaban 5 mg 04/12/19 10:00 04/13/19 10:51 Eliquis - PO 5 mg BID [facility] Administration Atorvastatin Calcium 10 mg 04/12/19 22:00 04/12/19 21:11 Lipitor - PO 10 mg HS [facility] Administration Ceftriaxone Sodium 1 gm/ 50 mls @ 100 mls/hr 04/12/19 10:00 04/13/19 10:53 Dextrose IVPB 100 mls/hr DAILY [facility] Administration Protocol Sodium Chloride 1,000 mls @ 50 mls/hr 04/12/19 15:15 04/12/19 17:14 Normal Saline - IV 04/13/19 15:04 50 mls/hr ASDIR [facility] Administration Mycophenolate Sodium 360 mg 04/11/19 23:14 04/13/19 10:52 Mycophenolic Acid PO 360 mg BID [facility] Administration Nifedipine 30 mg 04/12/19 10:00 04/13/19 10:51 Procardia Xl - PO 30 mg BID [facility] Administration Pantoprazole Sodium 40 mg 04/12/19 10:00 04/13/19 10:51 Protonix - PO 40 mg DAILY [facility] Administration Prednisone 5 mg 04/12/19 10:00 04/13/19 10:52 Deltasone - PO 5 mg DAILY [facility] Administration Tacrolimus 3 mg 04/11/19 23:15 04/13/19 10:52 Prograf PO 3 mg BID [facility] Administration ASSESSMENT AND PLAN: 74 year old male with Hx of HTN, ESRD s/p kidney Tx 2001 and 2009, non- obstructive CAD, h/o TIA, and s/p TAVR 2015, and cardiac arrest 2014, presents with fever, dysuria, vomiting (non-bloody, non-bilious), found to be in Atrial Fibrillation. 1. Sepsis secondary to UTI, sepsis resolved. Urine Cx - Ecoli. Received 2 days of Ceftriaxone. To complete 5 additional days of cephalosporin as out-patient with Nephrology follow up at [facility]. 2. Atrial Fibrillation - new onset. CXR - Cardiomegaly Seen by Cardiology and started on Eliquis. Discussed with Dr. Gonsalves (Cardiology)re: Eliquis and Chronic Thrombocytopenia - he recommends continuing Eliquis. Aspirin held. Cardio out-patient follow up. 3. 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 Stable. No bleeding/bruising. 4. ALONSO on background ESRD s/p Bilateral Renal Transplants - Resolved with IV hydration. Continue Prograf, Mycophenolate, and Prednsione. Nephrology consulted. 5. HTN - Continue Nifedipine. 6. GERD - Continue PPI. 7. Thickened GB wall and 1cm calculus in neck of GB on Abdominal US with Hyperbilirubinemia - Abdomen non-tender. GI consulted - recommends Surgery referral (will be done as out-patient) and Hepatitis work-up. DBil 0.4. Medically stable for discharge pending repeat tropI. Cadio/GI follow up, Nephrology follow up at [facility], and referral to Surgery.
--- NOTE | 2019-04-13 12:28 | PN ---
Progress Note, Physician Chief Complaint: feeling better History of Present Illness: 74 year old male with a pmhx of htn, ESRD s/p kidney Tx 2001 and 2009, nonobs CAD, h/o TIA, and s/p TAVR 2015, and cardiac arrest 2014 admitted with fevers/ diarrhea/ and dysuria. Also noted two episodes of vomiting. Denies any chest pain, sob, or palpitations. No pnd, orthopnea or edema. Found to be in afib with rate control. Noted with CBD stone. Awaiting EGD/poss ERCP. - Current Medication List Current Medications: Active Medications Apixaban (Eliquis -) 5 mg PO BID [facility] Last Admin: 04/13/19 10:51 Dose: 5 mg Atorvastatin Calcium (Lipitor -) 10 mg PO HS [facility] Last Admin: 04/12/19 21:11 Dose: 10 mg Ceftriaxone Sodium 1 gm/ (Dextrose) 50 mls @ 100 mls/hr IVPB DAILY [facility]; Protocol Last Admin: 04/13/19 10:53 Dose: 100 mls/hr Sodium Chloride (Normal Saline -) 1,000 mls @ 50 mls/hr IV ASDIR [facility] Stop: 04/13/19 15:04 Last Admin: 04/12/19 17:14 Dose: 50 mls/hr Mycophenolate Sodium (Mycophenolic Acid) 360 mg PO BID [facility] Last Admin: 04/13/19 10:52 Dose: 360 mg Nifedipine (Procardia Xl -) 30 mg PO BID [facility] Last Admin: 04/13/19 10:51 Dose: 30 mg Pantoprazole Sodium (Protonix -) 40 mg PO DAILY [facility] Last Admin: 04/13/19 10:51 Dose: 40 mg Prednisone (Deltasone -) 5 mg PO DAILY [facility] Last Admin: 04/13/19 10:52 Dose: 5 mg Tacrolimus (Prograf) 3 mg PO BID [facility] Last Admin: 04/13/19 10:52 Dose: 3 mg - Objective Vital Signs: Vital Signs Temperature 99.5 F 04/13/19 06:21 Pulse Rate 82 04/13/19 06:21 Respiratory Rate 18 04/13/19 06:21 Blood Pressure 123/69 04/13/19 06:21 O2 Sat by Pulse Oximetry (%) 98 04/12/19 21:00 Constitutional: Yes: No Distress, Calm Eyes: Yes: Conjunctiva Clear, EOM Intact HENT: Yes: Normocephalic Neck: Yes: Supple Cardiovascular: Yes: Pulse Irregular Respiratory: Yes: CTA Bilaterally Gastrointestinal: Yes: Normal Bowel Sounds, Soft Musculoskeletal: Yes: WNL Extremities: Yes: WNL Edema: No Labs: CBC, BMP 04/13/19 06:45 04/13/19 06:45 INR, PTT INR 1.14 (0.83-1.09) H 04/11/19 18:22 Assessment/Plan 74 year old male with a pmhx of htn, ESRD s/p kidney Tx 2001 and 2009, nonobs CAD, h/o TIA, and s/p TAVR 2015, and cardiac arrest 2014 admitted with fevers/ diarrhea/ and dysuria. Also noted two episodes of vomiting. Denies any chest pain, sob, or palpitations. No pnd, orthopnea or edema. Found to be in afib with rate control. 1) Afib New afib in setting of possible infection. No cardiac complaints Started on AC with apixaban Would admit to tele for 24 hours and will see if any need for av flora blockers -Treat underlying illness and infection 2) GI There are no cardiac contraindications to EGD/ERCP. Hold Eliquis until stable. 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 follow plts.
[2019-04-13 14:02] VITALS: BP 143/68; PULSE 80; TEMP 98.3
--- NOTE | 2019-04-13 14:27 | PN ---
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 coli Vital Signs Temperature 98.3 F 04/13/19 14:00 Pulse Rate 80 04/13/19 14:00 Respiratory Rate 20 04/13/19 14:00 Blood Pressure 143/68 04/13/19 14:00 O2 Sat by Pulse Oximetry (%) 98 04/12/19 21:00 Intake & Output 04/10/19 04/11/19 04/12/19 04/13/19 23:59 23:59 23:59 23:59 Intake Total 200 950 Output Total 1500 Balance 200 -550 Weight 73.482 kg 74.162 kg NAD awake and alert RRR No LE edema CBC, BMP 04/13/19 06:45 04/13/19 06:45 Current Medications Atorvastatin Calcium (Lipitor -) 10 mg PO HS [facility] Last Admin: 04/12/19 21:11 Dose: 10 mg Ceftriaxone Sodium 1 gm/ (Dextrose) 50 mls @ 100 mls/hr IVPB DAILY [facility]; Protocol Last Admin: 04/13/19 10:53 Dose: 100 mls/hr Sodium Chloride (Normal Saline -) 1,000 mls @ 50 mls/hr IV ASDIR [facility] Stop: 04/13/19 15:04 Last Admin: 04/12/19 17:14 Dose: 50 mls/hr Mycophenolate Sodium (Mycophenolic Acid) 360 mg PO BID [facility] Last Admin: 04/13/19 10:52 Dose: 360 mg Nifedipine (Procardia Xl -) 30 mg PO BID [facility] Last Admin: 04/13/19 10:51 Dose: 30 mg Pantoprazole Sodium (Protonix -) 40 mg PO DAILY [facility] Last Admin: 04/13/19 10:51 Dose: 40 mg Potassium Phos/Sodium Phos (Phos-Nak Packet -) 1 packet PO TID [facility] Stop: 04/14/19 06:01 Prednisone (Deltasone -) 5 mg PO DAILY [facility] Last Admin: 04/13/19 10:52 Dose: 5 mg Tacrolimus (Prograf) 3 mg PO BID [facility] Last Admin: 04/13/19 10:52 Dose: 3 mg Impression 1. kidney transplant 2. ckd 3. gerd 4. dev 5. UTI 6. valve replacement 7. cad 8. hx of cardiac arrest Plan Renal function improved continue tacolimus, mycophenolate and prednisone as pt does not appear toxic. for transfer to [facility] for management of bacteremia and ERCP Trend renal function daily while here can maintain on gentle hydration Jax Noble DO
--- NOTE | 2019-04-13 14:28 | DS ---
Physical Exam: SUBJECTIVE: Patient seen and examined at bedside. Daughter at bedside. Without complaint. Denies dysuria or other complaint OBJECTIVE: Vital Signs Period Temp Pulse Resp BP Sys/Ko Pulse Ox Last 24 Hr 98.3 F-99.6 F 80-86 18-20 123-143/68-73 95-98 PHYSICAL EXAM GENERAL: The patient is AAOx3, in NAD HEAD: Normal with no signs of trauma. EYES: PERRL, extraocular movements intact, sclera anicteric, conjunctiva clear. ENT: Ears normal, nares patent, oropharynx clear without exudates, moist mucous membranes. NECK: Trachea midline, supple LUNGS: CTA b/l HEART: +irreg irreg ABDOMEN: Soft, nontender, nondistended, normoactive bowel sounds, no guarding EXTREMITIES: 2+ pt pulses, warm, well-perfused, no edema NEUROLOGICAL: Cranial nerves II through XII grossly intact. LABS Laboratory Results - last 24 hr 04/12/19 04/13/19 04/13/19 20:00 06:45 06:45 WBC 7.2 RBC 4.48 Hgb 13.4 Hct 39.1 MCV 87.1 MCH 29.9 MCHC 34.3 RDW 15.4 Plt Count 87 L D MPV 9.6 Sodium 138 Potassium 3.8 Chloride 104 Carbon Dioxide 24 Anion Gap 10 BUN 26.9 H Creatinine 1.2 Est GFR (CKD-EPI)AfAm 69.60 Est GFR (CKD-EPI)NonAf 60.05 Random Glucose 122 H Calcium 8.3 L Phosphorus 2.3 L Magnesium 2.0 Total Bilirubin 1.2 H Direct Bilirubin 0.4 H AST 11 L ALT 9 L Alkaline Phosphatase 69 Creatine Kinase 38 Troponin I 0.02 Total Protein 6.0 L Albumin 3.0 L Urine Color Yellow Urine Appearance Clear Urine pH 5.5 Ur Specific [place] 1.013 Urine Protein Trace Urine Glucose (UA) Negative Urine Ketones Negative Urine Blood Negative Urine Nitrite Negative Urine Bilirubin Negative Urine Urobilinogen 1.0 Ur Leukocyte Esterase 2+ H Urine WBC (Auto) 26 Urine RBC (Auto) 2 Urine Casts (Auto) 1 U Epithel Cells (Auto) 2.0 Urine Bacteria (Auto) 2.9 Microbiology 04/11/19 15:30 Urine - Urine Clean Catch Urine Culture - Final Escherichia Coli 04/11/19 18:22 Blood - Peripheral Venous Blood Culture - Preliminary NO GROWTH OBTAINED AFTER 24 HOURS, INCUBATION TO CONTINUE FOR 4 DAYS. 04/11/19 18:00 Blood - Peripheral Venous Blood Culture - Preliminary NO GROWTH OBTAINED AFTER 24 HOURS, INCUBATION TO CONTINUE FOR 4 DAYS. Laboratory Tests 04/11/19 04/11/19 04/12/19 18:22 18:22 07:10 WBC 17.1 H 13.7 H Hgb 14.5 13.3 Hct 43.5 39.8 Plt Count 75 L 62 L Sodium 132 L BUN 26.8 H Creatinine 1.7 H Random Glucose 164 H Total Bilirubin 3.0 H Direct Bilirubin ALT Troponin I 0.06 H 04/12/19 04/12/19 04/12/19 07:10 12:08 20:00 Plt Count Sodium 134 L BUN 26.0 H Creatinine 1.3 Random Glucose 135 H Total Bilirubin 2.3 H Direct Bilirubin Ur Leukocyte Esterase 2+ H Urine WBC (Auto) 26 Urine RBC (Auto) 2 Urine Casts (Auto) 1 U Epithel Cells (Auto) 2.0 Urine Bacteria (Auto) 2.9 Stool Occult Blood Negative Tacrolimus 04/13/19 04/13/19 04/13/19 06:45 06:45 06:45 WBC 7.2 Hgb 13.4 Hct 39.1 Plt Count 87 L D Sodium 138 BUN 26.9 H Creatinine 1.2 Random Glucose 122 H Total Bilirubin 1.2 H Direct Bilirubin 0.4 H AST 11 L ALT 9 L Troponin I 0.02 U Epithel Cells (Auto) Tacrolimus Pending Hep A IgM Ab Confirm 04/13/19 06:45 ALT Stool Occult Blood Tacrolimus Hep A IgM Ab Confirm Pending Hep Bs Antigen Pending Hep B Core IgM Ab Pending Hepatitis C Ab (EIA) Pending CXR: bilateral apical pleural thickening. uncoiled thoracic aorta. cardiomegaly. the right diaphragm is elevated. no evidence of PNA or CF. no pleural effusion or pneumothorax. s/p valve replacement. Abd sono: thickened GB with biliary sludge and a 1cm calculus within the neck of the gall bladder. there is no evidence of intra or extrahepatic biliary duct dilation. if acute cholecystitis is clinically suspected, a follow up HIDA scan is recommended. the liver is mildly heterogeneous in texture with no discrete intrahepatic masses seen. hepatopedal flow is documented in the main portal vein. pancreas is WNL. s/p L renal transplant. the transplant kidney is unremarkable with no evidence of hydronephrosis or acute pathology. the patient' s [place] right kidney is markedly atrophic. there is no evidence of AAA. the ivc is patent. EKG: +afib, vent rate 81bpm, atrial rate 70bpm, qtc 420ms HOSPITAL COURSE: Date of Admission:04/11/19 Date of Discharge: 04/13/19 Admit diagnosis: new onset afib 74 y/o M with PMH of B/L renal transplants (2001 and 2009; on immunosuppression) , cardiac arrest (2014), valve replacement (2015), UTI, HTN, who presented with a one day history of subjective fevers. States that on day prior to admission, he had multiple episodes of diarrhea, along with dysuria and hematuria. His diarrhea subsided on DOA with pepto-bismol. A/w 2 episodes of NBNB emesis and chills. Denies PAEZ, SOB, chest pain or pressure or other changes. During pt's hospital course, the following problems were addressed: 1. Sepsis 2/2 UTI On presentation, pt was found to have a white count of 17k. Tmax was 101F. His Ucx grew E.coli > 100,000 cfu. C+s pending. Was started on ceftriaxone 1g IVPB qd, completed 2 days of tx. Blood cx at our institution was (-). Upon access to [facility] chart, pt was bacteremic on 04/11 during [facility] visit with +blood cx with E.coli. Will send pt on continued on ceftriaxone however may benefit from ID consult, as hx is complicated with immunosuppression. 2. New onset atrial fibrillation EKG with afib, w/controlled rate. CXR revealed cardiomegaly. Pt was seen by cardiology team, and was started on eliquis however it was held in anticipation of surgical procedure/ ERCP. Asa was held. Recommend continued cardio outpt f/u after hospitalization. ECHO was not performed yet, and given pt's condition, for transfer prior to doing so. 3. Thickened GB wall and 1cm calculus in neck of GB on Abdominal US with Hyperbilirubinemia - Abdomen non-tender. GI consulted - recommended Surgery referral and Hepatitis work-up. DBil 0.4. Per GI, may also require ERCP, further imaging. Also with possible cholecystitis as per imaging, may be alternate source of pt gram (-) bacteremia. 4. Thrombocytopenia Per alternate documentation, pt with hx of ITP. May also have 2/2 marrow suppression from immunosuppressive meds. Without bleeding or bruising. 5. ALONSO on background ESRD s/p Bilateral Renal Transplants Pt was seen by nephro team at [facility] and given gentle IVF. cont'd on Prograf, Mycophenolate, and Prednisone 6. HTN - Continued on Nifedipine. 7. GERD - Continued on PPI. Considering complexity of pt's case, new onset afib, hx of past cardiac arrest, kidney transplant b/l, gram (-) bacteremia and need for continuity of care, pt to be transferred to [facility]. Accepting physician Dr. Bisi Spencer. Case also d/w Dr. Amador, transplant attending. Discharge Summary Reason For Visit: UTI/KIDNEY TRANSPLANT RECIPIENT Current Active Problems ALONSO (acute kidney injury) (Acute) CKD (chronic kidney disease) (Acute) Elevated bilirubin (Acute) Fever (Acute) Thickening of wall of gallbladder (Acute) UTI (urinary tract infection) (Acute) Condition: Improved - Instructions Diet, Activity, Other Instructions: Your visit You were in the hospital because you were found to have an irregular heart rhythm and a urinary tract infection. While you were here, you were treated with antibiotics. Your heart rate was controlled with medication and you were kept on a blood thinner to prevent clots. Medications 1)You were started on a blood thinner: eliquis. Continue to take this. Do not take aspirin or NSAID's (alleve, naproxen, etc.) 2) Please take Keflex 500 mg (1 pill) twice a day for your Urinary tract infection (UTI) for the next 5 days to complete the course. 3) Please continue your home medications. Care You were started on a blood thinner. Please be careful when walking to avoid injury, as this can cause bruising. If you develop shortness of breath, dizziness, vomit blood, or notice blood in your stool please go to the hospital. Follow up Please follow up with your transplant doctor at [facility]. ] Disposition: HOME - Home Medications Comprehensive Discharge Medication List: Ambulatory Orders Nifedipine [Nifedical Xl] 30 mg PO BID 08/24/16 Prednisone 5 mg PO DAILY 08/24/16 Tacrolimus [Prograf] 3 mg PO BID 08/24/16 Aspirin [ASA -] 81 mg PO DAILY 10/14/18 Atorvastatin Ca [Lipitor] 10 mg PO HS 10/14/18 Dapsone 100 mg PO DAILY 10/14/18 Mycophenolate Sodium [Mycophenolic Acid] 360 mg PO BID 10/14/18 Pantoprazole Sodium [Protonix -] 40 mg PO DAILY 10/14/18 Prednisone 5 mg PO DAILY 10/16/18 Ergocalciferol (Vitamin D2) [Vitamin D2] 50,000 unit PO Q14D 04/12/19 Cephalexin [Keflex] 500 mg PO BID #10 capsule 04/13/19 - Discharge Referral Referred to [facility] Med P.C.: No ATTENDING PHYSICIAN STATEMENT I saw and evaluated the patient. I reviewed the resident's note and discussed the case with the resident. I agree with the resident's findings and plan as documented. SUBJECTIVE: OBJECTIVE: ASSESSMENT AND PLAN:
[2019-04-13] MEDS ORDERED: NAPH,MB-DB/K PH,MBDB POWDER PACKET PO SCH (14:30)
--- NOTE | 2019-04-13 15:10 | DS ---
Physical Exam: SUBJECTIVE: Patient seen and examined at bedside. Daughter at bedside. Without complaint. Denies dysuria or other complaint OBJECTIVE: Vital Signs Period Temp Pulse Resp BP Sys/Ko Pulse Ox Last 24 Hr 98.3 F-99.6 F 80-86 18-20 123-143/68-73 95-98 PHYSICAL EXAM GENERAL: The patient is AAOx3, in NAD HEAD: Normal with no signs of trauma. EYES: PERRL, extraocular movements intact, sclera anicteric, conjunctiva clear. ENT: Ears normal, nares patent, oropharynx clear without exudates, moist mucous membranes. NECK: Trachea midline, supple LUNGS: CTA b/l HEART: +irreg irreg ABDOMEN: Soft, nontender, nondistended, normoactive bowel sounds, no guarding EXTREMITIES: 2+ pt pulses, warm, well-perfused, no edema NEUROLOGICAL: Cranial nerves II through XII grossly intact. LABS Laboratory Results - last 24 hr 04/12/19 04/13/19 04/13/19 20:00 06:45 06:45 WBC 7.2 RBC 4.48 Hgb 13.4 Hct 39.1 MCV 87.1 MCH 29.9 MCHC 34.3 RDW 15.4 Plt Count 87 L D MPV 9.6 Sodium 138 Potassium 3.8 Chloride 104 Carbon Dioxide 24 Anion Gap 10 BUN 26.9 H Creatinine 1.2 Est GFR (CKD-EPI)AfAm 69.60 Est GFR (CKD-EPI)NonAf 60.05 Random Glucose 122 H Calcium 8.3 L Phosphorus 2.3 L Magnesium 2.0 Total Bilirubin 1.2 H Direct Bilirubin 0.4 H AST 11 L ALT 9 L Alkaline Phosphatase 69 Creatine Kinase 38 Troponin I 0.02 Total Protein 6.0 L Albumin 3.0 L Urine Color Yellow Urine Appearance Clear Urine pH 5.5 Ur Specific [place] 1.013 Urine Protein Trace Urine Glucose (UA) Negative Urine Ketones Negative Urine Blood Negative Urine Nitrite Negative Urine Bilirubin Negative Urine Urobilinogen 1.0 Ur Leukocyte Esterase 2+ H Urine WBC (Auto) 26 Urine RBC (Auto) 2 Urine Casts (Auto) 1 U Epithel Cells (Auto) 2.0 Urine Bacteria (Auto) 2.9 Microbiology 04/11/19 15:30 Urine - Urine Clean Catch Urine Culture - Final Escherichia Coli 04/11/19 18:22 Blood - Peripheral Venous Blood Culture - Preliminary NO GROWTH OBTAINED AFTER 24 HOURS, INCUBATION TO CONTINUE FOR 4 DAYS. 04/11/19 18:00 Blood - Peripheral Venous Blood Culture - Preliminary NO GROWTH OBTAINED AFTER 24 HOURS, INCUBATION TO CONTINUE FOR 4 DAYS. Laboratory Tests 04/11/19 04/11/19 04/12/19 18:22 18:22 07:10 WBC 17.1 H 13.7 H Hgb 14.5 13.3 Hct 43.5 39.8 Plt Count 75 L 62 L Sodium 132 L BUN 26.8 H Creatinine 1.7 H Random Glucose 164 H Total Bilirubin 3.0 H Direct Bilirubin ALT Troponin I 0.06 H 04/12/19 04/12/19 04/12/19 07:10 12:08 20:00 Plt Count Sodium 134 L BUN 26.0 H Creatinine 1.3 Random Glucose 135 H Total Bilirubin 2.3 H Direct Bilirubin Ur Leukocyte Esterase 2+ H Urine WBC (Auto) 26 Urine RBC (Auto) 2 Urine Casts (Auto) 1 U Epithel Cells (Auto) 2.0 Urine Bacteria (Auto) 2.9 Stool Occult Blood Negative Tacrolimus 04/13/19 04/13/19 04/13/19 06:45 06:45 06:45 WBC 7.2 Hgb 13.4 Hct 39.1 Plt Count 87 L D Sodium 138 BUN 26.9 H Creatinine 1.2 Random Glucose 122 H Total Bilirubin 1.2 H Direct Bilirubin 0.4 H AST 11 L ALT 9 L Troponin I 0.02 U Epithel Cells (Auto) Tacrolimus Pending Hep A IgM Ab Confirm 04/13/19 06:45 ALT Stool Occult Blood Tacrolimus Hep A IgM Ab Confirm Pending Hep Bs Antigen Pending Hep B Core IgM Ab Pending Hepatitis C Ab (EIA) Pending CXR: bilateral apical pleural thickening. uncoiled thoracic aorta. cardiomegaly. the right diaphragm is elevated. no evidence of PNA or CF. no pleural effusion or pneumothorax. s/p valve replacement. Abd sono: thickened GB with biliary sludge and a 1cm calculus within the neck of the gall bladder. there is no evidence of intra or extrahepatic biliary duct dilation. if acute cholecystitis is clinically suspected, a follow up HIDA scan is recommended. the liver is mildly heterogeneous in texture with no discrete intrahepatic masses seen. hepatopedal flow is documented in the main portal vein. pancreas is WNL. s/p L renal transplant. the transplant kidney is unremarkable with no evidence of hydronephrosis or acute pathology. the patient' s [place] right kidney is markedly atrophic. there is no evidence of AAA. the ivc is patent. EKG: +afib, vent rate 81bpm, atrial rate 70bpm, qtc 420ms HOSPITAL COURSE: Date of Admission:04/11/19 Date of Discharge: 04/13/19 Admit diagnosis: new onset afib 74 y/o M with PMH of B/L renal transplants (2001 and 2009; on immunosuppression) , cardiac arrest (2014), valve replacement (2015), UTI, HTN, who presented with a one day history of subjective fevers. States that on day prior to admission, he had multiple episodes of diarrhea, along with dysuria and hematuria. His diarrhea subsided on DOA with pepto-bismol. A/w 2 episodes of NBNB emesis and chills. Denies PAEZ, SOB, chest pain or pressure or other changes. During pt's hospital course, the following problems were addressed: 1. Sepsis 2/2 UTI On presentation, pt was found to have a white count of 17k. Tmax was 101F. His Ucx grew E.coli > 100,000 cfu. C+s pending. Was started on ceftriaxone 1g IVPB qd, completed 2 days of tx. Blood cx at our institution was (-). Upon access to [facility] chart, pt was bacteremic on 04/11 during [facility] visit with +blood cx with E.coli. Will send pt on continued on ceftriaxone however may benefit from ID consult, as hx is complicated with immunosuppression. 2. New onset atrial fibrillation EKG with afib, w/controlled rate. CXR revealed cardiomegaly. Pt was seen by cardiology team, and was started on eliquis 5mg PO BID however it was held in anticipation of surgical procedure/ ERCP. Asa was held. Recommend continued cardio outpt f/u after hospitalization. ECHO was not performed yet, and given pt 's condition, for transfer prior to doing so. 3. Thickened GB wall and 1cm calculus in neck of GB on Abdominal US with Hyperbilirubinemia - Abdomen non-tender. GI consulted - recommended Surgery referral and Hepatitis work-up. DBil 0.4. Per GI, may also require ERCP, further imaging. Also with possible cholecystitis as per imaging, may be alternate source of pt gram (-) bacteremia. 4. Thrombocytopenia Per alternate documentation, pt with hx of ITP. May also have 2/2 marrow suppression from immunosuppressive meds. Without bleeding or bruising. 5. ALONSO on background ESRD s/p Bilateral Renal Transplants Pt was seen by nephro team at [facility] and given gentle IVF. cont'd on Prograf, Mycophenolate, and Prednisone 6. HTN - Continued on Nifedipine. 7. GERD - Continued on PPI. Considering complexity of pt's case, new onset afib, hx of past cardiac arrest, kidney transplant b/l, gram (-) bacteremia and need for continuity of care, pt to be transferred to [facility]. Accepting physician Dr. Bisi Spencer. Case also d/w Dr. Amador, transplant attending. Minutes to complete discharge: 45 Discharge Summary Reason For Visit: UTI/KIDNEY TRANSPLANT RECIPIENT Current Active Problems ALONSO (acute kidney injury) (Acute) Elevated bilirubin (Acute) Thickening of wall of gallbladder (Acute) UTI (urinary tract infection) (Acute) CKD (chronic kidney disease) (Chronic) Condition: Improved - Instructions Diet, Activity, Other Instructions: You are being transferred to [facility] for continued care. While you were at the hospital, you were found to have a urinary tract infection. You were treated with two days of antibiotics. You will continue these antibiotics at [facility], or you may be switched to different therapy as per the primary team or ID team at [facility], since you were found to have recent E.coli in your blood. You were also found to have atrial fibrillation that is new. You were started on a blood thinner by the cardiology team to prevent clots. However this was held in anticipation of a possible surgical and/or ERCP procedure. This decision will be made at [facility] by the primary medical team and/or GI team. You were found to have a stone at the neck of your gall bladder, and may need to have this removed. It is also possible that your gall bladder may be inflamed. You will need continued follow up at [facility] by the transplant team. Medications Upon transfer, you will be continued on IV ceftriaxone 1g IVPB qd. You may continue your home medications. Eliquis was started during this admission by the upsetter. It has currently been HELD for a possible surgical/ ERCP intervention. This will be decided at [facility]. Follow up We are referring you to the following physicians after your hospital stay at [facility]: 1. Cardiology follow up, Dr. Murray - within 1 week 2. Gastroenterology follow up, Dr. Palma - within 1 week 3. Nephrology follow up, Dr. Noble - within 1 week 4. Surgical referral - follow up - Dr. Choi, within 1 week If you develop chest pain or shortness of breath, please go to the hospital or contact your transplant doctor immediately. ] Referrals: Caleb Choi MD [Staff Physician] - 1 Week Behzad Murray MD [Staff Physician] - 1 Week Martha Palma DO [Staff Physician] - 1 Week Jax Noble MD [Staff Physician] - 1 Week Disposition: TRANSFER ACUTE CARE/OTHER HOSP - Home Medications Comprehensive Discharge Medication List: Ambulatory Orders Nifedipine [Nifedical Xl] 30 mg PO BID 08/24/16 Prednisone 5 mg PO DAILY 08/24/16 Tacrolimus [Prograf] 3 mg PO BID 08/24/16 Atorvastatin Ca [Lipitor] 10 mg PO HS 10/14/18 Mycophenolate Sodium [Mycophenolic Acid] 360 mg PO BID 10/14/18 Pantoprazole Sodium [Protonix -] 40 mg PO DAILY 10/14/18 Prednisone 5 mg PO DAILY 10/16/18 Ergocalciferol (Vitamin D2) [Vitamin D2] 50,000 unit PO Q14D 04/12/19 Ceftriaxone [Rocephin -] 1 gm IVPB DAILY vial 04/13/19 Dextrose 5%-Water - [D5w 50 ml Mini Bag] 1,000 ml IVPB DAILY ivpb 04/13/19 Naph,Mb-Db/K pH,Mbdb [PHOS-NaK PACKET -] 1 packet PO TID pow 04/13/19 This patient is new to me today: Yes Date on this admission: 04/13/19 Emergency Visit: Yes ED Registration Date: 04/11/19 Care time: The patient presented to the Emergency Department on the above date and was hospitalized for further evaluation of their emergent condition. Critical Care patient: No - Discharge Referral Referred to [facility] Med P.C.: No ATTENDING PHYSICIAN STATEMENT I saw and evaluated the patient. I reviewed the resident's note and discussed the case with the resident. I agree with the resident's findings and plan as documented. SUBJECTIVE: OBJECTIVE: ASSESSMENT AND PLAN:
[2019-04-14 04:10] LABS: HEP A AB, IGM Negative (Negative)
== END 2019-04-13 17:27 | disposition short-term general hospital (02) | DRG 872 ==
LOC: JER 15:00 → JERBED 20:16 → J7W 04-12 16:06
PROVIDERS: ADMIT Internal Medicine
DX: A41.51 Sepsis due to Escherichia coli [E. coli] (principal); N39.0 Urinary tract infection, site not specified; N17.9 Acute kidney failure, unspecified; D69.3 Immune thrombocytopenic purpura; Z94.0 Kidney transplant status; I48.91 Unspecified atrial fibrillation; D69.6 Thrombocytopenia, unspecified; K82.8 Other specified diseases of gallbladder; K80.20 Calculus of gallbladder without cholecystitis without obstruction; K21.9 Gastro-esophageal reflux disease without esophagitis; Z86.74 Personal history of sudden cardiac arrest; I11.9 Hypertensive heart disease without heart failure; N28.9 Disorder of kidney and ureter, unspecified; Z95.4 Presence of other heart-valve replacement; I25.10 Atherosclerotic heart disease of native coronary artery without angina pectoris; Z86.73 Personal history of transient ischemic attack (TIA), and cerebral infarction without residual deficits; I25.2 Old myocardial infarction
CPT/HCPCS: 36415; 71045-TC-FY; 76705-TC; 80048; 80053; 80074; 80076; 80197; 81003; 82272; 82550; 83605; 83735; 84100; 84484; 85025; 85027; 85610; 85730; 87040; 87086; 87186; 93005; 93010; 99285-25; J7030

== ENCOUNTER 2020-08-24 03:20 | Inpatient (IN) | payer OTHER, MEDICARE ==
[2020-08-24] MEDS ORDERED: AZITHROMYCIN IVPB 500 MG in DEXTROSE 5%-WATER - 250 ML IVPB ONE (04:31)
[2020-08-24] MEDS ORDERED: CEFTRIAXONE 1 GM in DEXTROSE 5%-WATER - 50 ML IVPB ONE (04:32)
[2020-08-24] MEDS ORDERED: DEXAMETHASONE SOD PHOSPHATE 10 MG/1 ML VIAL IVPUSH ONE ×2 (04:32→12:15)
[2020-08-24] MEDS ORDERED: SODIUM CHLORIDE 2,204 ML IV ONE (04:32)
[2020-08-24] MEDS ORDERED: AZITHROMYCIN IVPB 500 MG/250 ML BAG IVPB ONE (04:39)
[2020-08-24] MEDS ORDERED: CEFTRIAXONE 1 GM/50 ML BAG ONE (04:39)
[2020-08-24] MEDS ORDERED: DEXAMETHASONE SOD PHOSPHATE 10 MG/1 ML VIAL ONE (04:39)
[2020-08-24 04:46] LABS: BASO % 0.2 % (0-2.0); HEMATOCRIT 40.8 % (35.4-49); HEMOGLOBIN 13.8 GM/dL (11.7-16.9); LYMPH % 2.2 % (8-40); MCH 29.4 pg (25.7-33.7); MCHC 33.8 g/dl (32.0-35.9); MEAN PLT VOLUME 9.9 fl (7.5-11.1); MONO % 3.7 % (3.8-10.2); NEUT % 93.9 % (42.8-82.8); PLATELET COUNT 105 K/MM3 (134-434); RBC 4.69 M/mm3 (4.00-5.60); RDW 14.3 % (11.9-15.9); WHITE BLOOD COUNT 8.4 K/mm3 (4.0-10.0)
[2020-08-24 04:58] LABS: INR 1.53 (0.83-1.09); PROTHROMBIN TIME (PATIENT) 18.6 SEC (9.7-13.0)
[2020-08-24 05:00] LABS: ACTIVATED PTT 31.7 SECONDS (25.2-36.5)
[2020-08-24 05:05] LABS: CALCIUM 8.6 mg/dL (8.5-10.1)
[2020-08-24 05:06] LABS: ALBUMIN 3.3 g/dl (3.4-5.0); BLOOD UREA NITROGEN 22.8 mg/dL (7-18)
[2020-08-24 05:09] LABS: CREATININE 1.2 mg/dL (0.55-1.3)
[2020-08-24 05:10] LABS: BILIRUBIN,TOTAL 1.3 mg/dL (0.2-1); TOT PROT 5.9 g/dl (6.4-8.2)
[2020-08-24 05:13] LABS: VENOUS BASE EXCESS -1.9 mmol/L (-2-2); VENOUS PCO2 31.2 mmHg (38-52); VENOUS PH 7.447 (7.310-7.410)
[2020-08-24] MEDS ORDERED: ACETAMINOPHEN INJECTION 100 ML IVPB ONE (05:26)
[2020-08-24] MEDS ORDERED: ACETAMINOPHEN 1000 MG/100 ML VIAL (NON FORMULARY) IVPB ONE (05:26)
[2020-08-24 05:48] LABS: PLATELET ESTIMATE DECREASED
[2020-08-24 08:33] VITALS: BMI 27.6
[2020-08-24] MEDS: MUPIROCIN 2% TOPICAL OINTMENT FOR DECOLONIZATION NS SCH ×2 (13:24→21:43)
[2020-08-24] MEDS: APIXABAN 5 MG TABLET PO SCH ×2 (13:24→21:44)
[2020-08-24] MEDS ORDERED: HEPARIN NA (PORCINE) 5,000 UNITS/ML 1ML VIAL SQ SCH (14:00)
[2020-08-24] MEDS ORDERED: PT OWN MED DRAWER 7, Y5N ONE ×2 (15:04→15:56)
[2020-08-24] MEDS: TACROLIMUS ANHYDROUS 1 MG CAPSULE PO SCH ×2 (15:07→21:44)
[2020-08-24] MEDS: MYCOPHENOLATE SODIUM 360 MG TABLET.DR PO SCH ×2 (15:07→21:44)
[2020-08-24] MEDS: CHLORHEXIDINE GLUCONATE 4% CLEANSER FOR DECOLONIZATION TP SCH (21:44)
[2020-08-25 06:47] LABS: BASO % 0.2 % (0-2.0); HEMATOCRIT 41.9 % (35.4-49); HEMOGLOBIN 13.9 GM/dL (11.7-16.9); LYMPH % 1.4 % (8-40); MCH 28.7 pg (25.7-33.7); MCHC 33.2 g/dl (32.0-35.9); MEAN CELL VOLUME 86.5 fl (80-96); MEAN PLT VOLUME 9.6 fl (7.5-11.1); MONO % 3.8 % (3.8-10.2); NEUT % 94.6 % (42.8-82.8); PLATELET COUNT 118 K/MM3 (134-434); RBC 4.84 M/mm3 (4.00-5.60); RDW 14.6 % (11.9-15.9); WHITE BLOOD COUNT 13.4 K/mm3 (4.0-10.0)
[2020-08-25 06:53] LABS: INR 1.48 (0.83-1.09); PROTHROMBIN TIME (PATIENT) 17.7 SEC (9.7-13.0)
[2020-08-25 06:55] LABS: ACTIVATED PTT 31.8 SECONDS (25.2-36.5)
[2020-08-25 07:04] LABS: POTASSIUM 4.5 mmol/L (3.5-5.1)
[2020-08-25 07:16] LABS: ALBUMIN 2.8 g/dl (3.4-5.0); CALCIUM 8.4 mg/dL (8.5-10.1)
[2020-08-25 07:17] LABS: BLOOD UREA NITROGEN 23.9 mg/dL (7-18); MAGNESIUM 2.3 mg/dL (1.8-2.4)
[2020-08-25 07:20] LABS: BILIRUBIN,TOTAL 0.8 mg/dL (0.2-1); CREATININE 0.9 mg/dL (0.55-1.3); PHOSPHOROUS 3.7 mg/dL (2.5-4.9); TOT PROT 5.7 g/dl (6.4-8.2)
[2020-08-25 09:13] LABS: ANISOCYTOSIS 0; MACROCYTOSIS 0; PLATELET ESTIMATE DECREASED
[2020-08-25] MEDS ORDERED: PT OWN MED DRAWER 7, Y5N ONE (09:24)
[2020-08-25] MEDS ORDERED: DEXTROSE 5%-WATER 100 ML IVPB ONE (09:25)
[2020-08-25] MEDS: APIXABAN 5 MG TABLET PO SCH ×2 (09:51→21:14)
[2020-08-25] MEDS: DEXAMETHASONE SOD PHOSPHATE 4 MG/1 ML VIAL IVPUSH SCH (09:51)
[2020-08-25] MEDS: MYCOPHENOLATE SODIUM 360 MG TABLET.DR PO SCH ×2 (09:52→21:14)
[2020-08-25] MEDS: CEFTRIAXONE 2 GM in DEXTROSE 5%-WATER 2 GM/100 ML BAG IVPB SCH (09:53)
[2020-08-25] MEDS: AZITHROMYCIN IVPB 500 MG/250 ML BAG IVPB SCH (09:53)
[2020-08-25] MEDS: TACROLIMUS ANHYDROUS 1 MG CAPSULE PO SCH ×2 (09:53→21:14)
[2020-08-25] MEDS ORDERED: VANCOMYCIN 1 GRAM (PRE-DOCKED) 1,000 MG/250 ML BAG IVPB ONE (11:05)
[2020-08-25] MEDS ORDERED: REMDESIVIR 200 MG in SODIUM CHLORIDE 210 ML IVPB ONE (13:30)
[2020-08-25] MEDS: MUPIROCIN 2% TOPICAL OINTMENT FOR DECOLONIZATION NS SCH ×2 (14:12→21:14)
[2020-08-25] MEDS: CHLORHEXIDINE GLUCONATE 4% CLEANSER FOR DECOLONIZATION TP SCH (21:14)
[2020-08-26 07:13] LABS: BASO % 0.2 % (0-2.0); HEMATOCRIT 40.4 % (35.4-49); HEMOGLOBIN 13.5 GM/dL (11.7-16.9); LYMPH % 1.4 % (8-40); MCHC 33.5 g/dl (32.0-35.9); MEAN CELL VOLUME 86.5 fl (80-96); MEAN PLT VOLUME 9.4 fl (7.5-11.1); MONO % 4.8 % (3.8-10.2); NEUT % 93.6 % (42.8-82.8); PLATELET COUNT 131 K/MM3 (134-434); RBC 4.67 M/mm3 (4.00-5.60); RDW 14.8 % (11.9-15.9); WHITE BLOOD COUNT 12.9 K/mm3 (4.0-10.0)
[2020-08-26 07:23] LABS: POTASSIUM 4.6 mmol/L (3.5-5.1)
[2020-08-26 07:31] LABS: ALBUMIN 2.6 g/dl (3.4-5.0); BLOOD UREA NITROGEN 29.6 mg/dL (7-18); MAGNESIUM 2.4 mg/dL (1.8-2.4)
[2020-08-26 07:32] LABS: CALCIUM 8.1 mg/dL (8.5-10.1)
[2020-08-26 07:34] LABS: CREATININE 0.8 mg/dL (0.55-1.3); PHOSPHOROUS 3.4 mg/dL (2.5-4.9)
[2020-08-26 07:35] LABS: BILIRUBIN,TOTAL 0.8 mg/dL (0.2-1)
[2020-08-26 07:36] LABS: TOT PROT 5.7 g/dl (6.4-8.2)
[2020-08-26] MEDS ORDERED: PT OWN MED DRAWER 7, Y5N ONE ×4 (09:11→21:19)
[2020-08-26] MEDS ORDERED: DEXTROSE 5%-WATER 100 ML IVPB ONE (09:12)
[2020-08-26] MEDS: CEFTRIAXONE 2 GM in DEXTROSE 5%-WATER 2 GM/100 ML BAG IVPB SCH (09:32)
[2020-08-26] MEDS: AZITHROMYCIN IVPB 500 MG/250 ML BAG IVPB SCH (09:35)
[2020-08-26 09:36] LABS: ANISOCYTOSIS 0; MACROCYTOSIS 0; PLATELET ESTIMATE DECREASED
[2020-08-26] MEDS: DEXAMETHASONE SOD PHOSPHATE 4 MG/1 ML VIAL IVPUSH SCH (09:36)
[2020-08-26] MEDS: APIXABAN 5 MG TABLET PO SCH ×2 (09:38→21:58)
[2020-08-26] MEDS: TACROLIMUS ANHYDROUS 1 MG CAPSULE PO SCH ×2 (09:39→21:58)
[2020-08-26] MEDS: MYCOPHENOLATE SODIUM 360 MG TABLET.DR PO SCH (09:43)
[2020-08-26] MEDS: MUPIROCIN 2% TOPICAL OINTMENT FOR DECOLONIZATION NS SCH ×2 (10:01→21:58)
[2020-08-26] MEDS ORDERED: VANCOMYCIN 1 GRAM (PRE-DOCKED) 1,000 MG/250 ML BAG IVPB ONE (10:17)
[2020-08-26] MEDS: guaiFENesin 200 MG/10 ML 10 ML UNIT-DOSE CUPS PO PRN (12:26)
[2020-08-26] MEDS ORDERED: SODIUM CHLORIDE 0.45% 1,000 ML IV SCH (13:00)
[2020-08-26] MEDS: REMDESIVIR 100 MG in SODIUM CHLORIDE 230 ML IVPB SCH (14:47)
[2020-08-26] MEDS: CHLORHEXIDINE GLUCONATE 4% CLEANSER FOR DECOLONIZATION TP SCH (21:58)
[2020-08-27 07:09] LABS: HEMATOCRIT 41.1 % (35.4-49); HEMOGLOBIN 13.6 GM/dL (11.7-16.9); MCH 28.8 pg (25.7-33.7); MCHC 33.1 g/dl (32.0-35.9); MEAN CELL VOLUME 87.1 fl (80-96); MEAN PLT VOLUME 9.3 fl (7.5-11.1); PLATELET COUNT 131 K/MM3 (134-434); RBC 4.71 M/mm3 (4.00-5.60); RDW 14.9 % (11.9-15.9); WHITE BLOOD COUNT 12.5 K/mm3 (4.0-10.0)
[2020-08-27 07:23] LABS: POTASSIUM 4.7 mmol/L (3.5-5.1)
[2020-08-27 07:31] LABS: ALBUMIN 2.5 g/dl (3.4-5.0)
[2020-08-27 07:32] LABS: MAGNESIUM 2.2 mg/dL (1.8-2.4)
[2020-08-27 07:34] LABS: BILIRUBIN,TOTAL 0.8 mg/dL (0.2-1); CREATININE 0.7 mg/dL (0.55-1.3)
[2020-08-27 07:35] LABS: TOT PROT 5.5 g/dl (6.4-8.2)
[2020-08-27] MEDS ORDERED: DEXTROSE 5%-WATER 100 ML IVPB ONE (09:29)
[2020-08-27] MEDS: APIXABAN 5 MG TABLET PO SCH ×2 (09:39→21:35)
[2020-08-27] MEDS: CEFTRIAXONE 2 GM in DEXTROSE 5%-WATER 2 GM/100 ML BAG IVPB SCH (09:39)
[2020-08-27] MEDS: DEXAMETHASONE SOD PHOSPHATE 4 MG/1 ML VIAL IVPUSH SCH (09:39)
[2020-08-27] MEDS: MUPIROCIN 2% TOPICAL OINTMENT FOR DECOLONIZATION NS SCH ×2 (09:40→21:36)
[2020-08-27] MEDS: AZITHROMYCIN IVPB 500 MG/250 ML BAG IVPB SCH (09:40)
[2020-08-27] MEDS ORDERED: PT OWN MED DRAWER 7, Y5N ONE ×2 (09:43→12:48)
[2020-08-27] MEDS: TACROLIMUS ANHYDROUS 1 MG CAPSULE PO SCH ×2 (09:47→21:33)
[2020-08-27] MEDS ORDERED: ALPRAZolam 0.25 MG TABLET PO ONE (11:24)
[2020-08-27] MEDS: REMDESIVIR 100 MG in SODIUM CHLORIDE 230 ML IVPB SCH (14:53)
[2020-08-27] MEDS: PANTOPRAZOLE 40 MG TABLET PO SCH (14:55)
[2020-08-27] MEDS: CHLORHEXIDINE GLUCONATE 4% CLEANSER FOR DECOLONIZATION TP SCH (21:35)
[2020-08-28] MEDS ORDERED: LABETALOL HCL 5 MG/1 ML (100MG/20 ML VIAL) IVPUSH ONE (03:49)
[2020-08-28] MEDS: guaiFENesin 200 MG/10 ML 10 ML UNIT-DOSE CUPS PO PRN (04:49)
[2020-08-28 07:22] LABS: POTASSIUM 4.7 mmol/L (3.5-5.1)
[2020-08-28 07:30] LABS: CALCIUM 8.3 mg/dL (8.5-10.1)
[2020-08-28 07:31] LABS: ALBUMIN 2.4 g/dl (3.4-5.0); BLOOD UREA NITROGEN 26.5 mg/dL (7-18)
[2020-08-28 07:33] LABS: BILIRUBIN,TOTAL 0.8 mg/dL (0.2-1); TOT PROT 5.2 g/dl (6.4-8.2)
[2020-08-28 07:34] LABS: CREATININE 0.7 mg/dL (0.55-1.3)
[2020-08-28] MEDS ORDERED: DEXTROSE 5%-WATER 100 ML IVPB ONE (09:09)
[2020-08-28] MEDS: AZITHROMYCIN IVPB 500 MG/250 ML BAG IVPB SCH (09:12)
[2020-08-28] MEDS: DEXAMETHASONE SOD PHOSPHATE 4 MG/1 ML VIAL IVPUSH SCH (09:13)
[2020-08-28] MEDS: CEFTRIAXONE 2 GM in DEXTROSE 5%-WATER 2 GM/100 ML BAG IVPB SCH (09:13)
[2020-08-28] MEDS: APIXABAN 5 MG TABLET PO SCH ×2 (09:13→22:39)
[2020-08-28] MEDS: MUPIROCIN 2% TOPICAL OINTMENT FOR DECOLONIZATION NS SCH ×2 (09:17→22:39)
[2020-08-28] MEDS ORDERED: PT OWN MED DRAWER 7, Y5N ONE (09:19)
[2020-08-28] MEDS: TACROLIMUS ANHYDROUS 1 MG CAPSULE PO SCH ×2 (09:20→22:39)
[2020-08-28] MEDS: PANTOPRAZOLE 40 MG TABLET PO SCH (09:32)
[2020-08-28] MEDS: REMDESIVIR 100 MG in SODIUM CHLORIDE 230 ML IVPB SCH (13:55)
[2020-08-28] MEDS: CHLORHEXIDINE GLUCONATE 4% CLEANSER FOR DECOLONIZATION TP SCH (22:39)
[2020-08-28] MEDS ORDERED: NIFEdipine 10 MG CAPSULE (FP) PO ONE (23:00)
[2020-08-29] MEDS: NIFEdipine E.R. 30 MG TABLET PO SCH ×2 (00:41→10:02)
[2020-08-29] MEDS ORDERED: hydrALAZINE HCL 20 MG/ML VIAL IVPUSH ONE (02:06)
[2020-08-29] MEDS ORDERED: NITROGLYCERIN 25MG/D5W 250ML 25 MG/250 ML ML IVPB SCH (02:30)
[2020-08-29] MEDS ORDERED: NITROPRUSSIDE SODIUM 50,000 MCG in DEXTROSE 5%-WATER - 248 ML IVPB SCH (03:00)
[2020-08-29] MEDS ORDERED: NIFEdipine E.R. 30 MG TABLET PO ONE (05:00)
[2020-08-29 07:29] LABS: BASO % 0.2 % (0-2.0); HEMATOCRIT 40.9 % (35.4-49); HEMOGLOBIN 13.5 GM/dL (11.7-16.9); LYMPH % 2.2 % (8-40); MCH 28.8 pg (25.7-33.7); MEAN CELL VOLUME 87.3 fl (80-96); MEAN PLT VOLUME 9.1 fl (7.5-11.1); MONO % 4.3 % (3.8-10.2); NEUT % 93.3 % (42.8-82.8); PLATELET COUNT 120 K/MM3 (134-434); RBC 4.69 M/mm3 (4.00-5.60); RDW 14.7 % (11.9-15.9); WHITE BLOOD COUNT 10.2 K/mm3 (4.0-10.0)
[2020-08-29 07:56] LABS: POTASSIUM 4.7 mmol/L (3.5-5.1)
[2020-08-29 07:59] LABS: CALCIUM 8.3 mg/dL (8.5-10.1)
[2020-08-29 08:00] LABS: ALBUMIN 2.4 g/dl (3.4-5.0); BLOOD UREA NITROGEN 25.2 mg/dL (7-18); MAGNESIUM 2.1 mg/dL (1.8-2.4)
[2020-08-29 08:03] LABS: CREATININE 0.7 mg/dL (0.55-1.3); PHOSPHOROUS 2.8 mg/dL (2.5-4.9)
[2020-08-29 08:04] LABS: TOT PROT 5.4 g/dl (6.4-8.2)
[2020-08-29] MEDS ORDERED: PT OWN MED DRAWER 7, Y5N ONE ×3 (09:26→22:56)
[2020-08-29] MEDS ORDERED: DEXTROSE 5%-WATER 100 ML IVPB ONE (09:26)
[2020-08-29] MEDS ORDERED: NIFEdipine E.R. 30 MG TABLET PO SCH (10:00)
[2020-08-29] MEDS: DEXAMETHASONE SOD PHOSPHATE 4 MG/1 ML VIAL IVPUSH SCH (10:02)
[2020-08-29] MEDS: PANTOPRAZOLE 40 MG TABLET PO SCH (10:02)
[2020-08-29] MEDS: APIXABAN 5 MG TABLET PO SCH (10:02)
[2020-08-29] MEDS: TACROLIMUS ANHYDROUS 1 MG CAPSULE PO SCH (10:02)
[2020-08-29] MEDS: CEFTRIAXONE 2 GM in DEXTROSE 5%-WATER 2 GM/100 ML BAG IVPB SCH (10:02)
[2020-08-29] MEDS: AZITHROMYCIN IVPB 500 MG/250 ML BAG IVPB SCH (10:02)
[2020-08-29] MEDS: guaiFENesin 200 MG/10 ML 10 ML UNIT-DOSE CUPS PO PRN (10:26)
[2020-08-29] MEDS ORDERED: guaiFENesin 200 MG/10 ML 10 ML UNIT-DOSE CUPS PO PRN (10:51)
[2020-08-29 12:24] LABS: ANISOCYTOSIS 0; HELMET CELLS 0; HOWELL-JOLLY BODIES 0; MACROCYTOSIS 0; OVALOCYTE 0; PLATELET ESTIMATE DECREASED; ROULEAU 0; SICKELED CELLS 0; TARGET CELLS 0; TEAR DROP CELLS 0; TOXIC GRANULATION 0
[2020-08-29] MEDS ORDERED: REMDESIVIR 100 MG in SODIUM CHLORIDE 230 ML IVPB SCH (14:00)
[2020-08-30] MEDS: CHLORHEXIDINE GLUCONATE 4% CLEANSER FOR DECOLONIZATION TP SCH ×2 (00:31→22:10)
[2020-08-30] MEDS: APIXABAN 5 MG TABLET PO SCH ×3 (00:31→22:10)
[2020-08-30] MEDS: TACROLIMUS ANHYDROUS 1 MG CAPSULE PO SCH ×3 (00:32→22:11)
[2020-08-30 08:01] LABS: POTASSIUM 4.9 mmol/L (3.5-5.1)
[2020-08-30 08:12] LABS: ALBUMIN 2.7 g/dl (3.4-5.0); CALCIUM 8.4 mg/dL (8.5-10.1)
[2020-08-30 08:15] LABS: CREATININE 1.1 mg/dL (0.55-1.3)
[2020-08-30 08:16] LABS: BILIRUBIN,TOTAL 1.6 mg/dL (0.2-1); TOT PROT 5.9 g/dl (6.4-8.2)
[2020-08-30 08:33] LABS: BASO % 0.1 % (0-2.0); EOS % 0.1 % (0-4.5); HEMATOCRIT 42.1 % (35.4-49); HEMOGLOBIN 13.9 GM/dL (11.7-16.9); MCH 28.7 pg (25.7-33.7); MEAN CELL VOLUME 87.1 fl (80-96); MONO % 5.2 % (3.8-10.2); NEUT % 92.6 % (42.8-82.8); PLATELET COUNT 120 K/MM3 (134-434); RBC 4.83 M/mm3 (4.00-5.60); RDW 14.5 % (11.9-15.9); WHITE BLOOD COUNT 10.8 K/mm3 (4.0-10.0)
[2020-08-30] MEDS ORDERED: DEXTROSE 5%-WATER 100 ML IVPB ONE (09:16)
[2020-08-30] MEDS ORDERED: PT OWN MED DRAWER 7, Y5N ONE (09:18)
[2020-08-30] MEDS ORDERED: AZITHROMYCIN IVPB 500 MG/250 ML BAG IVPB SCH (10:00)
[2020-08-30 10:03] LABS: ANISOCYTOSIS 0; MACROCYTOSIS 0; PLATELET ESTIMATE DECREASED
[2020-08-30] MEDS: DEXAMETHASONE SOD PHOSPHATE 4 MG/1 ML VIAL IVPUSH SCH (10:31)
[2020-08-30] MEDS: CEFTRIAXONE 2 GM in DEXTROSE 5%-WATER 100 ML IVPB SCH (10:31)
[2020-08-30] MEDS: NIFEdipine E.R. 30 MG TABLET PO SCH (10:32)
[2020-08-30] MEDS: PANTOPRAZOLE 40 MG TABLET PO SCH (10:32)
[2020-08-30] MEDS ORDERED: SODIUM CHLORIDE 1,000 ML IV SCH (11:00)
[2020-08-31 08:09] LABS: POTASSIUM 4.6 mmol/L (3.5-5.1)
[2020-08-31 08:14] LABS: CALCIUM 7.9 mg/dL (8.5-10.1)
[2020-08-31 08:15] LABS: ALBUMIN 2.5 g/dl (3.4-5.0)
[2020-08-31 08:18] LABS: CREATININE 0.8 mg/dL (0.55-1.3)
[2020-08-31 08:19] LABS: BILIRUBIN,TOTAL 1.2 mg/dL (0.2-1); TOT PROT 5.4 g/dl (6.4-8.2)
[2020-08-31] MEDS: DEXAMETHASONE SOD PHOSPHATE 4 MG/1 ML VIAL IVPUSH SCH (10:00)
[2020-08-31] MEDS ORDERED: DEXTROSE 5%-WATER 100 ML IVPB ONE (10:11)
[2020-08-31] MEDS ORDERED: PT OWN MED DRAWER 7, Y5N ONE (10:13)
[2020-08-31] MEDS: CEFTRIAXONE 2 GM in DEXTROSE 5%-WATER 100 ML IVPB SCH (10:28)
[2020-08-31] MEDS: APIXABAN 5 MG TABLET PO SCH ×2 (10:29→21:31)
[2020-08-31] MEDS: NIFEdipine E.R. 30 MG TABLET PO SCH (10:29)
[2020-08-31] MEDS: PANTOPRAZOLE 40 MG TABLET PO SCH (10:29)
[2020-08-31] MEDS: TACROLIMUS ANHYDROUS 1 MG CAPSULE PO SCH ×2 (10:30→21:32)
[2020-08-31] MEDS: CHLORHEXIDINE GLUCONATE 4% CLEANSER FOR DECOLONIZATION TP SCH (21:32)
[2020-09-01 06:35] LABS: BASO % 0.1 % (0-2.0); EOS % 0.3 % (0-4.5); HEMATOCRIT 38.5 % (35.4-49); HEMOGLOBIN 12.9 GM/dL (11.7-16.9); MCH 29.1 pg (25.7-33.7); MCHC 33.4 g/dl (32.0-35.9); MEAN PLT VOLUME 8.2 fl (7.5-11.1); MONO % 4.2 % (3.8-10.2); NEUT % 91.4 % (42.8-82.8); PLATELET COUNT 67 K/MM3 (134-434); RBC 4.42 M/mm3 (4.00-5.60); RDW 14.4 % (11.9-15.9); WHITE BLOOD COUNT 9.7 K/mm3 (4.0-10.0)
[2020-09-01 06:44] LABS: POTASSIUM 4.4 mmol/L (3.5-5.1)
[2020-09-01 06:47] LABS: ALBUMIN 2.4 g/dl (3.4-5.0); BLOOD UREA NITROGEN 23.7 mg/dL (7-18); CALCIUM 7.8 mg/dL (8.5-10.1)
[2020-09-01 06:48] LABS: MAGNESIUM 1.7 mg/dL (1.8-2.4)
[2020-09-01 06:50] LABS: CREATININE 0.7 mg/dL (0.55-1.3)
[2020-09-01 06:51] LABS: BILIRUBIN,TOTAL 1.2 mg/dL (0.2-1); PHOSPHOROUS 2.3 mg/dL (2.5-4.9); TOT PROT 5.1 g/dl (6.4-8.2)
[2020-09-01] MEDS ORDERED: PT OWN MED DRAWER 7, Y5N ONE ×3 (09:07→20:00)
[2020-09-01] MEDS: TACROLIMUS ANHYDROUS 1 MG CAPSULE PO SCH ×2 (09:12→22:12)
[2020-09-01] MEDS: PANTOPRAZOLE 40 MG TABLET PO SCH (09:12)
[2020-09-01] MEDS: DEXAMETHASONE SOD PHOSPHATE 4 MG/1 ML VIAL IVPUSH SCH (09:13)
[2020-09-01] MEDS: NIFEdipine E.R. 30 MG TABLET PO SCH (09:13)
[2020-09-01] MEDS: APIXABAN 5 MG TABLET PO SCH ×2 (09:13→21:59)
[2020-09-01 11:13] LABS: ANISOCYTOSIS 1+; MACROCYTOSIS 1+; PLATELET ESTIMATE DECREASED
[2020-09-01] MEDS ORDERED: MAGNESIUM SULF 50% (8.12 MEQ/2 ML-1 GM VIAL) IVPB ONE ×2 (11:48→16:28)
[2020-09-01] MEDS ORDERED: NAPH,MB-DB/K PH,MBDB POWDER PACKET PO ONE (11:48)
[2020-09-01 13:35] LABS: BASO % 0.2 % (0-2.0); EOS % 0.2 % (0-4.5); HEMATOCRIT 40.5 % (35.4-49); LYMPH % 1.3 % (8-40); MCH 28.2 pg (25.7-33.7); MCHC 32.1 g/dl (32.0-35.9); MEAN CELL VOLUME 87.6 fl (80-96); MEAN PLT VOLUME 8.7 fl (7.5-11.1); MONO % 2.6 % (3.8-10.2); NEUT % 95.7 % (42.8-82.8); PLATELET COUNT 69 K/MM3 (134-434); RBC 4.62 M/mm3 (4.00-5.60); RDW 14.5 % (11.9-15.9); WHITE BLOOD COUNT 12.2 K/mm3 (4.0-10.0)
[2020-09-01 14:49] LABS: ANISOCYTOSIS 0; MACROCYTOSIS 0; PLATELET ESTIMATE DECREASED
[2020-09-01] MEDS: CHLORHEXIDINE GLUCONATE 4% CLEANSER FOR DECOLONIZATION TP SCH (21:59)
[2020-09-02 07:38] LABS: BASO % 0.1 % (0-2.0); EOS % 0.4 % (0-4.5); HEMATOCRIT 39.3 % (35.4-49); HEMOGLOBIN 12.9 GM/dL (11.7-16.9); LYMPH % 3.9 % (8-40); MCH 28.8 pg (25.7-33.7); MCHC 32.8 g/dl (32.0-35.9); MONO % 3.1 % (3.8-10.2); NEUT % 92.5 % (42.8-82.8); PLATELET COUNT 54 K/MM3 (134-434); RBC 4.47 M/mm3 (4.00-5.60); RDW 14.6 % (11.9-15.9); WHITE BLOOD COUNT 10.9 K/mm3 (4.0-10.0)
[2020-09-02 07:43] LABS: POTASSIUM 4.2 mmol/L (3.5-5.1)
[2020-09-02 07:52] LABS: ALBUMIN 2.3 g/dl (3.4-5.0); CALCIUM 7.8 mg/dL (8.5-10.1)
[2020-09-02 07:53] LABS: BLOOD UREA NITROGEN 25.9 mg/dL (7-18); PHOSPHOROUS 2.1 mg/dL (2.5-4.9)
[2020-09-02 07:55] LABS: BILIRUBIN,TOTAL 1.2 mg/dL (0.2-1); TOT PROT 5.1 g/dl (6.4-8.2)
[2020-09-02 07:56] LABS: CREATININE 0.8 mg/dL (0.55-1.3)
[2020-09-02] MEDS ORDERED: PT OWN MED DRAWER 7, Y5N ONE ×2 (09:24→20:05)
[2020-09-02] MEDS: DEXAMETHASONE SOD PHOSPHATE 4 MG/1 ML VIAL IVPUSH SCH (09:27)
[2020-09-02] MEDS: APIXABAN 5 MG TABLET PO SCH (09:33)
[2020-09-02] MEDS: TACROLIMUS ANHYDROUS 1 MG CAPSULE PO SCH ×2 (09:34→21:22)
[2020-09-02] MEDS: PANTOPRAZOLE 40 MG TABLET PO SCH (09:34)
[2020-09-02] MEDS: NIFEdipine E.R. 30 MG TABLET PO SCH (09:35)
[2020-09-02 12:13] LABS: ANISOCYTOSIS 0; MACROCYTOSIS 0; PLATELET ESTIMATE DECREASED
[2020-09-02] MEDS ORDERED: NAPH,MB-DB/K PH,MBDB POWDER PACKET PO ONE (15:48)
[2020-09-02 19:48] VITALS: BP 143/76; PULSE 84; TEMP 98.1
[2020-09-02] MEDS: CHLORHEXIDINE GLUCONATE 4% CLEANSER FOR DECOLONIZATION TP SCH (21:22)
== END 2020-09-03 01:30 | disposition short-term general hospital (02) | DRG 177 ==
LOC: JER 03:20 → JERBED 05:47 → JICU 08:03 → J4W 08-30 06:37
PROVIDERS: ADMIT Internal Medicine Pulmonary Disease; ATTEND Internal Medicine
PROC: 8E0ZXY6 Isolation (ICD-10-PCS; 2020-08-24)
PROC: XW13325 Transfusion of Convalescent Plasma (Nonautologous) into Peripheral Vein, Percutaneous Approach, New Technology Group 5 (ICD-10-PCS; principal; 2020-08-25)
PROC: XW033E5 Introduction of Remdesivir Anti-infective into Peripheral Vein, Percutaneous Approach, New Technology Group 5 (ICD-10-PCS; 2020-08-25)
DX: U07.1 COVID-19 (principal); J12.89 Other viral pneumonia; J96.01 Acute respiratory failure with hypoxia; Z94.0 Kidney transplant status; E87.3 Alkalosis; N39.0 Urinary tract infection, site not specified; I24.8 Other forms of acute ischemic heart disease; E78.5 Hyperlipidemia, unspecified; K21.9 Gastro-esophageal reflux disease without esophagitis; I25.10 Atherosclerotic heart disease of native coronary artery without angina pectoris; D69.6 Thrombocytopenia, unspecified; I12.9 Hypertensive chronic kidney disease with stage 1 through stage 4 chronic kidney disease, or unspecified chronic kidney disease; N18.9 Chronic kidney disease, unspecified; I35.0 Nonrheumatic aortic (valve) stenosis; I25.2 Old myocardial infarction; Z95.2 Presence of prosthetic heart valve; Z86.73 Personal history of transient ischemic attack (TIA), and cerebral infarction without residual deficits; Z95.5 Presence of coronary angioplasty implant and graft; Z86.718 Personal history of other venous thrombosis and embolism
CPT/HCPCS: 36415; 36430; 71045-TC-FY; 80053; 80197; 82728; 82803; 83605; 83615; 83735; 84100; 84484; 85025; 85027; 85379; 85610; 85651; 85730; 86140; 86850; 86900; 86901; 87040; 87070; 87205; 87899; 93005; 93010; 99285-25; C9803; J0131; J1100; P9017; U0003

== ENCOUNTER 2022-07-21 20:28 | Inpatient (IN) | payer OTHER, MEDICARE ==
[2022-07-21] MEDS ORDERED: guaiFENesin/D-METHORPHAN HB 10 ML UNIT-DOSE CUPS PO ONE (22:09)
[2022-07-21] MEDS ORDERED: guaiFENesin/D-METHORPHAN HB 10 ML UNIT-DOSE CUPS ONE (22:18)
[2022-07-21] MEDS ORDERED: ACETAMINOPHEN 1000 MG/100 ML BAG IVPB ONE (22:31)
[2022-07-21] MEDS ORDERED: ACETAMINOPHEN INJECTION 100 ML IVPB ONE (22:37)
[2022-07-21 22:45] LABS: BASO % 0.4 % (0-2.0); EOS % 0.1 % (0-4.5); HEMATOCRIT 42.7 % (35.4-49); HEMOGLOBIN 13.8 GM/dL (11.7-16.9); LYMPH % 2.6 % (8-40); MCH 28.3 pg (25.7-33.7); MCHC 32.3 g/dl (32.0-35.9); MEAN CELL VOLUME 87.8 fl (80-96); MEAN PLT VOLUME 8.9 fl (7.5-11.1); MONO % 7.5 % (3.8-10.2); NEUT % 89.4 % (42.8-82.8); PLATELET COUNT 101 10^3/uL (134-434); RBC 4.86 M/mm3 (4.00-5.60); RDW 16.7 % (11.9-15.9); WHITE BLOOD COUNT 12.1 K/mm3 (4.0-10.0)
[2022-07-21 22:49] LABS: EPI CELLS >36 /uL (0-25.1); HYALINE CASTS 4 /uL (0-3.1); URINE APPEARANCE CLOUDY; URINE BACTERIA 44 /uL (0-1359); URINE BILIRUBIN 1+ (NEGATIVE); URINE COLOR DK YELLOW; URINE GLUCOSE (UA) NEGATIVE (NEGATIVE); URINE KETONE TRACE (NEGATIVE); URINE LEUK ESTERASE 2+ (NEGATIVE); URINE NITRITE NEGATIVE (NEGATIVE); URINE PROTEIN 3+ (NEGATIVE); URINE RBC 103 /uL (0-23.9); URINE WBC 264 /uL (0-25.8)
[2022-07-21 22:50] LABS: INR 1.48 (0.83-1.09); PROTHROMBIN TIME (PATIENT) 17.1 SEC (9.7-13.0)
[2022-07-21 22:52] LABS: VENOUS BASE EXCESS -0.4 mmol/L (-2-2); VENOUS O2 SATURATION 86.2 % (70-80); VENOUS PH 7.422 (7.310-7.410)
[2022-07-21 22:53] LABS: ACTIVATED PTT 31.3 SECONDS (25.2-36.5)
[2022-07-21 23:06] LABS: ALBUMIN 3.9 g/dl (3.4-5.0); BLOOD UREA NITROGEN 17.7 mg/dL (7-18); MAGNESIUM 1.8 mg/dL (1.8-2.4)
[2022-07-21 23:09] LABS: CREATININE 1.3 mg/dL (0.55-1.3)
[2022-07-21 23:10] LABS: BILIRUBIN,TOTAL 3.2 mg/dL (0.2-1); TOT PROT 6.7 g/dl (6.4-8.2)
[2022-07-21 23:14] LABS: N-TERMINAL BNP 4737.4 pg/ml (5-450)
[2022-07-21] MEDS ORDERED: PIPERACILLIN/TAZOB 3.375 GM 3.375 GM in DEXTROSE 5%-WATER - 50 ML IVPB ONE (23:21)
[2022-07-21] MEDS ORDERED: PIPERACILLIN/TAZOB 3.375 GM 3.375 GM/50 ML BAG IVPB ONE (23:27)
[2022-07-22] MEDS: AZITHROMYCIN IVPB 500 MG/250 ML BAG IVPB SCH (06:05)
[2022-07-22] MEDS: FUROSEMIDE 40 MG TABLET (FP) PO SCH (06:05)
[2022-07-22] MEDS ORDERED: FUROSEMIDE 40 MG TABLET (FP) ONE (06:10)
[2022-07-22] MEDS ORDERED: AZITHROMYCIN IVPB 500 MG/250 ML BAG IVPB ONE (06:11)
[2022-07-22] MEDS: INSULIN SLIDING SCALE (NOVOLOG) 1 VIAL SQ SCH ×4 (06:26→22:42)
[2022-07-22 07:25] LABS: CALCIUM 8.5 mg/dL (8.5-10.1)
[2022-07-22 07:26] LABS: ALBUMIN 3.3 g/dl (3.4-5.0); BLOOD UREA NITROGEN 17.5 mg/dL (7-18); MAGNESIUM 1.5 mg/dL (1.8-2.4)
[2022-07-22 07:28] LABS: CREATININE 1.2 mg/dL (0.55-1.3)
[2022-07-22 07:29] LABS: PHOSPHOROUS 2.7 mg/dL (2.5-4.9)
[2022-07-22 07:30] LABS: BILIRUBIN,TOTAL 3.5 mg/dL (0.2-1); TOT PROT 5.9 g/dl (6.4-8.2)
[2022-07-22] MEDS: TAMSULOSIN HCL 0.4 MG CAP PO SCH (07:30)
[2022-07-22] MEDS: NIFEdipine E.R. 30 MG TABLET PO SCH (07:30)
[2022-07-22] MEDS ORDERED: NIFEdipine E.R. 30 MG TABLET ONE (07:32)
[2022-07-22] MEDS ORDERED: TAMSULOSIN HCL 0.4 MG CAP ONE (07:32)
[2022-07-22 08:10] LABS: BASO % 0.3 % (0-2.0); EOS % 0.1 % (0-4.5); HEMATOCRIT 39.7 % (35.4-49); HEMOGLOBIN 13.1 GM/dL (11.7-16.9); LYMPH % 2.9 % (8-40); MCH 28.6 pg (25.7-33.7); MEAN CELL VOLUME 86.7 fl (80-96); MEAN PLT VOLUME 9.3 fl (7.5-11.1); MONO % 8.2 % (3.8-10.2); NEUT % 88.5 % (42.8-82.8); PLATELET COUNT 90 10^3/uL (134-434); RBC 4.58 M/mm3 (4.00-5.60); RDW 16.3 % (11.9-15.9); WHITE BLOOD COUNT 13.5 K/mm3 (4.0-10.0)
[2022-07-22] MEDS ORDERED: MYCOPHENOLATE MOFETIL 500 MG TABLET PO SCH (10:00)
[2022-07-22] MEDS ORDERED: PANTOPRAZOLE 40 MG TABLET PO ONE (10:35)
[2022-07-22] MEDS ORDERED: metoPROLOL SUCCINATE 25 MG TAB.SR.24H (FP) PO ONE (10:36)
[2022-07-22] MEDS ORDERED: MAGNESIUM OXIDE 400 MG TABLET (FP) ONE (10:36)
[2022-07-22] MEDS ORDERED: PIPERACILLIN/TAZOB 3.375 GM 3.375 GM/50 ML BAG IVPB ONE (10:38)
[2022-07-22] MEDS: PIPERACILLIN/TAZOB 3.375 GM 3.375 GM in DEXTROSE 5%-WATER - 50 ML IVPB SCH ×3 (10:48→22:41)
[2022-07-22] MEDS: metoPROLOL SUCCINATE 25 MG TAB.SR.24H (FP) PO SCH (10:49)
[2022-07-22] MEDS: PANTOPRAZOLE 40 MG TABLET PO SCH (10:49)
[2022-07-22] MEDS: predniSONE 5 MG TABLET (UD) PO SCH (10:49)
[2022-07-22] MEDS: MAGNESIUM OXIDE 400 MG TABLET (FP) PO SCH ×2 (10:49→22:40)
[2022-07-22] MEDS: TACROLIMUS ANHYDROUS 1 MG CAPSULE PO SCH ×2 (11:54→22:40)
[2022-07-22] MEDS ORDERED: FUROSEMIDE 40 MG/4 ML INJECTABLE VIAL IVPUSH ONE (12:47)
[2022-07-22] MEDS ORDERED: guaiFENesin/D-METHORPHAN HB 10 ML UNIT-DOSE CUPS ONE (14:00)
[2022-07-22] MEDS ORDERED: PIPERACILLIN/TAZOBACTAM 3.375 GM VIAL IVPB ONE ×2 (15:35→20:55)
[2022-07-22] MEDS ORDERED: VANCOMYCIN/WATER FOR INJ (PEG) 1,000 MG/200 ML BAG IVPB ONE (17:30)
[2022-07-22] MEDS: RIVAROXABAN 20 MG TABLET PO SCH (18:06)
[2022-07-22] MEDS: ATORVASTATIN CA 10 MG TABLET (FP) PO SCH (22:40)
[2022-07-23] MEDS: PIPERACILLIN/TAZOB 3.375 GM 3.375 GM in DEXTROSE 5%-WATER - 50 ML IVPB SCH ×4 (03:58→17:12)
[2022-07-23 05:11] LABS: EPI CELLS 4 /uL (0-25.1); HYALINE CASTS 0 /uL (0-3.1); PH,URINE 5.5 (5.0-8.0); URINE APPEARANCE CLEAR; URINE BACTERIA 1 /uL (0-1359); URINE BILIRUBIN NEGATIVE (NEGATIVE); URINE COLOR YELLOW; URINE GLUCOSE (UA) NEGATIVE (NEGATIVE); URINE KETONE TRACE (NEGATIVE); URINE LEUK ESTERASE NEGATIVE (NEGATIVE); URINE NITRITE NEGATIVE (NEGATIVE); URINE PROTEIN 2+ (NEGATIVE); URINE RBC 12 /uL (0-23.9); URINE WBC 22 /uL (0-25.8)
[2022-07-23] MEDS: NIFEdipine E.R. 30 MG TABLET PO SCH (06:16)
[2022-07-23] MEDS: FUROSEMIDE 40 MG TABLET (FP) PO SCH ×2 (06:17→13:50)
[2022-07-23] MEDS: AZITHROMYCIN IVPB 500 MG/250 ML BAG IVPB SCH (06:18)
[2022-07-23] MEDS: INSULIN SLIDING SCALE (NOVOLOG) 1 VIAL SQ SCH ×4 (06:25→21:33)
[2022-07-23 09:57] LABS: BASO % 0.5 % (0-2.0); EOS % 1.1 % (0-4.5); HEMATOCRIT 39.5 % (35.4-49); HEMOGLOBIN 13.1 GM/dL (11.7-16.9); LYMPH % 5.2 % (8-40); MCH 28.9 pg (25.7-33.7); MCHC 33.1 g/dl (32.0-35.9); MEAN CELL VOLUME 87.3 fl (80-96); MEAN PLT VOLUME 9.3 fl (7.5-11.1); MONO % 7.3 % (3.8-10.2); NEUT % 85.9 % (42.8-82.8); PLATELET COUNT 86 10^3/uL (134-434); RBC 4.52 M/mm3 (4.00-5.60); RDW 16.8 % (11.9-15.9); WHITE BLOOD COUNT 10.4 K/mm3 (4.0-10.0)
[2022-07-23 10:24] LABS: ALBUMIN 3.2 g/dl (3.4-5.0); BLOOD UREA NITROGEN 24.4 mg/dL (7-18)
[2022-07-23 10:25] LABS: CALCIUM 8.4 mg/dL (8.5-10.1)
[2022-07-23 10:26] LABS: MAGNESIUM 1.7 mg/dL (1.8-2.4); PHOSPHOROUS 2.4 mg/dL (2.5-4.9)
[2022-07-23 10:27] LABS: CREATININE 1.4 mg/dL (0.55-1.3)
[2022-07-23 10:28] LABS: BILIRUBIN,TOTAL 2.8 mg/dL (0.2-1); TOT PROT 5.8 g/dl (6.4-8.2)
[2022-07-23] MEDS: PANTOPRAZOLE 40 MG TABLET PO SCH (11:10)
[2022-07-23] MEDS: metoPROLOL SUCCINATE 25 MG TAB.SR.24H (FP) PO SCH (11:10)
[2022-07-23] MEDS: predniSONE 5 MG TABLET (UD) PO SCH (11:10)
[2022-07-23] MEDS: TAMSULOSIN HCL 0.4 MG CAP PO SCH (11:10)
[2022-07-23] MEDS: TACROLIMUS ANHYDROUS 1 MG CAPSULE PO SCH ×2 (11:10→21:50)
[2022-07-23] MEDS: MAGNESIUM OXIDE 400 MG TABLET (FP) PO SCH ×2 (11:11→21:22)
[2022-07-23] MEDS: guaiFENesin 200 MG/10 ML 10 ML UNIT-DOSE CUPS PO PRN (11:18)
[2022-07-23] MEDS ORDERED: POTASSIUM CHLORIDE TABS 20 MEQ TABLET.ER (FP) PO ONE (14:52)
[2022-07-23] MEDS: NAPH,MB-DB/K PH,MBDB POWDER PACKET PO SCH ×2 (15:41→21:22)
[2022-07-23] MEDS: RIVAROXABAN 20 MG TABLET PO SCH (17:13)
[2022-07-23] MEDS ORDERED: VANCOMYCIN/WATER FOR INJ (PEG) 1,000 MG/200 ML BAG IVPB ONE (20:00)
[2022-07-23] MEDS: ATORVASTATIN CA 10 MG TABLET (FP) PO SCH (21:21)
[2022-07-24] MEDS: PIPERACILLIN/TAZOB 3.375 GM 3.375 GM in DEXTROSE 5%-WATER - 50 ML IVPB SCH ×2 (01:43→11:09)
[2022-07-24] MEDS: FUROSEMIDE 40 MG TABLET (FP) PO SCH ×2 (05:28→14:32)
[2022-07-24] MEDS: INSULIN SLIDING SCALE (NOVOLOG) 1 VIAL SQ SCH ×4 (06:26→21:15)
[2022-07-24] MEDS: NIFEdipine E.R. 30 MG TABLET PO SCH (06:26)
[2022-07-24 09:26] LABS: BASO % 0.6 % (0-2.0); EOS % 1.6 % (0-4.5); HEMATOCRIT 41.5 % (35.4-49); HEMOGLOBIN 13.3 GM/dL (11.7-16.9); LYMPH % 5.2 % (8-40); MEAN CELL VOLUME 87.5 fl (80-96); MEAN PLT VOLUME 9.7 fl (7.5-11.1); MONO % 7.7 % (3.8-10.2); NEUT % 84.9 % (42.8-82.8); PLATELET COUNT 105 10^3/uL (134-434); RBC 4.74 M/mm3 (4.00-5.60); RDW 16.7 % (11.9-15.9); WHITE BLOOD COUNT 11.3 K/mm3 (4.0-10.0)
[2022-07-24 09:49] LABS: CALCIUM 9.1 mg/dL (8.5-10.1)
[2022-07-24 09:50] LABS: ALBUMIN 3.5 g/dl (3.4-5.0); BLOOD UREA NITROGEN 29.1 mg/dL (7-18); MAGNESIUM 1.7 mg/dL (1.8-2.4)
[2022-07-24 09:53] LABS: CREATININE 1.3 mg/dL (0.55-1.3); PHOSPHOROUS 2.6 mg/dL (2.5-4.9)
[2022-07-24 09:54] LABS: BILIRUBIN,TOTAL 2.6 mg/dL (0.2-1); TOT PROT 6.4 g/dl (6.4-8.2)
[2022-07-24] MEDS: TAMSULOSIN HCL 0.4 MG CAP PO SCH (11:05)
[2022-07-24] MEDS: TACROLIMUS ANHYDROUS 1 MG CAPSULE PO SCH ×2 (11:06→21:10)
[2022-07-24] MEDS: predniSONE 5 MG TABLET (UD) PO SCH (11:06)
[2022-07-24] MEDS: MAGNESIUM OXIDE 400 MG TABLET (FP) PO SCH ×2 (11:06→21:10)
[2022-07-24] MEDS: PANTOPRAZOLE 40 MG TABLET PO SCH (11:07)
[2022-07-24] MEDS: metoPROLOL SUCCINATE 25 MG TAB.SR.24H (FP) PO SCH (11:08)
[2022-07-24] MEDS: guaiFENesin 200 MG/10 ML 10 ML UNIT-DOSE CUPS PO PRN ×3 (11:09→22:00)
[2022-07-24] MEDS: AMPICILLIN NA/SULBACTAM NA 3 GM in SODIUM CHLORIDE 100 ML IVPB SCH (18:03)
[2022-07-24] MEDS: RIVAROXABAN 20 MG TABLET PO SCH (18:04)
[2022-07-24] MEDS: ATORVASTATIN CA 10 MG TABLET (FP) PO SCH (21:10)
[2022-07-25] MEDS: AMPICILLIN NA/SULBACTAM NA 3 GM in SODIUM CHLORIDE 100 ML IVPB SCH ×3 (01:50→17:15)
[2022-07-25] MEDS: guaiFENesin 200 MG/10 ML 10 ML UNIT-DOSE CUPS PO PRN ×3 (02:11→22:27)
[2022-07-25] MEDS: FUROSEMIDE 40 MG TABLET (FP) PO SCH ×2 (05:23→14:48)
[2022-07-25] MEDS: INSULIN SLIDING SCALE (NOVOLOG) 1 VIAL SQ SCH ×4 (06:04→22:09)
[2022-07-25] MEDS: NIFEdipine E.R. 30 MG TABLET PO SCH (06:04)
[2022-07-25] MEDS: TAMSULOSIN HCL 0.4 MG CAP PO SCH (09:44)
[2022-07-25] MEDS: metoPROLOL SUCCINATE 25 MG TAB.SR.24H (FP) PO SCH (09:44)
[2022-07-25] MEDS: TACROLIMUS ANHYDROUS 1 MG CAPSULE PO SCH ×2 (09:44→22:09)
[2022-07-25] MEDS: PANTOPRAZOLE 40 MG TABLET PO SCH (09:44)
[2022-07-25] MEDS: predniSONE 5 MG TABLET (UD) PO SCH (09:44)
[2022-07-25] MEDS: MAGNESIUM OXIDE 400 MG TABLET (FP) PO SCH ×2 (09:44→22:09)
[2022-07-25 10:44] LABS: HEMATOCRIT 40.3 % (35.4-49); MCH 28.3 pg (25.7-33.7); MCHC 32.4 g/dl (32.0-35.9); MEAN CELL VOLUME 87.3 fl (80-96); MEAN PLT VOLUME 9.1 fl (7.5-11.1); PLATELET COUNT 108 10^3/uL (134-434); RBC 4.61 M/mm3 (4.00-5.60); RDW 16.3 % (11.9-15.9); WHITE BLOOD COUNT 9.4 K/mm3 (4.0-10.0)
[2022-07-25 11:02] LABS: ALBUMIN 3.3 g/dl (3.4-5.0); BLOOD UREA NITROGEN 26.4 mg/dL (7-18); CALCIUM 8.9 mg/dL (8.5-10.1)
[2022-07-25 11:05] LABS: CREATININE 1.1 mg/dL (0.55-1.3)
[2022-07-25 11:07] LABS: BILIRUBIN,TOTAL 2.3 mg/dL (0.2-1)
[2022-07-25] MEDS: RIVAROXABAN 20 MG TABLET PO SCH (17:15)
[2022-07-25] MEDS ORDERED: INSULIN (NOVOLOG) ASPART 100 UNITS/ML 10ML VIAL ONE (21:43)
[2022-07-25] MEDS: ATORVASTATIN CA 10 MG TABLET (FP) PO SCH (22:09)
[2022-07-26] MEDS: AMPICILLIN NA/SULBACTAM NA 3 GM in SODIUM CHLORIDE 100 ML IVPB SCH ×3 (02:01→18:20)
[2022-07-26] MEDS: FUROSEMIDE 40 MG TABLET (FP) PO SCH ×2 (06:09→14:36)
[2022-07-26] MEDS: INSULIN SLIDING SCALE (NOVOLOG) 1 VIAL SQ SCH ×4 (06:09→21:53)
[2022-07-26] MEDS: NIFEdipine E.R. 30 MG TABLET PO SCH (06:21)
[2022-07-26 09:38] VITALS: RESP 20
[2022-07-26 10:18] LABS: HEMATOCRIT 40.9 % (35.4-49); HEMOGLOBIN 13.7 GM/dL (11.7-16.9); MCHC 33.4 g/dl (32.0-35.9); MEAN CELL VOLUME 86.9 fl (80-96); MEAN PLT VOLUME 9.7 fl (7.5-11.1); PLATELET COUNT 118 10^3/uL (134-434); RBC 4.71 M/mm3 (4.00-5.60); RDW 16.1 % (11.9-15.9); WHITE BLOOD COUNT 7.5 K/mm3 (4.0-10.0)
[2022-07-26] MEDS: MAGNESIUM OXIDE 400 MG TABLET (FP) PO SCH ×2 (10:21→21:49)
[2022-07-26] MEDS: metoPROLOL SUCCINATE 25 MG TAB.SR.24H (FP) PO SCH (10:21)
[2022-07-26] MEDS: predniSONE 5 MG TABLET (UD) PO SCH (10:21)
[2022-07-26] MEDS: TAMSULOSIN HCL 0.4 MG CAP PO SCH (10:22)
[2022-07-26] MEDS: TACROLIMUS ANHYDROUS 1 MG CAPSULE PO SCH ×2 (10:22→21:50)
[2022-07-26 10:59] LABS: CALCIUM 9.3 mg/dL (8.5-10.1)
[2022-07-26 11:00] LABS: ALBUMIN 3.6 g/dl (3.4-5.0); BLOOD UREA NITROGEN 27.2 mg/dL (7-18); MAGNESIUM 1.9 mg/dL (1.8-2.4)
[2022-07-26 11:05] LABS: BILIRUBIN,TOTAL 2.3 mg/dL (0.2-1); TOT PROT 6.7 g/dl (6.4-8.2)
[2022-07-26] MEDS: RIVAROXABAN 20 MG TABLET PO SCH (18:20)
[2022-07-26] MEDS: ATORVASTATIN CA 10 MG TABLET (FP) PO SCH (21:49)
[2022-07-26] MEDS: guaiFENesin 200 MG/10 ML 10 ML UNIT-DOSE CUPS PO PRN (21:56)
[2022-07-27] MEDS: AMPICILLIN NA/SULBACTAM NA 3 GM in SODIUM CHLORIDE 100 ML IVPB SCH ×3 (02:37→11:34)
[2022-07-27] MEDS: FUROSEMIDE 40 MG TABLET (FP) PO SCH ×2 (06:37→14:43)
[2022-07-27] MEDS: NIFEdipine E.R. 30 MG TABLET PO SCH (06:37)
[2022-07-27] MEDS: INSULIN SLIDING SCALE (NOVOLOG) 1 VIAL SQ SCH ×3 (06:39→16:50)
[2022-07-27] MEDS: TAMSULOSIN HCL 0.4 MG CAP PO SCH (08:51)
[2022-07-27] MEDS: predniSONE 5 MG TABLET (UD) PO SCH ×2 (08:51→11:33)
[2022-07-27] MEDS: MAGNESIUM OXIDE 400 MG TABLET (FP) PO SCH ×2 (08:51→11:33)
[2022-07-27] MEDS: metoPROLOL SUCCINATE 25 MG TAB.SR.24H (FP) PO SCH ×2 (08:52→11:34)
[2022-07-27] MEDS: TACROLIMUS ANHYDROUS 1 MG CAPSULE PO SCH ×2 (08:53→11:33)
[2022-07-27] MEDS: guaiFENesin 200 MG/10 ML 10 ML UNIT-DOSE CUPS PO PRN (09:16)
[2022-07-27 10:05] LABS: HEMATOCRIT 39.7 % (35.4-49); HEMOGLOBIN 13.2 GM/dL (11.7-16.9); MCH 28.7 pg (25.7-33.7); MCHC 33.1 g/dl (32.0-35.9); MEAN CELL VOLUME 86.7 fl (80-96); MEAN PLT VOLUME 8.8 fl (7.5-11.1); PLATELET COUNT 116 10^3/uL (134-434); RBC 4.58 M/mm3 (4.00-5.60); RDW 16.4 % (11.9-15.9); WHITE BLOOD COUNT 6.9 K/mm3 (4.0-10.0)
[2022-07-27 10:10] LABS: ALBUMIN 3.2 g/dl (3.4-5.0)
[2022-07-27 10:11] LABS: BLOOD UREA NITROGEN 22.1 mg/dL (7-18); MAGNESIUM 1.9 mg/dL (1.8-2.4)
[2022-07-27 10:13] LABS: CREATININE 0.9 mg/dL (0.55-1.3)
[2022-07-27 10:15] LABS: BILIRUBIN,TOTAL 1.6 mg/dL (0.2-1); TOT PROT 6.2 g/dl (6.4-8.2)
[2022-07-27 15:34] VITALS: BP 117/60; PULSE 75; TEMP 98.4
[2022-07-27] MEDS: RIVAROXABAN 20 MG TABLET PO SCH (17:54)
[2022-07-27] MEDS ORDERED: MYCOPHENOLATE SODIUM 360 MG TABLET.DR PO SCH (22:00)
== END 2022-07-27 18:56 | disposition home or self-care (01) | DRG 871 ==
LOC: JER 20:28 → JERBED 23:34 → J8W 07-22 14:28
PROVIDERS: ADMIT Internal Medicine; ATTEND Internal Medicine
DX: A41.81 Sepsis due to Enterococcus (principal); I50.33 Acute on chronic diastolic (congestive) heart failure; J96.21 Acute and chronic respiratory failure with hypoxia; N39.0 Urinary tract infection, site not specified; I31.39 Other pericardial effusion (noninflammatory); Z94.0 Kidney transplant status; N17.9 Acute kidney failure, unspecified; I13.0 Hypertensive heart and chronic kidney disease with heart failure and stage 1 through stage 4 chronic kidney disease, or unspecified chronic kidney disease; I25.10 Atherosclerotic heart disease of native coronary artery without angina pectoris; N18.9 Chronic kidney disease, unspecified; K21.9 Gastro-esophageal reflux disease without esophagitis; E78.5 Hyperlipidemia, unspecified; K80.80 Other cholelithiasis without obstruction; K74.60 Unspecified cirrhosis of liver; I25.2 Old myocardial infarction; D69.6 Thrombocytopenia, unspecified; I48.91 Unspecified atrial fibrillation; Z86.718 Personal history of other venous thrombosis and embolism; Z86.73 Personal history of transient ischemic attack (TIA), and cerebral infarction without residual deficits; Z95.2 Presence of prosthetic heart valve; Z85.53 Personal history of malignant neoplasm of renal pelvis
CPT/HCPCS: 0241U-QW; 36415; 71045-TC-FY; 71250-TC; 74176-TC; 76776-TC; 80048; 80053; 80061; 80197; 81003; 82803; 82962; 83605; 83690; 83735; 83880; 84100; 84443; 84484; 85025; 85027; 85610; 85730; 86850; 86900; 86901; 87040; 87086; 87186; 87899; 93005; 93010; 93306-TC; 97116-GP; 99285-25; J7517

== ENCOUNTER 2022-10-18 11:59 | Inpatient (IN) | payer OTHER, MEDICARE ==
[2022-10-18 16:15] LABS: BASO % 0.6 % (0-2.0); EOS % 1.5 % (0-4.5); HEMATOCRIT 46.2 % (35.4-49); HEMOGLOBIN 14.7 GM/dL (11.7-16.9); LYMPH % 10.3 % (8-40); MCHC 31.9 g/dl (32.0-35.9); MEAN CELL VOLUME 87.7 fl (80-96); MEAN PLT VOLUME 9.7 fl (7.5-11.1); MONO % 7.9 % (3.8-10.2); NEUT % 79.7 % (42.8-82.8); PLATELET COUNT 80 10^3/uL (134-434); RBC 5.27 M/mm3 (4.00-5.60); RDW 17.2 % (11.9-15.9); WHITE BLOOD COUNT 6.6 K/mm3 (4.0-10.0)
[2022-10-18 16:30] LABS: SODIUM 143 mmol/L (136-145)
[2022-10-18 16:31] LABS: CALCIUM 9.1 mg/dL (8.5-10.1)
[2022-10-18 16:32] LABS: ALBUMIN 3.7 g/dl (3.4-5.0); BLOOD UREA NITROGEN 30.9 mg/dL (7-18); CO2 26 mmol/L (21-32); GLUCOSE,RANDOM 166 mg/dL (74-106)
[2022-10-18 16:35] LABS: CREATININE 1.4 mg/dL (0.55-1.3); SGPT/ALT 20 U/L (13-61)
[2022-10-18 16:36] LABS: EPI CELLS 3 /uL (0-25.1); HYALINE CASTS 0 /uL (0-3.1); URINE APPEARANCE CLEAR; URINE BACTERIA 1 /uL (0-1359); URINE BILIRUBIN NEGATIVE (NEGATIVE); URINE COLOR DK YELLOW; URINE GLUCOSE (UA) NEGATIVE (NEGATIVE); URINE KETONE NEGATIVE (NEGATIVE); URINE LEUK ESTERASE NEGATIVE (NEGATIVE); URINE NITRITE NEGATIVE (NEGATIVE); URINE PROTEIN 3+ (NEGATIVE); URINE RBC 15 /uL (0-23.9); URINE WBC 10 /uL (0-25.8)
[2022-10-18 16:37] LABS: TOT PROT 6.4 g/dl (6.4-8.2)
[2022-10-18 16:38] LABS: ALK PHOS 88 U/L (45-117)
[2022-10-18 16:42] LABS: SGOT/AST 30 U/L (15-37)
[2022-10-18 16:46] LABS: ANION GAP 12 MMOL/L (8-16); BILIRUBIN,TOTAL 1.9 mg/dL (0.2-1); CHLORIDE 105 mmol/L (98-107); N-TERMINAL BNP 10269.3 pg/ml (5-450)
[2022-10-18] MEDS ORDERED: FUROSEMIDE 40 MG/4 ML INJECTABLE VIAL IVPUSH ONE (20:43)
[2022-10-18] MEDS ORDERED: FUROSEMIDE 40 MG/4 ML INJECTABLE VIAL ONE (20:51)
[2022-10-18 22:29] LABS: BILIRUBIN,DIRECT 0.6 mg/dL (0.0-0.2)
[2022-10-19] MEDS: INSULIN SLIDING SCALE (NOVOLOG) 1 VIAL SQ SCH ×3 (06:05→16:36)
[2022-10-19] MEDS ORDERED: NIFEDIPINE 30 MG PO SCH (07:00)
[2022-10-19 07:25] LABS: HEMATOCRIT 41.9 % (35.4-49); HEMOGLOBIN 13.6 GM/dL (11.7-16.9); MCH 28.6 pg (25.7-33.7); MCHC 32.5 g/dl (32.0-35.9); PLATELET COUNT 76 10^3/uL (134-434); RBC 4.76 M/mm3 (4.00-5.60); WHITE BLOOD COUNT 6.8 K/mm3 (4.0-10.0)
[2022-10-19 07:39] LABS: ALBUMIN 3.2 g/dl (3.4-5.0); CALCIUM 8.6 mg/dL (8.5-10.1)
[2022-10-19 07:42] LABS: CREATININE 1.3 mg/dL (0.55-1.3); PHOSPHOROUS 3.7 mg/dL (2.5-4.9)
[2022-10-19 07:43] LABS: MAGNESIUM 1.9 mg/dL (1.8-2.4)
[2022-10-19 07:44] LABS: BILIRUBIN,TOTAL 1.5 mg/dL (0.2-1); TOT PROT 5.4 g/dl (6.4-8.2)
[2022-10-19] MEDS ORDERED: TAMSULOSIN HCL 0.4 MG CAP PO SCH (08:30)
[2022-10-19 09:57] VITALS: RESP 18
[2022-10-19] MEDS ORDERED: metoPROLOL SUCCINATE 25 MG TAB.SR.24H (FP) PO SCH (10:00)
[2022-10-19] MEDS ORDERED: MAGNESIUM OXIDE 400 MG TABLET (FP) PO SCH (10:00)
[2022-10-19] MEDS ORDERED: MYCOPHENOLATE MOFETIL 500 MG TABLET PO SCH (10:00)
[2022-10-19] MEDS ORDERED: TACROLIMUS ANHYDROUS 1 MG CAPSULE PO SCH (10:00)
[2022-10-19] MEDS ORDERED: predniSONE 5 MG TABLET (UD) PO SCH (10:00)
[2022-10-19] MEDS ORDERED: FUROSEMIDE 40 MG TABLET (FP) PO SCH (10:00)
[2022-10-19] MEDS ORDERED: FUROSEMIDE 40 MG/4 ML INJECTABLE VIAL IVPUSH SCH (11:00)
[2022-10-19 18:27] VITALS: BP 145/82; PULSE 68; TEMP 97.4
[2022-10-19] MEDS ORDERED: ATORVASTATIN CA 10 MG TABLET (FP) PO SCH (22:00)
[2022-10-19] MEDS ORDERED: RIVAROXABAN 20 MG TABLET PO SCH (22:00)
[2022-10-20] MEDS ORDERED: FUROSEMIDE 40 MG TABLET (FP) PO SCH (10:00)
== END 2022-10-19 19:24 | disposition short-term general hospital (02) | DRG 291 ==
LOC: JER 11:59 → JERBED 19:08 → J4W 22:12
PROVIDERS: ADMIT Internal Medicine; ATTEND Internal Medicine
DX: I11.0 Hypertensive heart disease with heart failure (principal); I50.33 Acute on chronic diastolic (congestive) heart failure; I24.8 Other forms of acute ischemic heart disease; T86.19 Other complication of kidney transplant; N17.9 Acute kidney failure, unspecified; R18.8 Other ascites; I25.10 Atherosclerotic heart disease of native coronary artery without angina pectoris; I25.2 Old myocardial infarction; E78.5 Hyperlipidemia, unspecified; Z86.16 Personal history of COVID-19; I48.91 Unspecified atrial fibrillation; Z99.81 Dependence on supplemental oxygen; Z95.2 Presence of prosthetic heart valve; K21.9 Gastro-esophageal reflux disease without esophagitis; Z86.74 Personal history of sudden cardiac arrest; Y83.0 Surgical operation with transplant of whole organ as the cause of abnormal reaction of the patient, or of later complication, without mention of misadventure at the time of the procedure
CPT/HCPCS: 0241U-QW; 36415; 71046-TC-FY; 71250-TC; 74176-TC; 76705-TC; 80053; 80197; 81003; 82248; 82962; 83605; 83735; 83880; 84100; 84484; 85025; 85027; 87086; 93005; 93010; 93306-TC; 93971-RT; 99285-25; J7517